=== PATIENT | male | born 1955 | race Caucasian/White ===

== ENCOUNTER → 2020-09-16 12:07 | Outpatient (CLI) | payer MEDICARE, SELFPAY ==
--- NOTE | ~2020-09-16 | XR_ITS ---
XR hip LT 2V w AP pelvis 09/16/2020 12:40 INDICATION: Left hip pain PROCEDURE: 3 views left hip COMPARISON: 06/06/2014 FINDINGS: Fracture, dislocation or subluxation is not identified. Pelvic rings are intact. Sacral for amen are symmetric. The soft tissues appear within normal limits. No foreign bodies are identified. There is mild osteoarthritis of the hips. IMPRESSION: 1: Mild osteoarthritis of the hips. Reviewed, dictated and finalized at location B.
== END ==
PROVIDERS: PCP Family Medicine; Visit Provider Family Medicine
DX: M25.552 Pain in left hip (principal); M16.0 Bilateral primary osteoarthritis of hip
CPT/HCPCS: 73502

== ENCOUNTER → 2020-10-27 14:23 | Outpatient (CLI) | payer MEDICARE, SELFPAY ==
--- NOTE | ~2020-10-27 | MR_ITS ---
EXAMINATION: MR lumbar spine wo con DATE: 10/27/2020 15:16 INDICATION: Low back pain. Left hip pain. TECHNIQUE: Magnetic resonance imaging (MRI) of the lumbar spine was performed without intravenous con trast. Sequences included sagittal T2-weighted FSE, sagittal T2-weighted FS FSE, sagittal T1-weighted FSE, and axial T2-weighted FSE. COMPARISON: CT abdomen and pelvis 02/15/2016 FINDINGS: Bone alignment is normal. There is mild chronic anterior wedging of T12 and L1 vertebral gilbert dies, likely physiologic. There is a 17 mm sclerotic lesion in L4 vertebral body. There is mildly dec reased disc height at L2-L3, L3-L4, and L5-S1. The distal spinal cord signal intensity is normal. The conus medullaris is at T12. The following disc levels are specifically discussed: L1-L2: The disc does not extend beyond the endplate margin. There is moderate bilateral facet joint o steoarthritis. There is no neural foraminal stenosis. There is no central canal stenosis. L2-L3: The disc is bulging. There is moderate bilateral facet joint osteoarthritis. There is mild anna ateral neural foraminal stenosis. There is no central canal stenosis. L3-L4: The disc is bulging and has an annular fissure. There is moderate bilateral facet joint osteoa rthritis. There is mild bilateral neural foraminal stenosis. There is mild central canal stenosis wit h posterior decompression. L4-L5: The disc does not extend beyond the endplate margin. There is moderate bilateral facet joint o steoarthritis. There is mild bilateral neural foraminal stenosis. There is no central canal stenosis. L5-S1: There is a left central protrusion with annular fissure. There is mild bilateral facet joint o steoarthritis. There is mild bilateral neural foraminal stenosis. There is mild central canal stenosi s. IMPRESSION: 1. L4 sclerotic lesion without correlate on the prior CT suspicious for metastatic disease. Lumbar sp ine CT is recommended. 2. Mild lumbar spondylosis. Reviewed, dictated and finalized at location A. [employer] IMPRESSION: 1. L4 sclerotic lesion without correlate on the prior CT suspicious for metasta tic disease. Lumbar spine CT is recommended. 2. Mild lumbar spondylosis.
== END ==
PROVIDERS: PCP Family Medicine; Visit Provider Nurse Practitioner Family
DX: M47.817 Spondylosis without myelopathy or radiculopathy, lumbosacral region (principal); M48.07 Spinal stenosis, lumbosacral region
CPT/HCPCS: 72148

== ENCOUNTER 2021-03-02 13:29 | Outpatient (CLI) | payer MEDICARE, SELFPAY ==
--- NOTE | ~2021-03-02 | XR_ITS ---
EXAMINATION: XR chest 2V DATE: 03/02/2021 13:46 INDICATION: Dyspnea. Recent COVID-19 pneumonia. TECHNIQUE: Frontal and lateral views of the chest were obtained. COMPARISON: Chest 2 views 06/24/2014 FINDINGS: There are mild airspace opacities in the lower lung zones. No pleural effusion or pneumotho rax. The heart size is normal. Surgical clips in the right upper quadrant are likely from cholecystec cris. IMPRESSION: 1. Mild airspace opacities in the lower lung zones, consistent with atelectasis versus pneumonia. Reviewed, dictated and finalized at location A.
== END 2021-03-02 13:30 | disposition home or self-care (01) ==
PROVIDERS: PCP Family Medicine; Visit Provider Family Medicine
DX: R06.00 Dyspnea, unspecified (principal)
CPT/HCPCS: 71046

== ENCOUNTER 2021-03-22 07:38 | Outpatient (CLI) | payer MEDICARE, SELFPAY ==
--- NOTE | 2021-03-22 15:57 | WPDPFTINT ---
PFT Procedure Performed PFT Procedure Performed Spirometry with Pre/Post Bronchodilator Plethysmography (Lung Vol) Diffusing Cap (DLCO) Flow Vol Loop PFT Interpretation This is a pulmonary function test with pre and post-bronchodilator spirometry, plethysmography and diffusing capacity. The test was performed and results interpreted in accordance with the 2019 and 2005 ATS/ERS Task Force guidelines respectively using the Global Lung Function Initiative-2012 reference equations. Patient demonstrated good effort and cooperation. Reproducibility criteria were met. The quality of the pre bronchodilator spirometry maneuver was Grade B and post bronchodilator spirometry maneuver was Grade A. Findings: Spirometry: There is decreased maximal expiratory airflow at all lung volumes with a concave expiratory flow tracing. The contour the inspiratory flow tracing is normal. The pre bronchodilator FVC is 4.25 L, 94% predicted. The pre bronchodilator FEV1 is 2.63 L, 75% predicted. The FEV1: FVC ratio 62%. The post bronchodilator FVC is 4.34 L, representing a 2% increase. The post bronchodilator FEV1 is 2.75 L, representing a 4% increase. Plethysmography: The total lung capacity is 9.14 L, 130% predicted. The functional residual capacity is 5.94 L, 162% predicted. The residual volume is 4.89 L, 212% predicted. Diffusion capacity: The absolute diffusion capacity is 21.5, 77% predicted. The diffusing capacity corrected for alveolar volume is 4.11, 99% predicted. Impression: There is a mild obstructive abnormality with a normal FEV1 and without significant improvement after inhaling a single dose of albuterol. The increase in residual volume is consistent with air trapping from an obstructive abnormality. Hyperinflation is present is demonstrated by the increase in functional residual capacity and total lung capacity and is consistent with an obstructive abnormality. The diffusing capacity is normal. There are no prior studies for comparison
== END 2021-03-22 07:39 | disposition home or self-care (01) ==
PROVIDERS: PCP Family Medicine; Visit Provider Family Medicine
DX: R06.00 Dyspnea, unspecified (principal)
CPT/HCPCS: 94060; 94726; 94729

== ENCOUNTER 2021-05-10 13:44 | Emergency (ER) | payer MEDICARE, SELFPAY ==
[2021-05-10 13:54] VITALS: BP 135/78; PULSE 112; RESP 18; TEMP 36.7; O2SAT 95
[2021-05-10] MEDS: ONDANSETRON INJ 4 MG/2 ML VIAL IV PUSH (14:39)
[2021-05-10] MEDS: SODIUM CHLORIDE 0.9% IV 1,000 ML 999 ML IV CONT (14:39)
[2021-05-10 14:41] LABS: Basophils Percent Auto 0.3 % (0.2-1.2); Eosinophils Absolute Auto 0.1 K/mm3 (0-0.3); Eosinophils Percent Auto 1.1 % (0-4.4); Hematocrit 49.3 % (42.0-52.0); Hemoglobin 16.8 g/dL (14.0-18.0); Immature Granulocyte Absolute 0.04 K/mm3 (0.00-0.031); Immature Granulocyte Percent A 0.3 % (0-0.5); Lymphocytes Absolute Auto 0.81 K/mm3 (0.9-3.2); Lymphocytes Percent Auto 6.7 % (18.3-44.2); Mean Corpuscular HGB Conc 34.1 g/dl (32-36); Mean Corpuscular Hemoglobin 29.3 pg (26-34); Mean Corpuscular Volume 85.9 fl (80-100); Mean Platelet Volume 10.5 fl (7.4-10.4); Monocytes Absolute Auto 0.6 K/mm3 (0.1-0.6); Neutrophils Absolute Auto 10.5 K/mm3 (1.3-6.7); Neutrophils Percent Auto 86.6 % (45.5-73.1); Platelet Count Result 228 k/mm3 (150-375); Red Blood Count 5.74 M/mm3 (4.6-6.20); White Blood Count 12.1 K/mm3 (4.5-10.0)
[2021-05-10 15:32] LABS: Alanine Aminotransferase 17 U/L (4-50); Albumin Level 3.5 g/dL (3.5-5.1); Alkaline Phosphatase 48 U/L (38-126); Anion Gap 8 mmol/L (8-16); Aspartate Amino Transferase 22 U/L (17-59); Bilirubin,Total 0.9 mg/dL (0.2-1.3); Blood Urea Nitrogen 14 mg/dL (9-20); Calcium 7.9 mg/dL (8.4-10.2); Carbon Dioxide 23 mmol/L (22-30); Chloride 106 mmol/L (98-107); Estimated CRCL calculation 79 ml/min; Estimated Glomerular Filt Rate > 60; Glucose 106 mg/dL (75-110); Lipase 24 U/L (23-300); Potassium 3.6 mmol/L (3.4-5.0); Sodium 137 mmol/L (137-145)
--- NOTE | 2021-05-10 15:56 | ED.NAVMDI ---
HPI - Nausea/Vomiting/Diarrhea General Chief complaint: Nausea/Vomiting/Diarrhea Stated complaint: FEVER,ABD PAIN,DIARRHEA Time Seen by Provider: 05/10/21 13:52 History of Present Illness HPI Narrative: Patient is a 65-year-old male who presents ER with diarrhea. Onset yesterday. He reports 20 episodes of loose stools in the last 2 days. Reports fever 103.0 ?F last night. No aggravating or alleviating factors. No known sick contacts. No swelled food ingested. Reports he has not recently been on antibiotics. He is having some crampy abdominal discomfort related to the diarrhea but no overt pain. No blood in stool or vomit. Related Data Home Medications Medication Instructions Recorded Confirmed acetaminophen 650 mg 650 mg PO Q12H 10/19/20 03/02/21 tablet,extended release Allergies Allergy/AdvReac Type Severity Reaction Status Date / Time latex Allergy Unknown Blister Verified 05/10/21 14:04 Review of Systems Review of Systems: All systems reviewed & are unremarkable except as noted in HPI and below Constitutional: Constitutional: Denies chills, Denies fever(s) and Denies weakness ENT: Denies nasal congestion and Denies sore throat Cardiovascular: Cardiovascular: Denies chest pain and Denies radiating jaw, neck or arm pain Gastrointestinal: Gastrointestinal: Reports abdominal pain, Denies heartburn, Reports diarrhea, Reports nausea and Reports vomiting Genitourinary: Genitourinary: Denies hematuria, Denies dysuria and Denies urinary frequency [facility] Past Medical History Medical History (Updated 05/10/21 @ 16:41 by Hari Ball MD) Abnormal fasting glucose Adhesive capsulitis of left shoulder BMI 29.0-29.9,adult BMI 31.0-31.9,adult Chronic bilateral low back pain with bilateral sciatica Chronic depression Chronic left shoulder pain COPD (chronic obstructive pulmonary disease) (03/22/21) mild obstructive airway disease with air trapping on PFT on 03/22/2021 COVID-19 (11/09/20) Depression Dyspnea on exertion Exposure to COVID-19 virus GERD with esophagitis Hypertension Irritable bowel syndrome with diarrhea Left hip pain Loss, sense of, smell Lumbar back pain with radiculopathy affecting left lower extremity Nocturia Plantar fasciitis, bilateral Polyp of colon Psoriasis Seasonal allergic rhinitis Vitamin B12 deficiency anemia Vitamin D deficiency, unspecified Surgical History Surgical History History of cholecystectomy (~01/2010) Previous back surgery (~02/2018) Family History Family History Mother Family history of diabetes mellitus in first degree relative Father , rx drug overdose Depression Grandparent Cerebrovascular accident Heart disease Grandparent Leukemia Cancer Grandparent Depression Suicide Sibling Diabetes mellitus Sibling Autoimmune disorder Other Arthritis Hypertension Social History Social History Smoking status: Former smoker Smoking end date: 11/27/09 Alcohol intake: current Gender identity (if verbalized by the patient): Male Exam Narrative: Exam Narrative: GENERAL: Well-appearing, well-nourished, and in no acute distress. HEAD: Normocephalic, atraumatic. EYES: PERRL and EOMI. CHEST: Clear to auscultation. No respiratory distress. HEART: Regular rate and rhythm. Normal peripheral pulses. ABDOMEN: Soft, nontender, nondistended. EXTREMITIES: Normal range of motion. No edema. SKIN: Warm, dry, no rash. NEURO: Alert and oriented x3. Course Course Emergency Course: Abdomen still soft nontender nondistended. Feels better with fluids and antiemetics. Discharge with supportive therapy. Vital Signs Vital signs: Vital Signs Temperature 98.1 F 05/10/21 13:54 Pulse Rate 112 H 05/10/21 13:54 Respiratory Rate 18
[2021-05-10 17:05] VITALS: BP 114/89; PULSE 101; RESP 16
== END 2021-05-10 17:05 | disposition home or self-care (01) ==
PROVIDERS: Emergency Provider Emergency Medicine; PCP Family Medicine
DX: K52.9 Noninfective gastroenteritis and colitis, unspecified (principal); F32.9 Major depressive disorder, single episode, unspecified; J44.9 Chronic obstructive pulmonary disease, unspecified; K21.9 Gastro-esophageal reflux disease without esophagitis; I10 Essential (primary) hypertension
CPT/HCPCS: 36415; 80053; 83690; 85025; 96361; 96374; 99284; J2405; J7030

== ENCOUNTER 2021-05-14 05:04 | Emergency (ER) | payer MEDICARE, SELFPAY ==
--- NOTE | ~2021-05-14 | CT_ITS ---
EXAMINATION: CT abdomen pelvis w con DATE: 05/14/2021 06:14 INDICATION: Abdominal pain TECHNIQUE: Computed tomography (CT) of the abdomen and pelvis was performed with 100 cc Omnipaque 350 intravenous contrast. The dose-length product was 832.48 mGy-cm. Automated exposure control and iter ative reconstruction technique were employed. COMPARISON: None. FINDINGS: Lung bases are unremarkable. Heart size normal. No significant pleural or pericardial effus ion. No significant vascular abnormality. No lymphadenopathy. Fatty infiltration of the liver. Status post cholecystectomy. The spleen, pancreas, adrenal glands an d kidneys are unremarkable. No hydronephrosis. There is mild thickening of the sigmoid colon and rect um, consistent with mild proctocolitis. No free air or free fluid. Mild atherosclerosis of the aorta without aneurysm. No acute osseous abnormality. Mild lumbar spondylosis. IMPRESSION: 1. Mild thickening of the sigmoid colon and rectum, compatible with proctocolitis, most likely infect ious or inflammatory. Reviewed, dictated and finalized at location A. IMPRESSION: 1. Mild thickening of the sigmoid colon and rectum, compatible with proctocolit is, most likely infectious or inflammatory.
[2021-05-14 05:09] VITALS: BP 151/139; PULSE 110; RESP 16; TEMP 36.5; O2SAT 95
--- NOTE | 2021-05-14 05:24 | ECG_ITS ---
Measurements Intervals [place] Rate: 104 P: 50 AL: 152 QRS: -31 QRSD: 96 T: 53 QT: 325 QTc: 429 Interpretive Statements SINUS TACHYCARDIA LEFT AXIS DEVIATION BASELINE ARTIFACT- I, II, III, AVR, AVL, AVF, V1-V6 BORDERLINE ECG Electronically Signed On 05-14-2021 7:00:03 CDT by Scar Jaimes D.O.
[2021-05-14] MEDS: ONDANSETRON INJ 4 MG/2 ML VIAL IV PUSH (05:40)
[2021-05-14] MEDS: SODIUM CHLORIDE 0.9% IV 1,000 ML 999 ML IV CONT ×2 (05:40→06:35)
--- NOTE | 2021-05-14 05:42 | ED.GENADULT ---
HPI - General Adult General Chief complaint: Nausea/Vomiting/Diarrhea Stated complaint: vomiting Time Seen by Provider: 05/14/21 05:11 History of Present Illness HPI narrative: Patient 62-year-old gentleman who presents emerged from with chief complaint of abdominal pain and diarrhea. The patient states he was seen in the emergency department several days ago after he had been having chills body aches fevers and had a headache and diarrhea. Patient states he was given medications in the emergency department was hydrated discharged home and is continued to have watery diarrhea. Patient states that he feels extremely weak and extremely rundown. Patient states that he has not had a fever since then but feels very weak. Related Data Home Medications Medication Instructions Recorded Confirmed acetaminophen 650 mg 650 mg PO Q12H 10/19/20 03/02/21 tablet,extended release Allergies Allergy/AdvReac Type Severity Reaction Status Date / Time latex Allergy Unknown Blister Verified 05/10/21 14:04 Review of Systems Review of Systems: Narrative: A 10 system review of systems was completed on the patient and is negative except for what is stated in the HPI. Nursing and ancillary documentation was reviewed. [facility] Past Medical History Medical History Abnormal fasting glucose Adhesive capsulitis of left shoulder BMI 29.0-29.9,adult BMI 31.0-31.9,adult Chronic bilateral low back pain with bilateral sciatica Chronic depression Chronic left shoulder pain COPD (chronic obstructive pulmonary disease) (03/22/21) mild obstructive airway disease with air trapping on PFT on 03/22/2021 COVID-19 (11/09/20) Depression Dyspnea on exertion Exposure to COVID-19 virus GERD with esophagitis Hypertension Irritable bowel syndrome with diarrhea Left hip pain Loss, sense of, smell Lumbar back pain with radiculopathy affecting left lower extremity Nocturia Plantar fasciitis, bilateral Polyp of colon Psoriasis Seasonal allergic rhinitis Vitamin B12 deficiency anemia Vitamin D deficiency, unspecified Surgical History Surgical History History of cholecystectomy (~01/2010) Previous back surgery (~02/2018) Family History Family History Mother Family history of diabetes mellitus in first degree relative Father , rx drug overdose Depression Grandparent Cerebrovascular accident Heart disease Grandparent Leukemia Cancer Grandparent Depression Suicide Sibling Diabetes mellitus Sibling Autoimmune disorder Other Arthritis Hypertension Social History Social History Smoking status: Former smoker Smoking end date: 11/27/09 Alcohol intake: current Gender identity (if verbalized by the patient): Male Exam Narrative: Exam Narrative: GENERAL: Well-appearing, well-nourished, and in no acute distress. HEAD: Normocephalic, atraumatic. EYES: PERRLA and EOMI. ENT: Nares clear, no rhinorrhea or epistaxis. Mucous membranes moist. NECK: Supple. CHEST: Clear to auscultation. No respiratory distress. HEART: Regular rate and rhythm. No murmur heard. Normal peripheral pulses. ABDOMEN: Soft, nontender, nondistended, normal active bowel sounds. EXTREMITIES: Normal range of motion. No edema. SKIN: Warm, dry, no rash. NEURO: No focal deficits. Alert and oriented x3. PSYCH: Normal mood and affect. Course Vital Signs Vital signs: Vital Signs Temperature 36.5 C 05/14/21 05:09 Pulse Rate 110 H 05/14/21 05:09 Respiratory Rate 16 05/14/21 05:09 Blood Pressure 151/139 H 05/14/21 05:09 Pulse Oximetry 95 05/14/21 05:09 Temperature 36.5 C 05/14/21 05:09 Pulse Rate 87 05/14/21 06:35 Respiratory Rate 24 H 05/14/21 0
[2021-05-14 05:45] LABS: Basophils Absolute Auto 0.1 K/mm3 (0.0-0.1); Basophils Percent Auto 0.6 % (0.2-1.2); Eosinophils Absolute Auto 0.1 K/mm3 (0-0.3); Eosinophils Percent Auto 1.3 % (0-4.4); Hematocrit 48.9 % (42.0-52.0); Hemoglobin 16.8 g/dL (14.0-18.0); Immature Granulocyte Absolute 0.02 K/mm3 (0.00-0.031); Immature Granulocyte Percent A 0.2 % (0-0.5); Lymphocytes Absolute Auto 1.32 K/mm3 (0.9-3.2); Mean Corpuscular HGB Conc 34.4 g/dl (32-36); Mean Corpuscular Hemoglobin 29.3 pg (26-34); Mean Corpuscular Volume 85.3 fl (80-100); Mean Platelet Volume 9.8 fl (7.4-10.4); Monocytes Absolute Auto 1.2 K/mm3 (0.1-0.6); Monocytes Percent Auto 13.2 % (2.6-8.5); Neutrophils Absolute Auto 6.7 K/mm3 (1.3-6.7); Neutrophils Percent Auto 70.7 % (45.5-73.1); Platelet Count Result 291 k/mm3 (150-375); Red Blood Count 5.73 M/mm3 (4.6-6.20); Red Cell Distribution Width 13.7 % (11.5-14.5); White Blood Count 9.4 K/mm3 (4.5-10.0)
--- NOTE | 2021-05-14 05:45 | PC.NURSE ---
0540- Zofran 4mg Iv given NS 1000 ml IV started right forearm IV site Tylenol 1000mg IV started
[2021-05-14 05:54] LABS: Lactic Acid Reflex 1.1 mmol/L (0.7-2.1)
[2021-05-14 05:55] LABS: Alanine Aminotransferase 18 U/L (4-50); Albumin Level 4.2 g/dL (3.5-5.1); Alkaline Phosphatase 63 U/L (38-126); Anion Gap 11 mmol/L (8-16); Aspartate Amino Transferase 21 U/L (17-59); Bilirubin,Total 0.9 mg/dL (0.2-1.3); Blood Urea Nitrogen 19 mg/dL (9-20); Carbon Dioxide 22 mmol/L (22-30); Chloride 104 mmol/L (98-107); Estimated CRCL calculation 62 ml/min; Estimated Glomerular Filt Rate 56; Glucose 138 mg/dL (75-110); Lipase 58 U/L (23-300); Potassium 3.6 mmol/L (3.4-5.0); Sodium 137 mmol/L (137-145)
[2021-05-14 06:00] VITALS: BP 114/65; PULSE 94; RESP 20; O2SAT 95
[2021-05-14 06:07] LABS: Troponin I < 0.012 ng/mL (0.000-0.034)
--- NOTE | 2021-05-14 06:10 | PC.NURSE ---
Tylenol IVF finished
--- NOTE | 2021-05-14 06:34 | PC.NURSE ---
0630 NS 1000ml finished Second liter NS hung
[2021-05-14 06:35] VITALS: BP 100/64; PULSE 87; RESP 24; O2SAT 99
[2021-05-14 07:16] LABS: Add Urine Microscopic? YES; Appearance Urine Clear (Clear); Bacteria Urine Trace /hpf; Bilirubin Urine Negative (Negative); Blood Urine 1+ (Negative); Color Urine Yellow (Yellow); Glucose Urine UA Negative (Negative); Ketones Urine Negative (Negative); Leukocyte Esterase Ur Negative LEU/UL (Negative); Mucus Urine Few /lpf; Nitrate Urine Negative (Negative); Protein Urine 1+ mg/dL (Negative); Squamous Epithelial Cell Urine Occasional /hpf (Few); Urobilinogen Urine Negative mg/dL (<2.0)
[2021-05-14] MEDS: CIPROFLOXACIN 500 MG TAB PO (08:10)
[2021-05-14] MEDS: metroNIDAZOLE 250 MG TABLET 500 MG PO (08:10)
[2021-05-14 08:17] VITALS: BP 114/77; PULSE 79; RESP 16
== END 2021-05-14 08:17 | disposition home or self-care (01) ==
PROVIDERS: Emergency Provider Emergency Medicine; PCP Family Medicine
DX: K52.9 Noninfective gastroenteritis and colitis, unspecified (principal); J44.9 Chronic obstructive pulmonary disease, unspecified; K21.00 Gastro-esophageal reflux disease with esophagitis, without bleeding; I10 Essential (primary) hypertension; K58.0 Irritable bowel syndrome with diarrhea; Z86.16 Personal history of COVID-19; D51.9 Vitamin B12 deficiency anemia, unspecified; E55.9 Vitamin D deficiency, unspecified; Z87.891 Personal history of nicotine dependence; R00.0 Tachycardia, unspecified
CPT/HCPCS: 36415; 74177; 80053; 81001; 83605; 83690; 84484; 85025; 87086; 93005; 96361; 96365; 96375; 99284; A9270; J0131; J2405; J7030; Q9967

== ENCOUNTER → 2021-06-09 14:43 | Outpatient (CLI) | payer MEDICARE, SELFPAY ==
--- NOTE | ~2021-06-09 | XR_ITS ---
EXAMINATION: XR foot LT min 3V DATE: 06/09/2021 15:48 INDICATION: Swelling and bruising at the left great toe following kicking injury TECHNIQUE: Dorsoplantar, two oblique and lateral views of the left foot were obtained. COMPARISON: None. FINDINGS: Alignment is normal. No fracture. Minimal to mild polyarticular osteoarthritis at the first metatarso phalangeal and a few tarsal metatarsal and interphalangeal joints. Small corticated ossicle at the do rsal aspect of the first metatarsophalangeal joint. Small plantar calcaneal spur. IMPRESSION: 1. No acute osseous abnormality. Reviewed, dictated and finalized at location A.
== END ==
PROVIDERS: PCP Family Medicine; Visit Provider Family Medicine
DX: M79.675 Pain in left toe(s) (principal)
CPT/HCPCS: 73630

== ENCOUNTER 2021-09-23 00:18 | Day surgery (SDC) | payer MEDICARE, SELFPAY ==
[2021-09-02 14:39] VITALS: BMI 30.9
[2021-09-23 06:48] VITALS: BP 140/83; PULSE 63; RESP 20; TEMP 36.8; O2SAT 94
[2021-09-23] MEDS: LACTATED RINGERS 1,000 ML 150 ML IV CONT (06:55)
--- NOTE | 2021-09-23 07:44 | WPDGICN ---
Assessment and Plan Assessment and plan (1) Personal history of colonic polyps: Code(s): Z86.010 - Personal history of colonic polyps Status: Acute Assessment and Plan: Patient has a history of adenomatous colon polyp removed from the colon 2017. Plan is for surveillance colonoscopy at this time. Further recommendations will be given after endoscopy. GI Consult Note Consult date/time: 09/23/21 07:44 HPI: Jax Fajardo is a 66 year old male Presents for screening colonoscopy. Patient has a history of adenomatous colon polyp removed from the colon [place] [address] Ortiz. He has done well since that time. He was seen in the emergency room with a brief episode of infectious gastroenteritis that is now resolved during the summer of 2020. His current weight appetite and bowel movements are normal. He denies abdominal pain. He has had no bleeding. Family history is noncontributory. Review of Systems Review of Systems: All systems reviewed & are unremarkable except as noted in HPI and below PMFSH Past Medical History Medical History (Updated 08/10/21 @ 11:58 by Camelia Alejandra NP) Abnormal fasting glucose Adhesive capsulitis of left shoulder Aortic atherosclerosis BMI 29.0-29.9,adult BMI 31.0-31.9,adult Chronic bilateral low back pain with bilateral sciatica Chronic depression Chronic left shoulder pain Colitis, acute Colon cancer screening COPD (chronic obstructive pulmonary disease) (03/22/21) mild obstructive airway disease with air trapping on PFT on 03/22/2021 COVID-19 (11/09/20) Depression Dyshidrotic eczema (~06/23/21) Dyspnea on exertion Exposure to COVID-19 virus Fatty infiltration of liver GERD with esophagitis Hypertension Irritable bowel syndrome with diarrhea Left hip pain Loss, sense of, smell Lumbar back pain with radiculopathy affecting left lower extremity Nocturia Pain of left great toe Personal history of colonic polyps Plantar fasciitis, bilateral Polyp of colon Psoriasis Seasonal allergic rhinitis Vitamin B12 deficiency anemia Vitamin D deficiency, unspecified Surgical History Surgical History History of cholecystectomy (~01/2010) Previous back surgery (~02/2018) Family History Family History Mother Family history of diabetes mellitus in first degree relative Father , rx drug overdose Depression Grandparent Cerebrovascular accident Heart disease Grandparent Leukemia Cancer Grandparent Depression Suicide Sibling Diabetes mellitus Sibling Autoimmune disorder Other Arthritis Hypertension Social History Social History Smoking packs per day: 1 Smoking cigarettes per day: 20.0 Years smoked: 45 Smoking pack-years: 45.00 Smoking status: Former smoker Tobacco type: cigarettes Smoking end date: 11/27/09 Alcohol intake: current Alcohol use details: 2-3 per week Living arrangements: with family Gender identity (if verbalized by the patient): Male Meds Home Medications and Allergies Home Medications Medication Instructions Recorded Confirmed Type meloxicam 15 mg tablet 15 mg PO DAILY PRN #90 tablet 12/03/20 09/02/21 Rx lisinopril 20 mg tablet 20 mg PO DAILY #90 tablet 02/03/21 09/02/21 Rx pantoprazole 40 mg tablet,delayed 40 mg PO QAM #90 tablet 02/03/21 09/02/21 Rx release fluticasone propionate 50 1 spray INTRANASAL BID #48 g 03/02/21 09/02/21 Rx mcg/actuation nasal spray,suspension hydrocodone 5 mg-acetaminophen 325 1 tablet PO Q6H PRN #60 tablet 03/02/21 09/02/21 Rx mg tablet albuterol sulfate 90 mcg/actuation 2 puff INHALATION Q4H PRN #8.5 g 03/23/21 09/02/21 Rx aerosol inhaler tamsulosin 0.4 mg capsule 0.4 mg PO DAILY #90 cap 04/19/21 09/02/21 Rx emollient combination no.71 1 ea TOPICAL BI
--- NOTE | 2021-09-23 07:50 | WPDANESEPPF ---
Anes - Initial Pre Proc Eval Procedure: Operation Date: 09/23/21 08:00 Proposed Procedures p Colonoscopy - Keith Bello MD Date/Time: 09/23/21 07:50 Surgeon: Keith Bello MD Pre Op Diagnosis: colitis Patient Data Age: 66 Gender: M Height: 1.78 m Weight: 95 kg Last Vital Signs Temp 98.2 F 09/23/21 06:48 Pulse 63 09/23/21 06:48 Resp 20 09/23/21 06:48 BP 140/83 09/23/21 06:48 Pulse Ox 94 09/23/21 06:48 Allergies Allergy/AdvReac Type Severity Reaction Status Date / Time latex Allergy Severe Blister Verified 09/23/21 06:46 Home Medications Medication Instructions Recorded Confirmed Type meloxicam 15 mg tablet 15 mg PO DAILY PRN #90 tablet 12/03/20 09/02/21 Rx lisinopril 20 mg tablet 20 mg PO DAILY #90 tablet 02/03/21 09/02/21 Rx pantoprazole 40 mg tablet,delayed 40 mg PO QAM #90 tablet 02/03/21 09/02/21 Rx release fluticasone propionate 50 1 spray INTRANASAL BID #48 g 03/02/21 09/02/21 Rx mcg/actuation nasal spray,suspension hydrocodone 5 mg-acetaminophen 325 1 tablet PO Q6H PRN #60 tablet 03/02/21 09/02/21 Rx mg tablet albuterol sulfate 90 mcg/actuation 2 puff INHALATION Q4H PRN #8.5 g 03/23/21 09/02/21 Rx aerosol inhaler tamsulosin 0.4 mg capsule 0.4 mg PO DAILY #90 cap 04/19/21 09/02/21 Rx emollient combination no.71 1 ea TOPICAL BID 06/23/21 09/02/21 History triamcinolone acetonide 0.5 % 1 applic TOPICAL BID #90 g 06/23/21 09/02/21 Rx topical cream mecobalamin (vitamin B12) 1,000 1,000 mcg PO DAILY 08/10/21 09/02/21 History mcg chewable tablet Patient hx anesthesia problems: none Family hx anesthesia problems: none Results Review: All pre-operative results and documents have been reviewed as part of the pre-operative evaluation. [facility] Past Medical History Medical History (Updated 08/10/21 @ 11:58 by Camelia Alejandra NP) Abnormal fasting glucose Adhesive capsulitis of left shoulder Aortic atherosclerosis BMI 29.0-29.9,adult BMI 31.0-31.9,adult Chronic bilateral low back pain with bilateral sciatica Chronic depression Chronic left shoulder pain Colitis, acute Colon cancer screening COPD (chronic obstructive pulmonary disease) (03/22/21) mild obstructive airway disease with air trapping on PFT on 03/22/2021 COVID-19 (11/09/20) Depression Dyshidrotic eczema (~06/23/21) Dyspnea on exertion Exposure to COVID-19 virus Fatty infiltration of liver GERD with esophagitis Hypertension Irritable bowel syndrome with diarrhea Left hip pain Loss, sense of, smell Lumbar back pain with radiculopathy affecting left lower extremity Nocturia Pain of left great toe Personal history of colonic polyps Plantar fasciitis, bilateral Polyp of colon Psoriasis Seasonal allergic rhinitis Vitamin B12 deficiency anemia Vitamin D deficiency, unspecified Surgical History Surgical History History of cholecystectomy (~01/2010) Previous back surgery (~02/2018) Family History Family History Mother Family history of diabetes mellitus in first degree relative Father , rx drug overdose Depression Grandparent Cerebrovascular accident Heart disease Grandparent Leukemia Cancer Grandparent Depression Suicide Sibling Diabetes mellitus Sibling Autoimmune disorder Other Arthritis Hypertension Social History Social History Smoking packs per day: 1 Smoking cigarettes per day: 20.0 Years smoked: 45 Smoking pack-years: 45.00 Smoking status: Former smoker Tobacco type: cigarettes Smoking end date: 11/27/09 Alcohol intake: current Alcohol use details: 2-3 per week Living arrangements: with family Gender identity (if verbalized by the patient): Male Anes - Eval Final PreProcedure Day of Procedure 09/23/21 07:50 Patient
[2021-09-23 08:17] VITALS: BP 119/81; PULSE 76; RESP 25; O2SAT 95
[2021-09-23 08:27] VITALS: BP 125/88; PULSE 66; RESP 16; O2SAT 97
[2021-09-23 08:37] VITALS: BP 109/73; PULSE 66; RESP 16; O2SAT 97
== END 2021-09-23 08:48 | disposition home or self-care (01) ==
PROVIDERS: PCP Family Medicine; Visit Provider Internal Medicine Gastroenterology
PROC: 0DJD8ZZ Inspection of Lower Intestinal Tract, Via Natural or Artificial Opening Endoscopic (ICD-10-PCS; CPT 45378; principal; 2021-09-23 08:00)
DX: Z12.11 Encounter for screening for malignant neoplasm of colon (principal); Z86.010 Personal history of colon polyps; K52.9 Noninfective gastroenteritis and colitis, unspecified; Z79.51 Long term (current) use of inhaled steroids; J44.9 Chronic obstructive pulmonary disease, unspecified; F32.9 Major depressive disorder, single episode, unspecified; I70.0 Atherosclerosis of aorta; M54.42 Lumbago with sciatica, left side; M54.41 Lumbago with sciatica, right side; Z86.16 Personal history of COVID-19; L30.1 Dyshidrosis [pompholyx]; K76.0 Fatty (change of) liver, not elsewhere classified; K21.00 Gastro-esophageal reflux disease with esophagitis, without bleeding; I10 Essential (primary) hypertension; M54.16 Radiculopathy, lumbar region; R35.1 Nocturia; M72.2 Plantar fascial fibromatosis; L40.9 Psoriasis, unspecified; E55.9 Vitamin D deficiency, unspecified; E53.8 Deficiency of other specified B group vitamins; Z90.49 Acquired absence of other specified parts of digestive tract; Z87.891 Personal history of nicotine dependence; E66.9 Obesity, unspecified; Z68.30 Body mass index [BMI] 30.0-30.9, adult; R73.09 Other abnormal glucose
CPT/HCPCS: G0105; J2704; J7120

== ENCOUNTER 2022-07-06 15:03 | Outpatient (CLI) | payer MEDICARE, SELFPAY ==
--- NOTE | ~2022-07-06 | XR_ITS ---
EXAMINATION: XR chest 2V Exam Date/Time: 07/06/2022 15:10 CDT HISTORY: Persistent cough, productive Comparison: 03/02/2021. RESULT: Lines, tubes, and devices: None. Lungs and pleura: Linear atelectasis/scarring lung bases. Mild lower lung reticulonodular opacities. Cardiomediastinal silhouette: Stable. Other: No acute osseous or upper abdominal finding. IMPRESSION: Pulmonary opacities may represent bronchiolitis, as can be seen with atypical infection, asthma, aspi ration, and small airways disease. Reviewed, dictated and finalized at location K. IMPRESSION: Pulmonary opacities may represent bronchiolitis, as can be seen with atypical i nfection, asthma, aspiration, and small airways disease.
== END 2022-07-06 15:04 | disposition home or self-care (01) ==
PROVIDERS: PCP Family Medicine; Visit Provider Family Medicine
DX: J20.9 Acute bronchitis, unspecified (principal); R05.3 Chronic cough
CPT/HCPCS: 71046

== ENCOUNTER 2023-01-05 09:04 | Outpatient (CLI) | payer MEDICARE, SELFPAY ==
--- NOTE | 2023-01-05 09:24 | ECG_ITS ---
Measurements Intervals [place] Rate: 60 P: 29 AR: 164 QRS: -9 QRSD: 90 T: 29 QT: 391 QTc: 391 Interpretive Statements SINUS RHYTHM COMPARED TO ECG 05/14/2021 05:35:20 SINUS RHYTHM NOW PRESENT Electronically Signed On 01-05-2023 15:40:40 [employer] by Derrick De Anda M.D.
== END 2023-01-05 09:05 | disposition home or self-care (01) ==
LOC: ANHCARD 09:08
PROVIDERS: PCP Family Medicine; Visit Provider Family Medicine
DX: R07.9 Chest pain, unspecified (principal)
CPT/HCPCS: 93005

== ENCOUNTER 2023-03-13 10:21 | Outpatient (CLI) | payer MEDICARE, SELFPAY ==
[2023-03-13 11:11] LABS: Appearance Urine Clear (Clear); Bacteria Urine None Seen /hpf; Bilirubin Urine Negative (Negative); Blood Urine Negative (Negative); Color Urine Yellow (Yellow); Glucose Urine UA Negative (Negative); Ketones Urine Negative (Negative); Leukocyte Esterase Ur Trace LEU/UL (NEGATIVE); Nitrate Urine Negative (Negative); Non Pathogenic Casts 0-2; Protein Urine Negative (Negative); RBC Urine 0-2 /hpf (0-2); Specific Grav Ur 1.009 (1.001-1.035); Squamous Epithelial Cell Urine None seen /hpf (Few); Urobilinogen Urine 0.2 mg/dL (<2.0); WBC Urine 0-5 /hpf (0-3)
[2023-03-13 11:26] LABS: Add Urine Microscopic? YES
== END 2023-03-13 10:22 | disposition home or self-care (01) ==
PROVIDERS: PCP Family Medicine; Visit Provider Family Medicine
DX: R36.1 Hematospermia (principal)
CPT/HCPCS: 81001; 87086

== ENCOUNTER 2023-04-03 08:49 | Outpatient (CLI) | payer MEDICARE, SELFPAY ==
--- NOTE | ~2023-04-03 | XR_ITS ---
EXAMINATION: XR abdomen/kub 1V DATE: 04/03/2023 09:21 INDICATION: Hematospermia. TECHNIQUE: A supine view of the abdomen on 2 radiographs was obtained. COMPARISON: CT abdomen and pelvis 04/03/2023 FINDINGS: There are no dilated loops of bowel. There are phleboliths in the pelvis. Surgical clips in the right upper quadrant are likely from cholecystectomy. There is no urolithiasis. IMPRESSION: 1. No urolithiasis. Reviewed, dictated and finalized at location A. IMPRESSION: 1. No urolithiasis.
--- NOTE | ~2023-04-03 | CT_ITS ---
EXAMINATION: CT abdomen pelvis wo/w con DATE: 04/03/2023 09:45 INDICATION: Hematospermia. TECHNIQUE: Computed tomography (CT) of the abdomen and pelvis was performed without and with intraven ous contrast using a total of 130 mL Omnipaque-350 intravenous contrast with a double-bolus technique for simultaneous opacification of the renal parenchyma and renal collecting system. Automated exposu re control and iterative reconstruction technique were employed. The dose-length product was 2613.48 mGy-cm. COMPARISON: CT abdomen and pelvis 05/14/2021 FINDINGS: The visualized portions of the lung bases demonstrate mild emphysema and mild atelectasis. Calcified right lung nodules and calcified right hilar lymph nodes are consistent with old granulomatous diseas e. No pleural effusion. The heart size is normal. No pericardial effusion. There is diffuse hepatic s teatosis. There are changes of cholecystectomy. Calcifications in the spleen are consistent with old granulomatous disease. The pancreas, adrenal glands, and right kidney are normal. There is a 2.0 cm c yst in left kidney. There is no urolithiasis. The ureters are well opacified and are normal. The pros stewart is moderately enlarged. The appendix is normal. There are no dilated loops of bowel. There are n o pathologically enlarged lymph nodes. There is no free intraperitoneal fluid. There is mild thoracic and lumbar spondylosis. IMPRESSION: 1. No urolithiasis. 2. Moderately enlarged prostate. Reviewed, dictated and finalized at location A.
[2023-04-03 09:30] LABS: Estimated Glomerular Filt Rate > 60
== END 2023-04-03 08:50 | disposition home or self-care (01) ==
PROVIDERS: PCP Family Medicine; Visit Provider Nurse Practitioner Adult Health
DX: R36.1 Hematospermia (principal); N40.0 Benign prostatic hyperplasia without lower urinary tract symptoms
CPT/HCPCS: 74018; 74178; Q9967

== ENCOUNTER 2023-04-14 14:36 | Outpatient (CLI) | payer MEDICARE, SELFPAY ==
--- NOTE | ~2023-04-14 | XR_ITS ---
EXAMINATION: XR finger 5th LT min 2V DATE: 04/14/2023 14:58 INDICATION: Left hand fifth digit foreign body. TECHNIQUE: 4 views of left hand fifth digit were obtained. COMPARISON: None. FINDINGS: Bone alignment is normal. No fracture. Joint spaces are well maintained. IMPRESSION: 1. No radiopaque foreign body. Reviewed, dictated and finalized at location A.
== END 2023-04-14 14:37 | disposition home or self-care (01) ==
LOC: ANHIMG 14:39
PROVIDERS: PCP Family Medicine; Visit Provider Nurse Practitioner Family
DX: S60.457A Superficial foreign body of left little finger, initial encounter (principal); X58.XXXA Exposure to other specified factors, initial encounter
CPT/HCPCS: 73140

== ENCOUNTER 2023-05-11 15:45 | Outpatient (CLI) | payer MEDICARE, SELFPAY ==
--- NOTE | 2023-05-11 | ECHO_ITS ---
Patient Info Name: Jax Fajardo Age: 67 years : 1955 Gender: Male Ht: 70 in Wt: 220 lbs BSA: 2.25 m2 HR: 77 bpm BP: 132 / 86 mmHg Heart Rhythm: Sinus Rhythm Exam Date: 05/11/2023 4:10 PM Site Location: [Add Site Locations] Exam Location: [facility] Card Pulmonary Patient Status: Outpatient Admit Date: 05/11/2023 Staff Ordering Physician: Isaias Ashraf MD District Sales Representative: Sarah Huggins RDCS Attending Provider: Isaias Ashraf MD Exam Type: CA echo doppler color flow Study Info Indications - angina pectoris - rodriguez - essential htn, Complete two-dimensional, color flow and Doppler transthoracic echocardiogram is performed. Summary 1. Complete two-dimensional, color flow and Doppler transthoracic echocardiogram is performed. 2. Normal left ventricular size and overall systolic function. 3. Mildly infero posterior hypokinesia. 4. Borderline left atrial enlargement. 5. No valvular dysfunction. Left Ventricle Left ventricular chamber dimension is normal. Left ventricular systolic function is normal, estimated at 50-55%. The left ventricular diastolic function is grade I diastolic dysfunction. Right Ventricle Right ventricular chamber dimension is normal. Left Atria Left atrial chamber dimension is normal. Right Atria Right atrial chamber dimension is normal. Aortic Valve The aortic valve is normal. Pulmonic Valve The pulmonic valve is normal. Mitral Valve The mitral valve has normal leaflets. Tricuspid Valve The tricuspid valve leaflets are normal. There is trace tricuspid valve regurgitation. Pericardium/Pleural The pericardium appears normal. Aorta The aortic root size at the sinus of Valsalva is normal. Left Ventricular Outflow Tract Name Value Normal LVOT 2D LVOT Diameter 2.1 cm LVOT Doppler LVOT Peak Velocity 107 cm/s LVOT Peak Gradient 5 mmHg LVOT Mean Gradient 2 mmHg LVOT VTI 20 cm LVOT VTI/AV VTI Ratio 0.8 LVOT Stroke Volume 69 ml LVOT CO 14.2 l/min LVOT CI 6.3 l/min/m2 Pulmonic Valve Name Value Normal RVOT Doppler RVOT Peak Gradient 1 mmHg PV Doppler PV Peak Velocity 142 cm/s PV Peak Gradient 4 mmHg Mitral Valve Name Value Normal MV Doppler MV Decel Baker 320 cm/s2 MV PHT 59 ms MV Area (PHT)
== END 2023-05-11 15:46 | disposition home or self-care (01) ==
PROVIDERS: PCP Family Medicine; Visit Provider Internal Medicine Cardiovascular Disease
DX: I20.9 Angina pectoris, unspecified (principal); I10 Essential (primary) hypertension; R06.09 Other forms of dyspnea; I51.7 Cardiomegaly
CPT/HCPCS: 93306

== ENCOUNTER 2023-11-15 20:18 | Emergency (ER) | payer MEDICARE, SELFPAY ==
[2023-11-15 20:45] VITALS: BP 116/72; PULSE 71; RESP 16; TEMP 36.4; O2SAT 92
[2023-11-15 22:34] LABS: Influenza A QL RT-PCR Positive (Negative); Influenza B QL RT-PCR Negative (Negative); RSV RNA, RT-PCR Negative (Negative); SARS-CoV-2 RNA PCR Negative (Negative)
--- NOTE | 2023-11-15 22:47 | ED.GENADULT ---
HPI - General Adult General Chief complaint: Upper Respiratory Infection Stated complaint: cough Time Seen by Provider: 11/15/23 21:21 Source: patient Mode of arrival: ambulatory Limitations: no limitations History of Present Illness HPI narrative: This is a 68-year-old male who presents to the ED with chief complaint of your eye symptoms including cough, congestion, body aches for the past couple of days. Reports he has had a severe cough with coughing fit today causing a pop in the chest. He reports immediate pain in the left side of the chest wall. Reports he has had a broken rib in the past and that is what it feels like today. Denies any shortness of breath, exertional chest pain, abdominal pain, nausea, vomiting or headache. Related Data Home Medications Medication Instructions Recorded Confirmed emollient combination no.71 1 ea topical BID 06/23/21 09/14/23 (Lubriderm Advanced Therapy lotion) aspirin 81 mg tablet,delayed 81 mg PO DAILY 01/04/23 09/14/23 release (Adult Aspirin Regimen) rosuvastatin 40 mg tablet 40 mg PO DAILY 02/07/23 09/14/23 cyanocobalamin (vitamin B-12) 1,000 mcg PO DAILY 02/14/23 09/14/23 1,000 mcg tablet fenofibrate nanocrystallized 145 145 mg PO DAILY 02/14/23 09/14/23 mg tablet riboflavin (vitamin B2) 400 mg 400 mg PO DAILY 10/26/23 tablet Allergies Allergy/AdvReac Type Severity Reaction Status Date / Time latex Allergy Severe Blister Verified 11/15/23 21:17 cyclobenzaprine Allergy Mild Rash Verified 11/15/23 21:17 Review of Systems Review of Systems: All systems as dictated in [facility] Past Medical History Medical History (Updated 11/16/23 @ 00:00 by Background Daemon) Abnormal fasting glucose Glucose 112 with hemoglobin A1c 5.7 on 11/22/2022. Fasting glucose 101 on 01/24/2023. Fasting glucose 98 with hemoglobin A1c 5.8 on 07/20/2023. Acute bronchitis Acute non-recurrent maxillary sinusitis Adhesive capsulitis of left shoulder Adverse drug reaction (~02/09/22) Aortic atherosclerosis At low risk for fall Bilateral chronic knee pain BMI 29.0-29.9,adult BMI 31.0-31.9,adult BMI 32.0-32.9,adult Chest pain (~01/04/23) EKG 01/05/2023 with normal sinus rhythm. stress sestamibi 02/13/2023 with no EKG changes. Nuclear scan with ejection fraction of 61% with a small apical/ inferior lateral fixed defect suggestive of prior infarction. cardiac catheterization 02/13/2023 with no coronary artery disease and ejection fraction 60%. Echocardiogram 05/11/2023 with mild diastolic dysfunction. Chronic bilateral low back pain with bilateral sciatica Chronic bilateral low back pain without sciatica Chronic depression Chronic left shoulder pain Colitis, acute Colon cancer screening COPD (chronic obstructive pulmonary disease) (03/22/21) mild obstructive airway disease with air trapping on PFT on 03/22/2021 COVID-19 (11/09/20) Depression Dyshidrotic eczema (~06/23/21) Dyspnea on exertion Echocardiogram 05/11/2023 with normal ejection fraction and mild inferior posterior hypokinesis of the left ventricle. Encounter for HCV screening test for low risk patient (11/10/22) screening for hepatitis C by house call on 11/10/2022 was negative. Encounter for prostate cancer screening PSA 0.69 on 07/20/2023. Encounter for screening for vascular disease (01/04/23) lifeline screening 01/04/2023 with normal abdominal aorta. Normal CY at 1.11 on the left and 1.16 on the right. Bone density normal. Exposure to COVID-19 virus Fatty infiltration of liver AST 15 with ALT 12 on 07/18/2022. AST 12, ALT 10 on 01/24/2023. fatty liver noted on CT of the abdomen and pelvis on 04/03/2023. GGT 13, AST 16, ALT 16 on 07/20/2023. Finger wound, simple, open X-ray of the left little finger 04/14/2023 with no foreign body. Fungal nail infection GERD with esophagitis gastritis on EGD on 11/12/2019 Hematospermia (~06/2022) Hypertension Irritable bowel syndrome with diarrhea Left hip pain Loss, sense
== END 2023-11-15 23:04 | disposition home or self-care (01) ==
PROVIDERS: Emergency Provider Physician Assistant; PCP Family Medicine
DX: J10.1 Influenza due to other identified influenza virus with other respiratory manifestations (principal); R07.89 Other chest pain; Z20.822 Contact with and (suspected) exposure to COVID-19; I70.0 Atherosclerosis of aorta; J44.9 Chronic obstructive pulmonary disease, unspecified; K58.0 Irritable bowel syndrome with diarrhea; I10 Essential (primary) hypertension; E66.9 Obesity, unspecified; Z68.33 Body mass index [BMI] 33.0-33.9, adult; E53.8 Deficiency of other specified B group vitamins; E55.9 Vitamin D deficiency, unspecified; K21.00 Gastro-esophageal reflux disease with esophagitis, without bleeding; L40.9 Psoriasis, unspecified; Z86.010 Personal history of colon polyps; Z87.440 Personal history of urinary (tract) infections; Z87.891 Personal history of nicotine dependence; Z79.82 Long term (current) use of aspirin; Z90.49 Acquired absence of other specified parts of digestive tract
CPT/HCPCS: 87637; 99283

== ENCOUNTER 2023-11-30 13:22 | Emergency (ER) | payer MEDICARE, SELFPAY ==
[2023-11-30 13:57] VITALS: BP 123/70; PULSE 66; RESP 16; TEMP 36.7; O2SAT 96
[2023-11-30 13:59] VITALS: BP 123/70; PULSE 66; RESP 16; TEMP 36.7; O2SAT 96
--- NOTE | 2023-11-30 14:39 | ED.URI ---
HPI - URI/Sore Throat General Chief Complaint: Upper Respiratory Infection Stated Complaint: drainage in throat Time Seen by Provider: 11/30/23 14:40 Source: patient Mode of arrival: ambulatory Limitations: no limitations History of Present Illness HPI Narrative: 68-year-old male presents with complaint of sinus congestion, postnasal drainage, runny nose, sinus headaches, intermittent cough for the past 3 weeks. Patient reports symptoms started when he was 1st diagnosed with influenza and did not improve. No chest pain or shortness of breath. Not taking any [id number] medications to treat his symptoms. Afebrile. All systems reviewed and negative except as noted above. Related Data Home Medications Medication Instructions Recorded Confirmed emollient combination no.71 1 ea topical BID 06/23/21 11/30/23 (Lubriderm Advanced Therapy lotion) aspirin 81 mg tablet,delayed 81 mg PO DAILY 01/04/23 11/30/23 release (Adult Aspirin Regimen) rosuvastatin 40 mg tablet 40 mg PO DAILY 02/07/23 11/30/23 cyanocobalamin (vitamin B-12) 1,000 mcg PO DAILY 02/14/23 11/30/23 1,000 mcg tablet fenofibrate nanocrystallized 145 145 mg PO DAILY 02/14/23 11/30/23 mg tablet riboflavin (vitamin B2) 400 mg 400 mg PO DAILY 10/26/23 11/30/23 tablet cetirizine 10 mg tablet (Zyrtec) 10 mg PO BID PRN allergy symptoms 11/25/23 11/30/23 finasteride 5 mg tablet 5 mg PO DAILY 11/30/23 11/30/23 Allergies Allergy/AdvReac Type Severity Reaction Status Date / Time cefdinir Allergy Severe Swelling Verified 11/30/23 14:50 latex Allergy Severe Blister Verified 11/30/23 13:48 cyclobenzaprine Allergy Mild Rash Verified 11/30/23 13:48 omnocef Allergy Intermediate Swelling Uncoded 11/30/23 13:48 of Lip/Tongue/Throat Review of Systems Review of Systems: CONSTITUTIONAL: Denies fever, chills, or sweats. EYES: Denies visual changes, redness, or discharge. ENT: Reports rhinorrhea, congestion, sore throat. Denies otalgia. CARDIOVASCULAR: Denies chest pain, palpitations, or edema. RESPIRATORY: reports cough. Denies dyspnea. GASTROINTESTINAL: Denies abdominal pain, nausea, vomiting, or diarrhea. GENITOURINARY: Denies dysuria or hematuria. SKIN: Denies rash or itching. MUSCULOSKELETAL: Denies back pain, joint pain, or myalgia. NEUROLOGIC: reports sinus headache. Denies numbness, or weakness. PSYCHIATRIC: Denies anxiety or depression. All other systems reviewed are negative, except as documented in HPI. [facility] Past Medical History Medical History (Updated 11/30/23 @ 14:47 by Ivy Verduzco NP) Abnormal fasting glucose Glucose 112 with hemoglobin A1c 5.7 on 11/22/2022. Fasting glucose 101 on 01/24/2023. Fasting glucose 98 with hemoglobin A1c 5.8 on 07/20/2023. Acute bronchitis Acute non-recurrent maxillary sinusitis Adhesive capsulitis of left shoulder Adverse drug reaction (~02/09/22) Allergic drug reaction (11/24/23) Omnicef Aortic atherosclerosis At low risk for fall Bilateral chronic knee pain BMI 29.0-29.9,adult BMI 31.0-31.9,adult BMI 32.0-32.9,adult Chest pain (~01/04/23) EKG 01/05/2023 with normal sinus rhythm. stress sestamibi 02/13/2023 with no EKG changes. Nuclear scan with ejection fraction of 61% with a small apical/ inferior lateral fixed defect suggestive of prior infarction. cardiac catheterization 02/13/2023 with no coronary artery disease and ejection fraction 60%. Echocardiogram 05/11/2023 with mild diastolic dysfunction. Chronic bilateral low back pain with bilateral sciatica Chronic bilateral low back pain without sciatica Chronic depression Chronic left shoulder pain Colitis, acute Colon cancer screening COPD (chronic obstructive pulmonary disease) (03/22/21) mild obstructive airway disease with air trapping on PFT on 03/22/2021 COVID-19 (11/09/20) Depression Dyshidrotic eczema (~06/23/21) Dyspnea on exertion Echocardiogram 05/11/2023 with normal ejection fraction and mild inferior posterior
== END 2023-11-30 14:52 | disposition home or self-care (01) ==
PROVIDERS: Emergency Provider Nurse Practitioner Family; PCP Family Medicine
DX: J01.90 Acute sinusitis, unspecified (principal); Z87.891 Personal history of nicotine dependence; I70.0 Atherosclerosis of aorta; J44.9 Chronic obstructive pulmonary disease, unspecified; Z86.16 Personal history of COVID-19; K76.0 Fatty (change of) liver, not elsewhere classified; K21.00 Gastro-esophageal reflux disease with esophagitis, without bleeding; I10 Essential (primary) hypertension; E66.9 Obesity, unspecified; Z68.32 Body mass index [BMI] 32.0-32.9, adult; E53.8 Deficiency of other specified B group vitamins
CPT/HCPCS: 99213; G0463

== ENCOUNTER 2024-02-09 08:32 | Outpatient (CLI) | payer MEDICARE, SELFPAY ==
[2024-02-09 09:10] LABS: Alanine Aminotransferase 20 U/L (6-50); Albumin Level 4.1 g/dL (3.5-5.1); Alkaline Phosphatase 65 U/L (38-126); Anion Gap 4 mmol/L (8-16); Aspartate Amino Transferase 22 U/L (17-59); Bilirubin,Total 0.8 mg/dL (0.2-1.3); Blood Urea Nitrogen 18 mg/dL (9-20); Calcium 9.2 mg/dL (8.4-10.2); Carbon Dioxide 29 mmol/L (22-30); Chloride 105 mmol/L (98-107); Cholesterol 140 mg/dL (0-200); Estimated Glomerular Filt Rate > 60; Glucose 106 mg/dL (65-110); HDL Direct 53 mg/dL; Potassium 4.4 mmol/L (3.4-5.0); Sodium 138 mmol/L (137-145); Triglycerides 164 mg/dL (<150)
[2024-02-09 09:12] LABS: Hemoglobin A1C 5.9 % (<5.7)
[2024-02-09 09:21] LABS: LDL Cholesterol Direct 72 mg/dL
== END 2024-02-09 08:33 | disposition home or self-care (01) ==
PROVIDERS: PCP Family Medicine; Visit Provider Family Medicine
DX: E78.2 Mixed hyperlipidemia (principal); R73.01 Impaired fasting glucose
CPT/HCPCS: 36415; 80048; 80061; 80076; 83036

== ENCOUNTER 2024-06-20 13:51 | Outpatient (CLI) | payer MEDICARE, SELFPAY ==
--- NOTE | ~2024-06-20 | CT_ITS ---
CT Scan of the Chest without Contrast: Clinical Indication: Lung cancer screening, nicotine dependence Technique: Contiguous sections were acquired throughout the chest without intravenous contrast. Dose reduction technique was used on this scan by utilizing automated exposure control and iterative recon struction technique. The dose-length product (DLP) was 171.46 mGy-cm. Findings: There is no evidence of any significant mediastinal, hilar or axillary lymphadenopathy. The mediastin al soft tissues appear normal. There is no evidence of pleural or pericardial effusion. Moderate emphysema present. 5 mm left upper lobe pulmonary nodule present (axial image 34). There is additional 4 mm left upper lobe pulmonary nodule peripherally (axial image 41). Images through the upper abdomen reveal no abnormalities. Impression: Lung RADS 2: Benign appearance. 12 month follow-up screening CT advised. Reviewed, dictated and finalized at [facility]. Impression: Lung RADS 2: Benign appearance. 12 month follow-up screening CT advised.
--- NOTE | 2024-06-28 13:39 | P.PCNPFT_ITS ---
PFT Procedure Performed PFT Procedure Performed Spirometry with Pre/Post Bronchodilator Plethysmography (Lung Vol) Diffusing Cap (DLCO) Flow Vol Loop PFT Interpretation DOS: 06/20/2024 REQUESTING: Althea Lawrence PA-C REASON FOR TESTING: COPD PULMONARY FUNCTION TESTS Results are reliable and reproducible. Repeatability of spirometry FEV1 maneuver pre and post bronchodilator is Grade A. Spirometry: The pre-bronchodilator FEV1 is 2.42 L, 79%, normal. The pre- bronchodilator FVC is 3.84 L, 97%, normal. The FEV1/FVC ratio is 63%, reduced. After bronchodilator, the FEV1 is 2.48 L, 82%, +3%. The FVC after bronchodilator is 3.90, 99%, +2%. The FEV1/FVC ratio is 64%, slightly reduced. Lung volumes: The total lung capacity is 8.69 L, 136, elevated, mild hyperinflation. The residual volume is 4.84 L, 220%, severe air trapping. The RV/TLC is 56, elevated, consistent with air trapping. Normal airway resistance. Diffusion: DLCO is 19.3, 75%, normal. The DLCO/VA is 3.57, 85%, normal. Flow volume loop: The flow volume loop is overall normal. IMPRESSION: This study shows a mild obstructive ventilatory impairment, mild hyperinflation with severe air trapping and normal diffusion. Lack of response to bronchodilator should not preclude use if clinically indicated. A prior PFT from 03/22/2021 shows similar results. The FEV1 was 2.63 L, 75%, the FVC was 4.25 L, 94%, both volumes were normal, and the FEV1/FVC ratio was 62% with insignificant results after bronchodilator; mild hyperinflation, air trapping, normal diffusion. Brisa Joe MD
--- NOTE | 2024-06-28 13:54 | WPDSIXMINUTE ---
Six Minute Walk Procedure Procedure Performed Pulmonary Stress Test (6 min walk) Six Minute Walk Six Minute Walk: DOS: 06/20/2024 REQUESTING: Althea Lawrence PA-C REASON FOR TESTING: COPD SIX MINUTE WALK This test was conducted per ATS guidelines. The initial saturation was 95%, and initial heart rate was 65 beats per minute. The patient walked without stopping, completing 1400 ft/426.7 meters. The saturation at the end of testing was 94%, and the heart rate was 95 beats per minute. The minimum saturation was 93%, maximum pulse 104 beats per minute. IMPRESSION: This is a normal study. The patient did not require supplemental oxygen with exertion. Brisa Joe MD
== END 2024-06-20 13:52 | disposition home or self-care (01) ==
LOC: ANHPFT 13:52
PROVIDERS: PCP Family Medicine; Visit Provider Physician Assistant
DX: Z12.2 Encounter for screening for malignant neoplasm of respiratory organs (principal); J44.9 Chronic obstructive pulmonary disease, unspecified; Z87.891 Personal history of nicotine dependence
CPT/HCPCS: 71271; 94060; 94726; 94729

== ENCOUNTER 2025-02-27 09:30 | Outpatient (CLI) | payer MEDICARE, SELFPAY ==
--- OUTSIDE RECORDS SUMMARY | 2025-02-27 10:02 | XMS_ITS | Encounter Summary ---
Author Organization [facility] Healthcare Address [address] [place] [address] Care Team Providers Care Coiled Tubing Operator Name Role Phone Juan F Esparza MD Primary Care Provider [phone] Reason for Visit * Cardiology (Routine) - Closed Specialty Diagnoses / Procedures Referred By Valeria vallejo Referred To Contact Cardiology Diagnoses Episodic weakness Near syncope Procedures Transthoracic Echo (TTE) Complete W Doppler/CF Tamera Fang NP [address] [address] Phone: tel: fax: [facility] Referral ID Status Reason Start Date Expiration Date Visits Re quested Visits Authorized [id number] Closed 02/06/2025 03/08/2026 1 1 Encounter Details Date Type Department Care Team (Latest Contact Info) Description 02/27/2025 8:15 AM CDT Ancillary Procedure [facility] Cardiology [address] [place] [phone] Episodic weakness; Near syncope Social History Tobacco Use Types Packs/Day Years Used Date Smoking Tobacco: Former Cigarettes Q uit: 01/11/2017 Smokeless Tobacco: Never AUDIT-C Answer Date Recorded Q1: How often do you have a drink containing alc ohol? 2-4 times a month 03/16/2023 Q2: How many drinks containi ng alcohol do you have on a typical day when you are drinking? 3 or 4 03/16/2023 Q3: How often do you have si x or more drinks on one occasion? Never 03/16/2023 Personal Safety Answer Date Recorded Have you ever been in or are you currently in a harmful physical or emotional relationship or is someone making you feel afraid or unsafe? Denies 04/13/2023 Sex and Gender Information Value Date Recorded Sex Assigned at Not on file Legal Sex Male 8:01 PM [employer] Gender Identity Male 01/24/2023 10:35 AM [employer] Sexual Orientation Not on file documented as of this encounter Plan of Treatment Pending Results Name Type Priority Associated Diagnoses Date/Time Transthoracic Echo (TTE) Complete W Doppler/CF Echocardiography Routine Episodic weakness Near syncope 02/27/2025 9:04 AM CDT documented as of this encounter Visit Diagnoses Diagnosis Episodic weakness Near syncope documented in this encounter Care Teams Coiled Tubing Operator Relationship Specialty Start Date End Date Juan F Esparza MD [address] [address] PCP - General Family Medicine 02/13/23 documented as of this encounter
--- OUTSIDE RECORDS SUMMARY | 2025-02-27 10:02 | XMS_ITS | Encounter Summary ---
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 * Telephone Encounter - Sowmya Munoz - 02/14/2025 12:01 PM CDT Pt requesting call to discuss monitor results. Contact: documented in this encounter Plan of Treatment Not on file documented as of this encounter Visit Diagnoses Not on filedocumented in this encounter Care Teams Site Lead Relationship Specialty Start Date End Date Juan F Esparza MD [address] [address] PCP - General Family Medicine 02/13/23 documented as of this encounter
--- OUTSIDE RECORDS SUMMARY | 2025-02-27 10:02 | XMS_ITS | Clinical Summary ---
Author Organization [facility] Address [address] [place] [phone] Care Team Providers Care Coloring Room Man Name Role Phone Juan F Esparza MD Primary Care Provider [phone] Allergies Active Allergy Reactions Criticality Noted Date Comments Latex Rash Medium 01/24/[address] (PROTONIX) 40 mg EC tablet Take 1 tablet (40 mg total) by mouth daily 3 Active tamsulosin (FLOMAX) 0.4 mg extended release capsule Administer 1 capsule (0.4 mg total) per feeding tube 3 Active albuterol HFA (PROVENTIL HFA,VENTOLIN HFA,PROAIR HFA) 90 mcg/actuation inhaler Inhale 2 puffs every 4 (four) hours as needed 2 Active meloxicam (MOBIC) 15 mg tablet Take 1 tablet (15 mg total) by mouth daily 3 Active tiZANidine (ZANAFLEX) 2 mg tablet Take 1 tablet (2 mg total) by mouth every 8 (eight) hours as needed 2 Active fluticasone propionate (FLONASE) 50 mcg/actuation nasal spray Administer 1 spray into each nostril daily 3 Active cyanocobalamin (Vitamin B-12) 1,000 mcg tabletIndicatio ns:Prevention of Vitamin B12 Deficiency Take 1 tablet (1,000 mcg total) by mouth daily Active HYDROcodone-elizabeth taminophen (NORCO) 5-325 mg per tabletIndicatio ns:Pain Take 1 tablet by mouth every 6 (six) hours as needed Active triamcinolone (KENALOG) 0.5 % cream Apply 1 application topically as needed 3 Active sulfamethoxazol e-trimethoprim (BACTRIM DS) 800-160 mg per tablet Take 1 tablet (160 mg of trimethoprim total) by mouth 2 (two) times a day Active finasteride (PROSCAR) 5 mg tablet Take 1 tablet (5 mg total) by mouth daily Active rizatriptan (MAXALT) 5 mg tablet Take 1 tablet (5 mg total) by mouth once as needed Active lisinopriL (PRINIVIL,ZESTR IL) 40 mg tablet Take 1 tablet (40 mg total) by mouth daily 90 tablet 2 4 Active rosuvastatin (CRESTOR) 40 mg tablet Take 1 tablet (40 mg total) by mouth daily 90 tablet 2 4 Active Active Problems Problem Noted Date Diagnosed Date Angina pectoris 02/20/2023 Overview (02/20/2023): Added automatically from request for surgery [id number] Abnormal stress test 02/20/2023 Overview (02/20/2023): Added automatically from request for surgery [id number] Encounters Date Type Department Care Team Description 02/27/2025 8:15 AM CDT Ancillary Procedure [facility] Cardiology [address] [place] [phone] Episodic weakness; Near syncope 02/18/2025 Telephone [facility] [address] [place] [phone] Leena Fang NP 02/17/2025 Results Follow-Up [facility] [address] [place] [phone] Leena Fang NP 02/14/2025 Telephone [facility]iology [address] [place] [phone] Isaias Ashraf MD 02/06/2025 10:30 AM CDT Ancillary Procedure [facility] Cardiology [address] [place] [address] Episodic weakness; Near syncope 02/06/2025 9:00 AM CDT Office Visit [facility]iology [address] [place] [address] Leena Fang NP Episodic weakness (Primary Dx); Near syncope; MISHA (obstructive sleep apnea) 01/31/2025 Telephone [facility]iology [address] [place] [address] Isaias Ashraf MD from Last 3 Months Surgical History Surgery Date Site/Laterality Comments SPINE SURGERY CHOLECYSTECTOMY HERNIA REPAIR TONSILLECTOMY Medical History Medical History Date Comments Hypertension Abnormal stress test Chest pain Asthma GERD (gastroesophageal reflux disease) Lung disease Family History Medical History Relation Name Comments Diabetes Brother Hypertension Brother Diabetes Mother Hypertension Mother Stroke Paternal Grandmother Relation Name Status Comments Brother Father (Age 52) Mother (Age 86) Paternal Grandmother Social History Tobacco Use Types Packs/Day Years Used Date Smoking Tobacco: Former Cigarettes Q uit: 01/11/2017 Smokeless Tobacco: Never Tobacco Cessation:Counseling Given: Not Answered AUDIT-C Answer Date Recorded Q1: How often [...] on file 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 Gender Identity Male 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 Sexual Orientation Not on file Obstetrics History Last Filed Vital Signs Vital Sign Reading Time Taken Comments Blood Pressure 118/80 02/06/2025 8:57 AM CDT Pulse 68 02/06/2025 8:53 AM CDT Temperature 36.7 C (98 F) 04/13/2023 9:22 AM CDT Respiratory Rate 12 04/13/2023 11:35 AM CDT Oxygen Saturation 94% 02/06/2025 8:53 AM CDT Inhaled Oxygen Concentration - - Weight 107.5 kg (237 lb) 02/06/2025 8:53 AM CDT Height 180.3 cm (5' 11 ) 02/06/2025 8:53 AM CDT Body Mass Index 33.05 02/06/2025 8:53 AM CDT Plan of Treatment Health Maintenance Due Date Last Done Comments Colon Cancer Screening-Colonoscopy 1955 Depression Screening 1955 Hepatitis C Screening 1955 Prostate Cancer Screening-PSA 1957 DTaP/Tdap/Td Vaccine (1 - Tdap) 1968 Hepatitis B Screening 1975 Pneumococcal vaccine 65+ (1 of 1 - PCV) 2007 Zoster Vaccine (2 of 3) 10/24/2017 08/29/2017 Abdominal Aortic Aneurysm (A AA) Screen 2022 Well Visit 65+ 2022 Fall Risk Assessment 03/16/2024 03/16/2023 Covid-19 Vaccine (4 - 2023-2 5 season) 2024 11/21/2021, 03/06/2021, 02/14/2021 Influenza Vaccine (Season Ended) 2025 09/05/2019, 09/13/2018, 08/29/2017, Additional history exists Medical Devices Implanted Type Area Sales And In Home Delivery Specialist Device Identifier Shelf Expiration Date Model / Serial / Lot [employer] Device Closure Vascade Od5 Fr Femoral Artery [id number] - [id number] Implanted:Qty: 1 on 03/16/2023 by Isaias Ashraf MD at [facility] [employer] 12/19/2024 [id number]-0 [id number] / / [id number] Procedures Procedure Name Priority Date/Time Associated Diagnosis Comments MCT - MOBILE CARDIAC TELEMETRY EVENT MONITOR Routine 02/06/2025 9:57 AM CDT Episodic weakness Near syncope from Last 3 Months Results * MCT Mobile Cardiac Telemetry Event Monitor (02/06/2025 9:57 AM CDT) Anatomical Region Laterality Modality Electrocardiogra phy Narrative 02/17/2025 1:47 PM CDT AMBULATORY CLERICAL ADJUSTER REPORT Patient Name: Jax Fajardo Date of : 1955 Requesting Physician: leena Fang Date of interpretation: 02/17/25 Type of monitor : 7 day mobile cardiac outpatient telemetry Date of the study/Enrollment period: February 06 till February 12, 2025 Indication: Weakness, syncope and collapse Quality of the study: Good Interpretation: Average heart rate was 79 beats per minute with a minimum heart rate 49 beats per minute and maximum heart rate 155 beats per minute. [place] of PVCs less than 1% and burden of supraventricular ectopic contractions was 3%. No significant pauses above 3 seconds. patient reported symptoms on 3 occasions, couple occasions it was an accidental push and corresponded to sinus rhythm with heart rate 67-84 beats per minute and 3rd episode patient complained of feeling tired and corresponded to sinus rhythm with PACs. No evidence of atrial fibrillation, supraventricular tachycardia, ventricular tachycardia. Conclusions: Rare PVCs . More frequent PACs. Voice recognition software was used to complete this document, therefore, material mover variances may occur. Nidia Sauceda MD, [facility] 02/17/25 Leena Fang NP [facility] Final Result from Last 3 Months Insurance [employer] [address] MEDICARE O MEDICARE HMO HUMANA MEDICARE HMO Care Teams Coloring Room Man Relationship Specialty Start Date End Date Juan F Esparza MD [address] [address] PCP - General Family Medicine 02/13/23
--- OUTSIDE RECORDS SUMMARY | 2025-02-27 10:02 | XMS_ITS | CONTINUITY OF CARE DOCUMENT ---
Author Name duncanlillycelina Address Unknown Organization [facility] Address [address] [place] [address] Phone [phone] Care Team Providers Care Secondary School Principal Name Role Phone Mark Horton MD Unavailable [phone] JANIA ALBERTS, MARY Parr Unavailable DENEEN PENA MD Unavailable INSURANCE PROVIDERS Payer name Policy type / Coverage type Carey red libertarian ID [id number] insurance [employer] [id number]
--- OUTSIDE RECORDS SUMMARY | 2025-02-27 10:02 | XMS_ITS | Data Portability ---
Author Organization [facility] (11[facility] Address [address] [facility] [address] [place] [address] Care Team Providers Care Die Tester Name Role Phone SHAWN FIELD Referring Provider Assessment No assessment recorded. Plan of Treatment Reminders Order Date Submit Date Provider Last Modified By Organization Details Last Modified Time Details Appointments None record ed. Lab None record ed. Referral None record ed. Procedures None record ed. Surgeries None record ed. Imaging None record ed. Medication Orders None record ed. Patient TargetsNo targets recorded. Patient InstructionsNo instructions recorded. Reason for Referral None Reported. Procedures Surgical History Date Name Laterality Status Provider Name and Address Organization Details Recorded Time 07/31/2024 Sleep Study completed Keith Chung [facility]/[employer] 08/01/20 24 11:10:10 Imaging Results None recorded. Procedure Notes None recorded. Medical Equipment None Reported. Medications Name Sig Start Date Stop Date Status Note LastModified by Organization Details LastModified Time tizanidine 2 mg tablet active Not Available Not Available Not Available triamcinolone acetonide 0.5 % topical cream active Not Available Not Availabl e Not Available azithromycin 250 mg tablet active Not Available Not Availabl e Not Available meloxicam 15 mg tablet active Not Available Not Available Not Available prednisone 20 mg tablet active Not Available Not Available No t Available acetaminophen 300 mg-codeine 30 mg tablet active Not Available Not Available Not Available amoxicillin 875 mg tablet active Not Available Not Available No t Available tamsulosin 0.4 mg capsule active Not Available Not Available N ot Available pantoprazole 40 mg tablet,delayed release active Not Available Not Available Not Available metoprolol succinate ER 25 mg tablet,extended release 24 hr active Not Available Not Availabl e Not Available epinephrine 0.3 mg/0.3 mL injection, auto-injector active Not Available Not Availabl e Not Available lisinopril 40 mg tablet active Not Available Not Available No t Available cefdinir 300 mg capsule active Not Available Not Available Not Available fluticasone propionate 50 mcg/actuation nasal spray,suspensio n active Not Available Not Available Not Available doxycycline hyclate 100 mg tablet active Not Available Not Available Not Available finasteride 5 mg tablet active Not Available Not Available No t Available rizatriptan 5 mg tablet active Not Available Not Available No t Available rosuvastatin 40 mg tablet active Not Available Not Available No t Available eszopiclone 2 mg tablet active Not Available Not Available No t Available tizanidine 2 mg capsule active Not Available Not Available Not Available Symbicort 160 mcg-4.5 mcg/actuation HFA aerosol inhaler active Not Available Not Available Not Available Vitals Date Recorded Body height Body mass index (BMI) Body weight Provider Name and Address Organization Details Last Updated DateTime 07/31/2024 177.8 cm 33.1 kg/m2 770362.84 g Keith Chung [place] [facility] 08/01/2024 10:59:56 Social History None recorded. Functional Status None recorded. Mental Status None recorded. Family History Nothing Reported. Medical History No medical history recorded. Past Encounters Encounter ID Performer Location Encounter Start Date Encounter Closed Date Diagnosis/Indication Diagnosis SNOMED-CT Code Diagnosis ICD10 Code Diagnosis Note [id number] Thang Marcelino MD [facility] [id number] [phone]) [phone] [facility] [address] [place] [address] 07/31/2024 20:48:52 08/01/2024 10:58:29 Obstructive sleep apnea of adult 0488719849 103 G47.33 Health Concerns Section Related Observation LastModified by Organization Detai ls LastModified Time None Recorded Concern Status LastModified by Organization Details LastModified Time None Recorded Advance Directives Directive None Recorded Payers Encounter Date Sequence Insurance Name Policy Number Policy Coyne Covered Member ID Coyne Member ID Guarantor Name 07/31/2024 1 [employer] (MEDICARE REPLACEMENT/A DVANTAGE - HMO) Jax Fajardo [id number] Jax Fajardo
--- OUTSIDE RECORDS SUMMARY | 2025-02-27 10:02 | XMS_ITS | Referral Summary ---
Author Organization [facility] Address [address] [place] [address] Care Team Providers Care Burlap Bag Sewer Name Role Phone Juan F Esparza MD Primary Care Provider [phone] Encounters Date Type Department Care Team Description 02/27/2025 8:15 AM CDT Ancillary Procedure [facility] Medical [facility] Cardiology [address] [place] [address] [address] [place] [phone] Episodic weakness; Near syncope 02/18/2025 Telephone [facility] Cardiology [address] [place] [address] [address] [place] [phone] Leena Fang NP 02/17/2025 Results Follow-Up [facility] Cardiology [address] [place] [address] [place] [phone] Leena Fang NP 02/14/2025 Telephone [facility] Cardiology [address] [place] [address] [address] [place] [phone] Isaias Ashraf MD 02/06/2025 10:30 AM CDT Ancillary Procedure [facility] Cardiology [address] [place] [address] [address] [place] [phone] Episodic weakness; Near syncope 02/06/2025 9:00 AM CDT Office Visit [facility] Cardiology [address] [place] [address] [address] [place] [phone] Leena Fang NP Episodic weakness (Primary Dx); Near syncope; MISHA (obstructive sleep apnea) 01/31/2025 Telephone [facility] Cardiology [address] [place] [address] Isaias Ashraf MD from Last 3 Months Allergies Active Allergy Reactions Criticality Noted Date [...] (02/20/2023): Added automatically from request for surgery [id number] Abnormal stress test 02/20/2023 Overview (02/20/2023): Added automatically from request for surgery [id number] Social History Tobacco Use Types Packs/Day Years [...] on file 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 Gender Identity Male 01/24/2023 10:35 AM 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 Sexual Orientation Not on file Last Filed Vital Signs Vital Sign Reading [...] 02/06/2025 8:53 AM CDT Plan of Treatment Not on file Medical Devices Implanted Type Area Room Service Supervisor Device Identifier Shelf Expiration Date Model / Serial / Lot Vapotherm Device Closure Vascade Od5 Fr Femoral Artery [id number] - [id number] Implanted:Qty: 1 on 03/16/2023 by Isaias Ashraf MD at [facility] [employer] [facility] 12/19/2024 700-500DX-0 [id number] / / [id number] Procedures Procedure Name Priority Date/Time Associated Diagnosis Comments MCT - MOBILE CARDIAC TELEMETRY EVENT MONITOR Routine 02/06/2025 9:57 AM CDT Episodic weakness Near syncope from Last 3 Months Results * MCT Mobile Cardiac Telemetry Event Monitor (02/06/2025 9:57 AM CDT) Anatomical Region Laterality Modality Electrocardiogra phy Narrative 02/17/2025 1:47 PM CDT AMBULATORY SENIOR PLANNING MANAGER REPORT Patient Name: Jax Fajardo Date of [...] maximum heart rate 155 beats per minute. [place] of PVCs less than 1% and burden [...] was used to complete this document, therefore, latin teacher variances may occur. Nidia Sauceda MD, [facility] 02/17/25 us Leena Fang NP CV [facility] Final Result from Last 3 Months Insurance COMMERCIAL GENERIC [employer] MED[place]ARE [place] [address] [facility] MEDICARE HMO Care Teams Burlap Bag Sewer Relationship Specialty Start Date End Date Juan F Esparza MD [address] [id number] PCP - General Family Medicine 02/13/23
[2025-02-27 10:37] LABS: Basophils Absolute Auto 0.1 K/mm3 (0.0-0.1); Basophils Percent Auto 1.2 % (0.2-1.2); Eosinophils Absolute Auto 0.2 K/mm3 (0-0.3); Eosinophils Percent Auto 2.9 % (0-4.4); Hematocrit 44.1 % (42.0-52.0); Hemoglobin 14.8 g/dL (14.0-18.0); Immature Granulocyte Absolute 0.01 K/mm3 (0.00-0.031); Immature Granulocyte Percent A 0.2 % (0-0.5); Lymphocytes Absolute Auto 2.04 K/mm3 (0.9-3.2); Lymphocytes Percent Auto 31.1 % (18.3-44.2); Mean Corpuscular HGB Conc 33.6 g/dl (32-36); Mean Corpuscular Hemoglobin 29.1 pg (26-34); Mean Corpuscular Volume 86.8 fl (80-100); Mean Platelet Volume 10.2 fl (7.4-10.4); Monocytes Absolute Auto 0.6 K/mm3 (0.1-0.6); Neutrophils Absolute Auto 3.6 K/mm3 (1.3-6.7); Neutrophils Percent Auto 55.6 % (45.5-73.1); Platelet Count Result 242 k/mm3 (150-375); Red Blood Count 5.08 M/mm3 (4.6-6.20); White Blood Count 6.6 K/mm3 (4.5-10.0)
== END 2025-02-27 09:31 | disposition home or self-care (01) ==
PROVIDERS: PCP Family Medicine; Visit Provider Internal Medicine Cardiovascular Disease
DX: R53.1 Weakness (principal); R55 Syncope and collapse
CPT/HCPCS: 36415; 85025

== ENCOUNTER 2025-05-03 05:33 | Emergency (ER) | payer MEDICARE, SELFPAY ==
--- NOTE | ~2025-05-03 | CT_ITS ---
EXAMINATION: CT abdomen pelvis w con DATE: 05/03/2025 06:58 INDICATION: Abdominal pain TECHNIQUE: Computed tomography (CT) of the abdomen and pelvis was performed with 100 mL Omnipaque-350 intravenous contrast. Automated exposure control and iterative reconstruction technique were employe d. The dose-length product was 1245.92 mGy-cm. COMPARISON: 04/03/2023 FINDINGS: Mild dependent atelectasis in the bilateral lower lobes. Heart size is normal. No pericardial or pleu ral effusion. Small sliding-type hiatal hernia. Cholecystectomy clips at the gallbladder fossa. Mild diffuse hepatic steatosis. Chronic 2.1 x 1.2 cm avidly enhancing lesion in the right hepatic lobe wit hout change since 02/15/2016 consistent with a hemangioma. A few small splenic calcifications consiste nt with old granulomatous disease. Pancreas, bilateral adrenal glands and kidneys are normal. There i s bladder is normal. Prostatomegaly. Bowels including the appendix are normal. Mild scattered degener ative skeletal changes in the spine and pelvis. IMPRESSION: 1. No acute intra-abdominal/pelvic process. 2. Small sliding-type hiatal hernia. 3. Prostatomegaly. Reviewed, dictated and finalized at location A.
--- OUTSIDE RECORDS SUMMARY | 2025-05-03 05:36 | XMS_ITS | Data Portability ---
Author Organization [facility] (11[facility] Address [address] [facility] [address] [place] [address] Care Team Providers Care Rubber Block Layer Name Role Phone SHAWN FIELD Referring Provider [...] Time 07/31/2024 Sleep Study completed Keith Chung [facility] 08/01/20 24 11:10:10 Imaging Results None recorded. [...] Updated DateTime 07/31/2024 177.8 cm 33.1 kg/m2 264639.84 g Keith Chung [place] [facility] 08/01/2024 10:59:56 Social History None recorded. Functional Status None recorded. Mental Status None recorded. Family History Nothing Reported. Medical History No medical history recorded. Past Encounters Encounter ID Performer Location Encounter Start Date Encounter Closed Date Diagnosis/Indication Diagnosis SNOMED-CT Code Diagnosis ICD10 Code Diagnosis Note [id number] [facility] [place], [facility] [phone]) [phone] [place] [address] 07/31/2024 20:48:52 08/01/2024 10:58:29 Obstructive sleep apnea of adult 8698513232 103 G47.33 Health Concerns Section Related Observation LastModified by Organization Detai ls LastModified Time None Recorded Concern Status LastModified by Organization Details LastModified Time None Recorded Advance Directives Directive None Recorded Payers Insurance Date Sequence Insurance Name Policy Number Policy Coyne Covered Member ID Coyne Member ID Guarantor Name 08/01/2024 1 [employer] (MEDICARE REPLACEMENT/A DVANTAGE - HMO) Jax Fajardo [id number] Jax Fajardo
--- OUTSIDE RECORDS SUMMARY | 2025-05-03 05:36 | XMS_ITS | Clinical Summary ---
Author Organization [facility] Address [address] [place] [phone] Care Team Providers Care Mold Setter Name Role Phone Juan F Esparza MD Primary Care Provider [phone] Allergies Active Allergy Reactions Criticality Noted Date [...] mouth daily 90 tablet 2 4 Active azelastine (ASTELIN) 137 mcg (0.1 %) nasal spray INSTILL 1 SPRAY INTO EACH NOSTRIL EVERY 12 HOURS 5 Active EPINEPHrine 0.3 mg/0.3 mL auto-injection syringe Active dilTIAZem CD/XR/XT (CARDIZEM CD,DILACOR XR) 120 mg 24 hr capsule Take 1 capsule (120 mg total) by mouth daily 30 capsule 11 5 03/18/20 26 Active Active Problems Problem Noted Date Diagnosed Date Angina pectoris 02/20/2023 Overview (02/20/2023): Added automatically from request for surgery [id number] Abnormal stress test 02/20/2023 Overview (02/20/2023): Added automatically from request for surgery [id number] Encounters Date Type Department Care Team Description 03/18/2025 9:30 AM CDT Office Visit [facility] Cardiology [address] [place] [phone] Isaias Ashraf MD Atypical chest pain (Primary Dx); Palpitations; PAC (premature atrial contraction); Essential hypertension; MISHA on CPAP; Lipid screening 03/04/2025 Results Follow-Up [facility] Cardiology [address] [place] [address] [place] [phone] Leena Arana NP CBC with auto differential 02/27/2025 8:15 AM CDT Ancillary Procedure [facility] Cardiology [address] [place] [address] [place] [phone] Episodic weakness; Near syncope 02/18/2025 Telephone [place] [address] [place] [phone] Leena Arana NP 02/17/2025 Results Follow-Up [place] [address] [place] [phone] Leena Arana NP [facility] Mobile Cardiac Telemetry Event Monitor, Transthoracic Echo (TTE) Complete W Doppler/CF 02/14/2025 Telephone [place] [address] [place] [phone] Isaias Ashraf MD 02/06/2025 10:30 AM CDT Ancillary Procedure [place] [address] [place] [phone] Episodic weakness; Near syncope 02/06/2025 9:00 AM CDT Office Visit [place] [address] [place] [phone] Leena Arana NP Episodic weakness (Primary Dx); Near syncope; MISHA (obstructive sleep apnea) 01/31/2025 Telephone [place] [address] [place] [phone] Isaias Ashraf MD from Last 3 Months [...] on file 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] AA) Screen 2022 Well Visit 65+ 2022 Covid-19 Vaccine (4 - 2024-2 5 season) 2024 11/21/2021, 03/06/2021, 02/14/2021 Influenza Vaccine (Season Ended) 2025 09/05/2019, 09/13/2018, 08/29/2017, Additional history exists Fall Risk Assessment 03/18/2026 03/18/2025, 03/16/20 23 Medical Devices Implanted Type Area Log Truck Driver Device Identifier Shelf Expiration Date Model / Serial / Lot [facility] Device Closure Vascade Od5 Fr Femoral Artery [id number] - [id number] Implanted:Qty: 1 on 03/16/2023 by Isaias Ashraf MD at [facility] 12/19/2024 [id number] / / [id number] Procedures Procedure Name Priority Date/Time Associated Diagnosis Comments POCT LIPID PANEL Routine 03/18/2025 9:10 AM CDT Lipid screening TRANSTHORACIC ECHO (TTE) COMPLETE W DOPPLER/CF WO CONTRAST Routine 02/27/2025 9:04 AM CDT Episodic weakness Near syncope CBC WITH AUTO DIFFERENTIAL Routine 02/27/2025 Episodic weakness Near syncope MCT - MOBILE CARDIAC TELEMETRY EVENT MONITOR Routine 02/06/2025 9:57 AM CDT Episodic weakness Near syncope from Last 3 Months Results * POCT lipid panel (03/18/2025 9:10 AM CDT) Cholesterol, POC 124 mg/dL HDL, POC 34 mg/dL Triglycerides, POC 175 mg/dL LDL Cholesterol POC 55 mg/dL Chol/HDL Ratio, POC 3.6 Non-HDL Cholesterol, POC 90 mg/dL Cholesterol Total, POC 124 mg/dL Capillary blood 03/18/2025 9 :10 AM CDT us Isaias Ashraf MD POINT OF CARE TEST ORDERABLES Fi nal Result * TRANSTHORACIC ECHO (TTE) COMPLETE W DOPPLER/CF WO CONTRAST (02/27/2025 9:04 AM CDT) LV EF 55 % CONS SCIMAGE Anatomical Region Laterality Modality Ultrasound 02/27/2025 8:17 AM CDT Narrative 02/27/2025 1:40 PM CDT [facility] Cardiology [address] [facility] [address], [place] [address] [address] [facility] [address], [place] [address] P:[phone] P:[phone] Echocardiographic Report Patient Name: BENJAMIN ZAMORA M : 1955 Study Date: 02/27/2025 8:17:54 AM Gender: M Tech: [facility] [place] [place] Ref Provider: LEENA ARANA Height(Cm): 180 BSA: 2.32 Weight(Kg): 107.5 Heart Rate: 65 BP: 118 / 80 Quality: Good Order Provider: LEENA ARANA PROCEDURES: Echocardiographic Report: Transthoracic echocardiogram with complete 2D, M-Mode, and color Doppler examination. With Strain Analysis. INDICATIONS: Near Syncope and Weakness. MEASUREMENTS: 2D/MM Value Range Doppler Value Range EF Mod BP 57 % [ 52 - 72 ] AYE Vmax 3.29 cm2 [ 2.00 - 4.00 ] EF Teich MM 61 % [ 52 - 72 ] AV Mean PG 4 mmHg Estimated EF 55 % AV Peak Dorian 1.27 m/s [ 1.00 - 1.70 ] LVIDd 2D 6.12 cm [ 4.20 - 5.80 ] AV Peak PG 6 mmHg LVIDd MM 6.20 cm [ 4.20 - 5.80 ] AV VTI 26.68 cm LVIDs 2D 4.10 cm [ 2.50 - 4.00 ] LVOT Diam 2.10 cm [ 1.70 - 2.10 ] LVIDs MM 4.14 cm [ 2.50 - 4.00 ] LVOT Peak Dorian 1.20 m/s [ 0.70 - 1.10 ] LVPWd 2D 1.19 cm [ 0.60 - 1.00 ] LVOT VTI 24.91 cm LVPWd MM 0.92 cm [ 0.60 - 1.00 ] MV E Peak Dorian 0.60 m/s [ 0.60 - 1.30 ] IVSd 2D 1.20 cm [ 0.60 - 1.00 ] MV A Peak Dorian 0.60 m/s [ 1.00 - 1.20 ] IVSd MM 1.06 cm [ 0.60 - 1.00 ] MV Mean PG 1 mmHg [ 0 - 5 ] LA Dimension 2D 4.26 cm [ 3.00 - 4.00 ] MV PHT 86 msec [ 20 - 100 ] LA Dimension MM 4.25 cm [ 3.00 - 4.00 ] MVA PHT 2.57 cm2 [ 2.00 - 4.00 ] AoR Diam 2D 3.40 cm [ 3.10 - 3.70 ] MV Decel Time 299 msec [ 104 - 258 ] AoR Diam MM 3.56 cm [ 3.10 - 3.70 ] PV Peak Dorian 1.26 m/s [ 0.40 - 0.80 ] LA Volume Index 33 cc/m2 [ 16 - 34 ] TR Peak Dorian 2.33 m/s [ 1.00 - 2.80 ] TR Peak PG 22 mmHg RVSP 25.00 mmHg [ 10.00 - 36.00 ] Lateral E` 0.12 m/s [ 0.10 - 0.15 ] E` 0.10 m/s E/E` 5 2D/MM Value Range Doppler Value Range - FINDINGS: Interpretation Site: Exam was interpreted at [facility]. Left Ventricle: Normal left ventricular systolic function. No focal wall motion abnormalities. Mild concentric left ventricular hypertrophy. Mild enlargement of left ventricle cavity. Diastolic dysfunction is present. Ejection fraction is measured at 57 %. Ejection Fraction is visually estimated to be 55 %. Global Longitudinal Strain is -15 %. GLS is abnormal. Right Ventricle: Normal right ventricular size. Normal right ventricular systolic function. Left Atrium: There is mild enlargement of left atrium. Right Atrium: The right atrium is normal in size. Atrial Septum: Normal atrial septum. Mitral Valve: Normal appearance of the mitral valve. Mild mitral valve regurgitation. There is no hemodynamically significant mitral stenosis by Doppler. Aortic Valve: No evidence of hemodynamically significant aortic stenosis by Doppler. Aortic cusps appear mildly sclerotic. Trileaflet aortic valve. Trace aortic valve regurgitation. Tricuspid Valve: Normal appearance of the tricuspid valve. Normal right ventricular systolic pressure. Estimated peak RVSP is 25 mmHg. Mild tricuspid regurgitation. Pulmonic Valve: Normal appearance of the pulmonic valve. No pulmonic stenosis. Mild pulmonic regurgitation. Pericardium: Normal pericardium with no significant pericardial effusion. Aorta: Normal aortic root. IVC: Normal size and normal respiratory collapse consistent with normal right atrial pressure (<5 mmHg). CONCLUSIONS: Normal left ventricular systolic function. No focal wall motion abnormalities. Mild concentric left ventricular hypertrophy. Mild enlargement of left ventricle cavity. Diastolic dysfunction is present. Ejection fraction is measured at 57 %. Ejection Fraction is visually estimated to be 55 %. Global Longitudinal Strain is -15 %. GLS is abnormal. There is mild enlargement of left atrium. Mild mitral valve regurgitation. Mild tricuspid regurgitation. Mild pulmonic regurgitation. Normal sinus rhythm. Electronically Signed By: Braulio Tristan MD 02/27/2025 1:39:42 PM CDT Procedure Note Braulio Tristan MD - 02/27/2025 [facility] Cardiology [address] [facility] [address], [place] [address] [address] [facility] [address], [place] [address] P:[phone] P:[phone] Echocardiographic Report Patient Name: BENJAMIN ZAMORA M : 1955 Study Date: 02/27/2025 8:17:54 AM Gender: M Tech: [facility] Ref Provider: LEENA ARANA Height(Cm): 180 BSA: 2.32 Weight(Kg): 107.5 Heart Rate: 65 BP: 118 / 80 Quality: Good Order Provider: LEENA ARANA PROCEDURES: Echocardiographic Report: Transthoracic echocardiogram with complete 2D, M-Mode, and color Dopplerexamination. With Strain Analysis. INDICATIONS: Near Syncope and Weakness. MEASUREMENTS: 2D/MM Value Range Doppler ValueRange EF Mod BP 57 % [ 52 - 72 ] AYE Vmax 3.29cm2 [ 2.00 - 4.00 ] EF Teich MM 61 % [ 52 - 72 ] AV Mean PG 4mmHg Estimated EF 55 % AV Peak Dorian 1.27m/s [ 1.00 - 1.70 ] LVIDd 2D 6.12 cm [ 4.20 - 5.80 ] AV Peak PG 6mmHg LVIDd MM 6.20 cm [ 4.20 - 5.80 ] AV VTI 26.68cm LVIDs 2D 4.10 cm [ 2.50 - 4.00 ] LVOT Diam 2.10 cm[ 1.70 - 2.10 ] LVIDs MM 4.14 cm [ 2.50 - 4.00 ] LVOT Peak Dorian 1.20m/s [ 0.70 - 1.10 ] LVPWd 2D 1.19 cm [ 0.60 - 1.00 ] LVOT VTI 24.91cm LVPWd MM 0.92 cm [ 0.60 - 1.00 ] MV E Peak Dorian 0.60m/s [ 0.60 - 1.30 ] IVSd 2D 1.20 cm [ 0.60 - 1.00 ] MV A Peak Dorian 0.60m/s [ 1.00 - 1.20 ] IVSd MM 1.06 cm [ 0.60 - 1.00 ] MV Mean PG 1 mmHg[ 0 - 5 ] LA Dimension 2D 4.26 cm [ 3.00 - 4.00 ] MV PHT 86 msec[ 20 - 100 ] LA Dimension MM 4.25 cm [ 3.00 - 4.00 ] MVA PHT 2.57cm2 [ 2.00 - 4.00 ] AoR Diam 2D 3.40 cm [ 3.10 - 3.70 ] MV Decel Time 299msec [ 104 - 258 ] AoR Diam MM 3.56 cm [ 3.10 - 3.70 ] PV Peak Dorian 1.26m/s [ 0.40 - 0.80 ] LA Volume Index 33 cc/m2 [ 16 - 34 ] TR Peak Dorian 2.33m/s [ 1.00 - 2.80 ] TR Peak PG 22 mmHg RVSP 25.00 mmHg [ 10.00 - 36.00 ] Lateral E` 0.12 m/s [ 0.10 - 0.15 ] E` 0.10 m/s E/E` 5 2D/MM Value Range Doppler ValueRange - FINDINGS: Interpretation Site: Exam was interpreted at [facility]. Left Ventricle: Normal left ventricular systolic function. No focal wall motionabnormalities. Mild concentric left ventricular hypertrophy. Mild enlargement of leftventricle cavity. Diastolic dysfunction is present. Ejection fraction is measured at 57 %.Ejection Fraction is visually estimated to be 55 %. Global Longitudinal Strain is-15 %. GLS is abnormal. Right Ventricle: Normal right ventricular size. Normal right ventricular systolicfunction. Left Atrium: There is mild enlargement of left atrium. Right Atrium: The right atrium is normal in size. Atrial Septum: Normal atrial septum. Mitral Valve: Normal appearance of the mitral valve. Mild mitral valve regurgitation.There is no hemodynamically significant mitral stenosis by Doppler. Aortic Valve: No evidence of hemodynamically significant aortic stenosis by Doppler.Aortic cusps appear mildly sclerotic. Trileaflet aortic valve. Trace aortic valveregurgitation. Tricuspid Valve: Normal appearance of the tricuspid valve. Normal right ventricularsystolic pressure. Estimated peak RVSP is 25 mmHg. Mild tricuspid regurgitation. Pulmonic Valve: Normal appearance of the pulmonic valve. No pulmonic stenosis. Mildpulmonic regurgitation. Pericardium: Normal pericardium with no significant pericardial effusion. Aorta: Normal aortic root. IVC: Normal size and normal respiratory collapse consistent with normal rightatrial pressure (<5 mmHg). CONCLUSIONS: Normal left ventricular systolic function. No focal wall motionabnormalities. Mild concentric left ventricular hypertrophy. Mild enlargement of leftventricle cavity. Diastolic dysfunction is present. Ejection fraction is measured at 57 %.Ejection Fraction is visually estimated to be 55 %. Global Longitudinal Strain is-15 %. GLS is abnormal. There is mild enlargement of left atrium. Mild mitral valve regurgitation. Mild tricuspid regurgitation. Mild pulmonic regurgitation. Normal sinus rhythm. Electronically Signed By: Braulio Tristan MD 02/27/2025 1:39:42 PM CDT Leena Arana INVESTIGATION CLERK CV ECHO PROCEDURES Final Result * (ABNORMAL) CBC with auto differential (02/27/2025) SCRIBED WBC 6.6 4.5 - 10.0 k/cumm EXTERNAL LAB SCRIBED RBC 5.08 4.6 - 6.20 m/cumm EXTERNAL LAB SCRIBED Hemoglobin 14.8 14 - 18 g/dL EXTERNAL LAB SCRIBED Hematocrit 44.1 42 - 52 % EXTERNAL LAB SCRIBED MCH 29.1 26 - 34 pg EXTERNAL LAB SCRIBED MCHC 33.6 32 - 36 g/dL EXTERNAL LAB SCRIBED RDW 14 11.5 - 14.5 g/dl EXTERNAL LAB SCRIBED RDW SD N/A N/A fL EXTERNAL LAB SCRIBED RDW CV N/A N/A % EXTERNAL LAB SCRIBED Platelets 242 150 - 375 k/cumm EXTERNAL LAB SCRIBED MPV 10.2 7.4 - 10.4 fL EXTERNAL LAB SCRIBED NRBC 0 0 - 0.2 /100 WBC EXTERNAL LAB SCRIBED Lymphocytes 31.1 18.3 - 44.2 % EXTERNAL LAB SCRIBED Atypical Lymphocytes N/A N/A % EXTERNAL LAB SCRIBED Monocytes 9.0(A) 2.6 - 8.5 % EXTERNAL LAB SCRIBED Neutrophils 55.6 45.5 - 73.1 % EXTERNAL LAB SCRIBED Imm Granulocytes 0.2 0 - 0.5 % EXTERNAL LAB SCRIBED Eosinophils 2.9 0 - 4.4 % EXTERNAL LAB SCRIBED Basophils 1.2 0.2 - 1.2 % EXTERNAL LAB SCRIBED NRBC Abs 0 0 - 0.012 K/cumm EXTERNAL LAB SCRIBED Lymphocytes Abs 2.04 0.9 - 3.2 k/cumm EXTERNAL LAB SCRIBED Monocytes Abs 0.6 0.1 - 0.6 k/cumm EXTERNAL LAB SCRIBED Neutrophils Abs 3.6 1.3 - 6.7 k/cumm EXTERNAL LAB SCRIBED Imm Granulocytes Abs 0.01 0 - 0.031 EXTERNAL LAB SCRIBED Eosinophils Abs 0.2 0 - 0.3 k/cumm EXTERNAL LAB SCRIBED Basophils Abs 0.1 0 - 0.1 k/cumm EXTERNAL LAB SCRIBED Bands N/A N/A % EXTERNAL LAB SCRIBED Segs N/A N/A % EXTERNAL LAB SCRIBED Total Cells Diffed N/A N/A EXTERNAL LAB SCRIBED MCV 86.8 80 - 100 fl EXTERNAL LAB Blood 02/27/2025 us Leena Arana NP LAB BLOOD ORDERABLES Magdalena wallis Result EXTERNAL LAB * M[facility] Mobile Cardiac Telemetry Event Monitor (02/06/2025 9:57 AM CDT) Anatomical Region Laterality Modality Electrocardiogra phy Narrative 02/17/2025 1:47 PM CDT AMBULATORY DIRECTOR SURFACE TRANSPORTATION REPORT Patient Name: Benjamin Zamora Date of : 1955 Requesting Physician: leena Arana Date of interpretation: 02/17/25 Type of monitor : 7 day mobile cardiac outpatient telemetry Date of the study/Enrollment period: February 06 till February 12, 2025 Indication: Weakness, syncope and collapse Quality of the study: Good Interpretation: Average heart rate was 79 beats per minute with a minimum heart rate 49 beats per minute and maximum heart rate 155 beats per minute. Langdon of PVCs less than 1% and burden [...] was used to complete this document, therefore, eyeletter variances may occur. Nidai Sauceda MD, FACC 02/17/25 Leena Arana NP CV CARDIAC SERVICES [facility] Final Result from Last 3 Months Insurance HU[employer]NA MEDICARE HMO HUMANA MEDICARE HMO [facility] MEDICARE HMO Care Teams Mold Setter Relationship Specialty Start Date End Date Juan F Esparza MD [address] [address] PCP - General Family Medicine 02/13/23
--- OUTSIDE RECORDS SUMMARY | 2025-05-03 05:36 | XMS_ITS | Encounter Summary ---
Author Organization [facility] Healthcare Address [address] [place] [address] Care Team Providers Care Group Burner Machine Name Role Phone Juan F Esparza MD Primary Care Provider [phone] Encounter Details Date Type Department Care Team (Late st Contact Info) Description 03/04/2025 Results Follow-Up [facility] Cardiology [address] [place] [phone] Tamera Fang NP [address] [facility] [address] [place] [address] CBC with auto differential Social History Tobacco Use Types Packs/Day Years [...] on file 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
--- OUTSIDE RECORDS SUMMARY | 2025-05-03 05:36 | XMS_ITS | Referral Summary ---
Author Organization [facility] Address [address] [place] [address] Care Team Providers Care Edge Setter Name Role Phone Juan F Esparza MD Primary Care Provider [phone] Encounters Date Type Department Care Team Description 03/18/2025 9:30 AM CDT Office Visit [facility] Cardiology [address] [facility] [address] [place] [phone] Isaias Ashraf MD Atypical chest pain (Primary Dx); Palpitations; PAC (premature atrial contraction); Essential hypertension; MISAH on CPAP; Lipid screening 03/04/2025 Results Follow-Up [facility] Cardiology [address] [place] [address] [place] [phone] Leena Arana NP CBC with auto differential 02/27/2025 8:15 AM CDT Ancillary Procedure [facility] Cardiology [address] [place] [address] [place] [phone] Episodic weakness; Near syncope 02/18/2025 Telephone [facility] Cardiology [address] [place] [address] [place] [phone] Leena Arnaa NP 02/17/2025 Results Follow-Up [facility] Cardiology [address] [place] [address] [place] [phone] Leena Arana NP [facility] Mobile Cardiac Telemetry Event Monitor, Transthoracic Echo (TTE) Complete W Doppler/CF 02/14/2025 Telephone [facility] Cardiology [address] [place] [address] [address] [place] [phone] Isaias Ashraf MD 02/06/2025 10:30 AM CDT Ancillary Procedure [facility] Cardiology [address] [place] [address] [place] [phone] Episodic weakness; Near syncope 02/06/2025 9:00 AM CDT Office Visit [facility] Cardiology [address] [place] [address] [place] [phone] Leena Arana NP Episodic weakness (Primary Dx); Near syncope; MISHA (obstructive sleep apnea) 01/31/2025 Telephone [facility] Cardiology [address] [place] [address] [place] [phone] Isaias Ashraf MD from Last 3 [...] (02/20/2023): Added automatically from request for surgery [id number] Abnormal stress test 02/20/2023 Overview (02/20/2023): Added automatically from request for surgery [id number] Social History Tobacco Use Types Packs/Day Years [...] on file 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 Gender Identity Male 01/24/2023 10:35 AM COMMODITY DIRECTOR Sexual Orientation Not on file Last Filed [...] 03/18/2025 9:05 AM CDT Plan of Treatment Not on file Medical Devices Implanted Type Area Technical Specialist Device Identifier Shelf Expiration Date Model / Serial / Lot [employer] Device Closure Vascade Od5 Fr Femoral Artery [id number] - [id number] Implanted:Qty: 1 on 03/16/2023 by Isaias Ashraf MD at [facility] [employer] 12/19/2024 [id number] / / [id number] Procedures Procedure Name Priority Date/Time Associated [...] AM CDT Narrative 02/27/2025 1:40 PM CDT [facility] Cardiology [address] [facility] [address] [id number] [address] [facility] [address], [place] [address] P:[phone] P:[phone] Echocardiographic Report Patient Name: BENJAMIN ZAMORA M : 1955 Study Date: 02/27/2025 8:17:54 AM Gender: M Tech: [facility] Location: [place] Ref Provider: LEENA ARANA Height(Cm): 180 BSA: [...] Interpretation Site: Exam was interpreted at [facility]. Left Ventricle: Normal left ventricular systolic function. [...] Procedure Note Braulio Tristan MD - 02/27/2025 [facility] Cardiology [address], [place] [address] [address] [facility] [address], [place] [address] P:[phone] P:[phone] Echocardiographic Report Patient Name: BENJAMIN ZAMORA M : 1955 Study Date: 02/27/2025 8:17:54 AM Gender: M Tech: [facility] Location: [facility] Provider: LEENA ARANA Height(Cm): 180 BSA: 2.32 [...] Interpretation Site: Exam was interpreted at [facility]. Left Ventricle: Normal left ventricular systolic function. [...] MD 02/27/2025 1:39:42 PM CDT Leena Arana NP CV ECHO PROCEDURES Final Result * (ABNORMAL) [...] EXTERNAL LAB Blood 02/27/2025 us Leena Arana LONG DISTANCE OPERATOR LAB BLOOD ORDERABLES Magdalena l Result EXTERNAL LAB * [facility] Mobile Cardiac Telemetry Event Monitor (02/06/2025 9:57 AM CDT) Anatomical Region Laterality Modality Electrocardiogra phy Narrative 02/17/2025 1:47 PM CDT AMBULATORY ARMATURE WINDER REPAIR HELPER REPORT Patient Name: Benjamin Zamora Date of [...] maximum heart rate 155 beats per minute. [place] of PVCs less than 1% and burden [...] was used to complete this document, therefore, progressive care nurse variances may occur. Nidia Sauceda MD, [facility] 02/17/25 Leena Arana NP CV CARDIAC SERVICES [facility] Final Result from Last 3 Months Insurance [employer] [address] MEDICARE HMO HUMANA MEDICARE HMO HUMANA MEDICARE HMO Care Teams Edge Setter Relationship Specialty Start Date End Date Juan F Esparza MD [address] [address] PCP - General Family Medicine 02/13/23
[2025-05-03 05:39] VITALS: BP 138/78; PULSE 66; RESP 16; TEMP 36.6; O2SAT 97
[2025-05-03 05:43] VITALS: BP 147/92; PULSE 68; RESP 19; TEMP 36.3; O2SAT 98
[2025-05-03] MEDS: LACTATED RINGERS 1,000 ML 999 ML IV CONT (06:00)
[2025-05-03 06:03] LABS: Basophils Absolute Auto 0.1 K/mm3 (0.0-0.1); Basophils Percent Auto 1.1 % (0.2-1.2); Eosinophils Absolute Auto 0.2 K/mm3 (0-0.3); Hematocrit 42.7 % (42.0-52.0); Hemoglobin 14.4 g/dL (14.0-18.0); Immature Granulocyte Absolute 0.02 K/mm3 (0.00-0.031); Immature Granulocyte Percent A 0.3 % (0-0.5); Lymphocytes Absolute Auto 2.39 K/mm3 (0.9-3.2); Lymphocytes Percent Auto 32.4 % (18.3-44.2); Mean Corpuscular HGB Conc 33.7 g/dl (32-36); Mean Corpuscular Volume 86.1 fl (80-100); Mean Platelet Volume 9.9 fl (7.4-10.4); Monocytes Absolute Auto 0.6 K/mm3 (0.1-0.6); Monocytes Percent Auto 8.4 % (2.6-8.5); Neutrophils Percent Auto 54.8 % (45.5-73.1); Platelet Count Result 260 k/mm3 (150-375); Red Blood Count 4.96 M/mm3 (4.6-6.20); Red Cell Distribution Width 14.2 % (11.5-14.5); White Blood Count 7.4 K/mm3 (4.5-10.0)
--- OUTSIDE RECORDS SUMMARY | 2025-05-03 06:12 | XMS_ITS | Referral Summary ---
Author Organization [facility] Address [address] [place] [id number] Care Team Providers Care Gridcap Machine Operator Name Role Phone Juan F Esparza MD Primary Care Provider [phone] Encounters Date Type Department Care Team Description 03/18/2025 9:30 AM CDT Office Visit [facility] Cardiology [address] [facility] [address] [place] [phone] Isaias Ashraf MD Atypical chest pain (Primary Dx); Palpitations; PAC (premature atrial contraction); Essential hypertension; MISHA on CPAP; Lipid screening 03/04/2025 Results Follow-Up [facility] Cardiology [address] [place] [address] [place] [phone] Leena Arana NP CBC with auto differential 02/27/2025 8:15 AM CDT Ancillary Procedure [facility] Cardiology [address] [place] [address] [place] [phone] Episodic weakness; Near syncope 02/18/2025 Telephone [facility] Cardiology [address] [place] [address] [place] [phone] Leena Arana NP 02/17/2025 Results Follow-Up [facility] Cardiology [address] [place] [address] [place] [phone] Leena Arana NP [facility] Mobile Cardiac Telemetry Event Monitor, Transthoracic Echo (TTE) Complete W Doppler/CF 02/14/2025 Telephone [facility] Cardiology [address] [place] [address] [place] [phone] Isaias Ashraf MD 02/06/2025 10:30 AM CDT Ancillary Procedure [facility] Cardiology [address] [place] [address] [place] [phone] Episodic weakness; Near syncope 02/06/2025 9:00 AM CDT Office Visit [facility] Cardiology [address] [place] [address] [place] [phone] Leena Arana NP Episodic weakness (Primary Dx); Near syncope; MISHA (obstructive sleep apnea) 01/31/2025 Telephone [facility] Cardiology [address] [place] [address] [place] [phone] Isaias Ashraf MD from Last 3 [...] (02/20/2023): Added automatically from request for surgery [id number] Abnormal stress test 02/20/2023 Overview (02/20/2023): Added automatically from request for surgery [id number] Social History Tobacco Use Types Packs/Day Years [...] on file Legal Sex Male 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 [employer] 12/19/2024 700-500DX-0 [id number] / / [id number] Procedures Procedure Name Priority Date/Time Associated [...] [facility] Cardiology [address] [facility] [address] [id number] [address] [facility] [address] [address] P:[phone] P:[phone] Echocardiographic Report Patient Name: BENJAMIN ZAMORA M : 1955 Study Date: 02/27/2025 8:17:54 AM Gender: M Tech: [facility] Location: [place] Ref Provider: LEENA ARANA Height(Cm): 180 BSA: [...] FINDINGS: Interpretation Site: Exam was interpreted at [facility]. Left Ventricle: Normal left ventricular systolic function. [...] [facility] Cardiology [address], [place] [address] [address] [facility] [address], [place] [address] P:[phone] P:[phone] Echocardiographic Report Patient Name: BENJAMIN ZAMORA M : 1955 Study Date: 02/27/2025 8:17:54 AM Gender: M Tech: [facility] Location: [facility] Provider: LEENA ARANA Height(Cm): 180 BSA: 2.32 [...] FINDINGS: Interpretation Site: Exam was interpreted at [facility]. Left Ventricle: Normal left ventricular systolic function. [...] EXTERNAL LAB Blood 02/27/2025 us Leena Arana PATTERN MAKER LAB BLOOD ORDERABLES Magdalena l Result EXTERNAL LAB * [facility] Mobile Cardiac Telemetry Event Monitor (02/06/2025 9:57 AM CDT) Anatomical Region Laterality Modality Electrocardiogra phy Narrative 02/17/2025 1:47 PM CDT AMBULATORY LAMINATE FLOOR INSTALLER REPORT Patient Name: Benjamin Zamora Date of [...] heart rate 155 beats per minute. [place] of PVCs less than 1% and burden [...] was used to complete this document, therefore, social science instructor variances may occur. Nidia Sauceda MD, [facility] 02/17/25 Leena Arana NP [facility] Final Result from Last 3 Months Insurance [employer] [address] MEDICARE HMO HUMANA MEDICARE HMO HUMANA MEDICARE HMO Care Teams Gridcap Machine Operator Relationship Specialty Start Date End Date Juan F Esparza MD [address] [address] PCP - General Family Medicine 02/13/23
--- OUTSIDE RECORDS SUMMARY | 2025-05-03 06:12 | XMS_ITS | Encounter Summary ---
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
--- OUTSIDE RECORDS SUMMARY | 2025-05-03 06:12 | XMS_ITS | Clinical Summary ---
Author Organization [facility] Address [address] [place] [phone] Care Team Providers Care Swimming Pool Salesperson Name Role Phone Juan F Esparza MD Primary Care Provider [phone] Allergies Active Allergy Reactions Criticality Noted Date [...] (02/20/2023): Added automatically from request for surgery [id number] Abnormal stress test 02/20/2023 Overview (02/20/2023): Added automatically from request for surgery [id number] Encounters Date Type Department Care Team Description 03/18/2025 9:30 AM CDT Office Visit [facility] Cardiology [address] [place] [phone] Isaias Ashraf MD Atypical chest pain (Primary Dx); Palpitations; PAC (premature atrial contraction); Essential hypertension; MISHA on CPAP; Lipid screening 03/04/2025 Results Follow-Up [facility] Cardiology [address] [place] [address] [place] [phone] Leena Arana NP CBC with auto differential 02/27/2025 8:15 AM CDT Ancillary Procedure [facility] Cardiology [address] [place] [address] [place] [phone] Episodic weakness; Near syncope 02/18/2025 Telephone [place] [address] [place] [phone] Leena Arana NP 02/17/2025 Results Follow-Up [place] [address] [place] [phone] Leena Arana NP [facility] Mobile Cardiac Telemetry Event Monitor, Transthoracic Echo (TTE) Complete W Doppler/CF 02/14/2025 Telephone [place] [address] [place] [phone] Isaias Ashraf MD 02/06/2025 10:30 AM CDT Ancillary Procedure [place] [address] [place] [phone] Episodic weakness; Near syncope 02/06/2025 9:00 AM CDT Office Visit [place] [address] [place] [phone] Leena Arana NP Episodic weakness (Primary Dx); Near syncope; MISHA (obstructive sleep apnea) 01/31/2025 Telephone [place] [address] [place] [phone] Isaias Ashraf MD from Last 3 Months [...] on file Legal 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 Male 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 Gender Identity Male 01/24/2023 10:35 AM HAND HIDE STRETCHER Sexual Orientation Not on file Obstetrics History [...] 03/16/20 23 Medical Devices Implanted Type Area Pharmacy Customer Care Specialist Device Identifier Shelf Expiration Date Model / Serial / Lot [facility] Device Closure Vascade Od5 Fr Femoral Artery [id number] - [id number] Implanted:Qty: 1 on 03/16/2023 by Isaias Ashraf MD at [facility] 12/19/2024 700-500DX-0 [id number] / / [id number] Procedures Procedure Name Priority Date/Time Associated [...] AM CDT Narrative 02/27/2025 1:40 PM CDT [facility] Cardiology [address] [facility] [address], [place] [address] [address] [facility] [address], [place] [address] P:[phone] P:[phone] Echocardiographic Report Patient Name: BENJAMIN ZAMORA M : 1955 Study Date: 02/27/2025 8:17:54 AM Gender: M Tech: [facility] Location: [place] Ref Provider: LEENA ARANA Height(Cm): 180 BSA: [...] FINDINGS: Interpretation Site: Exam was interpreted at [facility]. Left Ventricle: Normal left ventricular systolic function. [...] Procedure Note Braulio Tristan MD - 02/27/2025 [facility] Cardiology [address] [facility] [address] [address] [address] [facility] [id number] [address] P:[phone] P:[phone] Echocardiographic Report Patient Name: BENJAMIN ZAMORA M : 1955 Study Date: 02/27/2025 8:17:54 AM Gender: M Tech: [facility] Location: [place] Ref Provider: LEENA ARANA Height(Cm): 180 BSA: [...] FINDINGS: Interpretation Site: Exam was interpreted at [facility]. Left Ventricle: Normal left ventricular systolic function. [...] MD 02/27/2025 1:39:42 PM CDT Leena Arana COMPLAINT SUPERVISOR CV ECHO PROCEDURES Final Result * (ABNORMAL) [...] phy Narrative 02/17/2025 1:47 PM CDT AMBULATORY AQUATICS ASSISTANT DEPARTMENT HEAD REPORT Patient Name: Benjamin Zamora Date of [...] maximum heart rate 155 beats per minute. [place] of PVCs less than 1% and burden [...] was used to complete this document, therefore, supervising appraiser variances may occur. Nidia Sauceda MD, FACC 02/17/25 Leena Arana NP [facility] Final Result from Last 3 Months Insurance HU[employer]NA MEDICARE HMO HUMANA MEDICARE HMO [facility] MEDICARE HMO Care Teams Swimming Pool Salesperson Relationship Specialty Start Date End Date Juan F Esparza MD [address] [address] PCP - General Family Medicine 02/13/23
--- OUTSIDE RECORDS SUMMARY | 2025-05-03 06:13 | XMS_ITS | CONTINUITY OF CARE DOCUMENT ---
Author Name duncanlillycelina Address Unknown Organization [facility] Address [address] [facility] [address] [place] [address] Phone [phone] Care Team Providers Care Commercial Singer Name Role Phone Mark Horton MD Unavailable JANIA ALBERTS, MARY Parr Unavailable DENEEN PENA MD Unavailable [phone] INSURANCE PROVIDERS Payer name Policy type / Coverage type [employer] red constitution party ID [employer] Diabetes insurance [employer] [id number]
[2025-05-03 06:37] LABS: Alanine Aminotransferase 20 U/L (6-50); Albumin Level 3.7 g/dL (3.5-5.1); Alkaline Phosphatase 63 U/L (38-126); Anion Gap 7 mmol/L (4-12); Aspartate Amino Transferase 28 U/L (17-59); Bilirubin,Total 0.8 mg/dL (0.2-1.3); Blood Urea Nitrogen 11 mg/dL (9-20); Calcium 8.8 mg/dL (8.4-10.2); Carbon Dioxide 26 mmol/L (22-30); Chloride 105 mmol/L (98-107); Estimated CRCL calculation 80 ml/min; Estimated Glomerular Filt Rate > 60; Glucose 115 mg/dL (65-110); Lipase 29 U/L (23-300); Potassium 3.7 mmol/L (3.4-5.0); Sodium 138 mmol/L (137-145); Total Protein 6.8 g/dL (6.3-8.2)
--- NOTE | 2025-05-03 06:40 | ED_ITS ---
HPI - Nausea/Vomiting/Diarrhea General Chief complaint: Nausea/Vomiting/Diarrhea Stated complaint: abd pain, diarrhea [id number] Time Seen by Provider: 05/03/25 05:51 History of Present Illness HPI Narrative: 69-year-old male with a past history of colitis presenting to the emergency room with 2 weeks of watery diarrhea, upset stomach. Patient denies any fever, chills, nausea, vomiting, chest pain, abdominal pain. No recent travel. He has contacted his PCP and gotten several medications to try without any relief including loperamide and dicyclomine. Patient is concerned that this could be potentially colitis. No recent injuries, hospital visits, antibiotic use or infections. Diarrhea is liquid with no blood or melena. Related Data Home Medications ?Medication ?Instructions ?Recorded ?Confirmed ?Last Taken ?Type rosuvastatin 40 mg tablet 40 mg PO DAILY 02/07/23 03/05/25 Unknown History cyanocobalamin (vitamin B-12) 1,000 mcg PO DAILY 02/14/23 03/05/25 Unknown History 1,000 mcg tablet riboflavin (vitamin B2) 400 mg 400 mg PO DAILY 10/26/23 03/05/25 Unknown History tablet finasteride 5 mg tablet 5 mg PO DAILY 11/30/23 03/05/25 Unknown History lisinopril 40 mg tablet 40 mg PO DAILY 06/11/24 03/05/25 Unknown History Allergies Allergy/AdvReac Type Severity Reaction Status Date / Time cefdinir Allergy Severe Swelling Verified 05/03/25 05:43 latex Allergy Severe Blister Verified 05/03/25 05:43 cyclobenzaprine Allergy Mild Rash Verified 05/03/25 05:43 omnocef Allergy Intermediate Swelling Uncoded 05/03/25 05:43 of Lip/Tongue/Throat Review of Systems 2 Review of Systems: As reviewed above in HPI [facility] Past Medical History Medical History Diarrhea Chest tightness Acute bronchitis BMI 33.0-33.9,adult Plant allergic contact dermatitis Migraine with aura and with status migrainosus, not intractable optic migraine Allergic drug reaction (11/24/23) Omnicef Ocular headache (~09/2023) At low risk for fall Chronic bilateral low back pain without sciatica BMI 32.0-32.9,adult Finger wound, simple, open X-ray of the left little finger 04/14/2023 with no foreign body. UTI (urinary tract infection) Bilateral chronic knee pain Encounter for prostate cancer screening PSA 0.69 on 07/20/2023. PSA 0.8 on 10/01/2024. Encounter for screening for vascular disease (01/04/23) lifeline screening 01/04/2023 with normal abdominal aorta. Normal CY at 1.11 on the left and 1.16 on the right. Bone density normal. Chest pain (~01/04/23) EKG 01/05/2023 with normal sinus rhythm. stress sestamibi 02/13/2023 with no EKG changes. Nuclear scan with ejection fraction of 61% with a small apical/ inferior lateral fixed defect suggestive of prior infarction. cardiac catheterization 02/13/2023 with no coronary artery disease and ejection fraction 60%. Echocardiogram 05/11/2023 with mild diastolic dysfunction. Encounter for HCV screening test for low risk patient (11/10/22) screening for hepatitis C by house call on 11/10/2022 was negative. Hematospermia (~06/2022) Obesity (BMI 30.0-34.9) Acute non-recurrent maxillary sinusitis Adverse drug reaction (~02/09/22) Male erectile dysfunction, unspecified Testosterone 530 with free testosterone 82.9 on 12/21/2024. Fungal nail infection Personal history of colonic polyps Colon cancer screening Dyshidrotic eczema (~06/23/21) Pain of left great toe Aortic atherosclerosis Fatty infiltration of liver AST 15 with ALT 12 on 07/18/2022. AST 12, ALT 10 on 01/24/2023. fatty liver noted on CT of the abdomen and pelvis on 04/03/2023. GGT 13, AST 16, ALT 16 on 07/20/2023. AST 24, ALT 21 on 10/01/2024. Colitis, acute COPD (chronic obstructive pulmonary disease) (03/22/21) mild obstructive airway disease with air trapping on PFT on 03/22/2021 Dyspnea on exertion Echocardiogram 05/11/2023 with normal ejection fraction and mild inferior posterior hypokinesis of the left ventricle. COVID-19 (11/09/20) Loss, sense of, smell Exposure to COVID-19 virus BMI 31.0-31.9,adult Lumbar back pain with radiculopathy affecting left lower extremity Hypertension Left hip pain Adhesive capsulitis of left shoulder BMI 29.0-29.9,adult Psoriasis Plantar fasciitis, bilateral Chronic left shoulder pain Chronic bilateral low back pain with bilateral sciatica Polyp of colon adenomatous polyp 2018. normal colonoscopy 09/23/[address] Bello. Recheck in 5 years. Nocturia PSA normal at 0.9 on 07/18/2022. Vitamin D deficiency, unspecified Level normal at 33 on 07/18/2022. Level normal at 48 on 07/20/2023. Vitamin B12 deficiency anemia Normal at 995 with hemoglobin 15.3 on 07/18/2022. Normal at 1072 with hemoglobin 15.2 on 07/20/2023. Seasonal allergic rhinitis Chronic depression GERD with esophagitis gastritis on EGD on 11/12/2019 Irritable bowel syndrome with diarrhea Depression Abnormal fasting glucose Glucose 112 with hemoglobin A1c 5.7 on 11/22/2022. Fasting glucose 101 on 01/24/2023. Fasting glucose 98 with hemoglobin A1c 5.8 on 07/20/2023. Glucose 107, hemoglobin 5.9, microalbumin ratio less than 5.5 with GFR 60 on 10/01/2024. Surgical History Surgical History History of cholecystectomy (~01/2010) Previous back surgery (~02/2018) Family History Family History Mother Family history of diabetes mellitus in first degree relative Father , rx drug overdose Depression Grandparent Cerebrovascular accident Heart disease Grandparent Leukemia Cancer Grandparent Depression Suicide Sibling Diabetes mellitus Sibling Autoimmune disorder Other Arthritis Hypertension Social History Social History Smoking packs per day: 1 Smoking cigarettes per day: 20.0 Years smoked: 45 Smoking pack-years: 45.00 Smoking status: Former smoker Tobacco type: cigarettes Smoking end date: 11/27/09 Alcohol intake: current Alcohol use details: Rarely Substance use: never Substance use type: does not use Lack of Transportation: No Lack of Food: Never True Current Housing: I Have Housing Concerned About Future Housing: No Difficulty Paying Gas/Electric Bills: No Difficulty Paying for Meds: No Currently Unemployed: No Education: High School Diploma/GED Difficulty w/ Childcare or Family Care: No Living arrangements: with family Gender identity (if verbalized by the patient): Male Exam 2 Narrative: GENERAL: [Well-appearing, well-nourished, and in no acute distress.] HEAD: [Normocephalic, atraumatic.] EYES: [PERRLA and EOMI.] ENT: Nares clear, no rhinorrhea or epistaxis. Mucous membranes moist. NECK: Supple. CHEST: [Clear to auscultation. No respiratory distress.] HEART: [Regular rate and rhythm]. No murmur heard. [Normal peripheral pulses.] ABDOMEN: [Soft, nondistended], [nontender], [No rigidity or guarding] EXTREMITIES: Normal range of motion. [No edema.] SKIN: Warm, dry, no rash. NEURO: [No focal deficits]. Alert and oriented [x3.] PSYCH: [Normal mood and affect.] Course Vital Signs Vital signs: Vital Signs Temperature 36.6 C 05/03/25 05:39 Pulse Rate 66 05/03/25 05:39 Respiratory Rate 16 05/03/25 05:39 Blood Pressure 138/78 05/03/25 05:39 Pulse Oximetry 97 05/03/25 05:39 Oxygen Delivery Room Air 05/03/25 05:39 Temperature 36.3 C L 05/03/25 05:43 Pulse Rate 68 05/03/25 05:43 Respiratory Rate 19 05/03/25 05:43 Blood Pressure 147/92 H 05/03/25 05:43 Pulse Oximetry 98 05/03/25 05:43 Oxygen Delivery Room Air 05/03/25 05:39 MDM - Nausea/Vomiting/Diarrhea MDM Narrative Medical decision making narrative: 69-year-old male with history of hypertension and hyperlipidemia and previous colitis. Patient presents to the emergency room with 2 weeks of soft/watery diarrhea and upset stomach. No abdominal pain, nausea, vomiting, fever, chills, back pain, urinary issues. No trauma or injury. No recent antibiotic use. Has tried some [id number] therapies and prescriptions by his doctor including loperamide dicyclomine but he is still having diarrhea. Patient is well- appearing, not any acute distress with a nontender soft nondistended abdomen with normal vital signs. Suspicion presently is for gastroenteritis, colitis, diverticulitis, less likely appendicitis, cholecystitis or bowel obstruction. Laboratory studies ordered as well as a CT scan of the abdomen and pelvis with IV contrast. Patient given fluids and re-evaluated. Patient's laboratory studies are all unremarkable. No leukocytosis, anemia, electrolyte deficiencies, normal renal function, normal hepatic function. Negative lipase. CT scan shows no acute intra-abdominal or pelvic process. Prostatomegaly but chronic. Small sliding hiatal hernia. Patient has normal vital signs, unremarkable laboratory studies and unremarkable CT scan. He can be discharged home with PCP follow-up in referral to GI if this is a persistent concern. Medical Records Attestation: I reviewed the patient's medical records. Lab Data Attestation: I reviewed the patient's lab results. 05/03/25 05:50 05/03/25 05:50 Labs: Lab Results 05/03/25 Range/Units 05:50 WBC 7.4 (4.5-10.0) K/mm3 RBC 4.96 (4.6-6.20) M/mm3 Hgb 14.4 (14.0-18.0) g/dL Hct 42.7 (42.0-52.0) % MCV 86.1 (80-100) fl MCH 29.0 (26-34) pg MCHC 33.7 (32-36) g/dl RDW 14.2 (11.5-14.5) % Plt Count 260 (150-375) k/mm3 MPV 9.9 (7.4-10.4) fl Immature Gran % (Auto) 0.3 (0-0.5) % Neut % (Auto) 54.8 (45.5-73.1) % Lymph % (Auto) 32.4 (18.3-44.2) % [place] % (Auto) 8.4 (2.6-8.5) % Eos % (Auto) 3.0 (0-4.4) % Baso % (Auto) 1.1 (0.2-1.2) % Lymph # (Auto) 2.39 (0.9-3.2) K/mm3 [place] # (Auto) 0.6 (0.1-0.6) K/mm3 Eos # (Auto) 0.2 (0-0.3) K/mm3 Baso # (Auto) 0.1 (0.0-0.1) K/mm3 Abs Immat Gran (auto) 0.02 (0.00-0.031) K/mm3 Absolute Neuts (auto) 4.0 (1.3-6.7) K/mm3 Absolute Nucleated RBC 0.000 (0.0-0.012) K/mm3 Nucleated RBC % 0.0 (0.0-0.2) % Sodium 138 (137-145) mmol/L Potassium 3.7 (3.4-5.0) mmol/L Chloride 105 (98-107) mmol/L Carbon Dioxide 26 (22-30) mmol/L Anion Gap 7 (4-12) mmol/L BUN 11 (9-20) mg/dL Creatinine 0.94 (0.7-1.3) mg/dL Estim Creat Clear Calc 80 ml/min Estimated GFR > 60 (59 - ) Glucose 115 H (65-110) mg/dL Calcium 8.8 (8.4-10.2) mg/dL Total Bilirubin 0.8 (0.2-1.3) mg/dL AST 28 (17-59) U/L ALT 20 (6-50) U/L Alkaline Phosphatase 63 (38-126) U/L Total Protein 6.8 (6.3-8.2) g/dL Albumin 3.7 (3.5-5.1) g/dL Lipase 29 (23-300) U/L Imaging Data Attestation: I personally reviewed and interpreted this imaging study as follows: My impression: Impressions Abdomen/Pelvis CT 05/03/25 07:02 IMPRESSION: 1. No acute intra-abdominal/pelvic process. 2. Small sliding-type hiatal hernia. 3. Prostatomegaly. Discharge Plan Discharge Clinical Impression: Acute diarrhea Patient Disposition: Home Condition: Stable Instructions: Antibiotic Form, Acute Diarrhea (ED) Additional Instructions: All of your laboratory studies are normal, your CT scan shows no acute process within the abdomen or pelvis, no signs of infection, inflammation or obstruction. Follow-up with regular doctor. We have provided you a GI specialist to follow-up was as well at this is a persisting concern. Return with any worsening symptoms, dehydration, not able tolerate oral intake, fevers or any other concerns. Patient Language: Tajik Prescriptions: New loperamide [Anti-Diarrheal (loperamide)] 2 mg capsule 4 mg PO Q6H PRN (Reason: loose stool) Qty: 14 0RF dicyclomine 20 mg tablet 20 mg PO TID PRN (Reason: abdominal pain) Qty: 14 0RF No Action finasteride 5 mg tablet 5 mg PO DAILY cyanocobalamin (vitamin B-12) 1,000 mcg tablet 1,000 mcg PO DAILY lisinopril 40 mg tablet 40 mg PO DAILY rosuvastatin 40 mg tablet 40 mg PO DAILY tamsulosin 0.4 mg capsule 0.4 mg PO DAILY Qty: 90 3RF riboflavin (vitamin B2) 400 mg tablet 400 mg PO DAILY rizatriptan 5 mg tablet See Rx Instructions PO .COMPLEX Qty: 9 5RF Rx Instructions: take 1 tablet at onset of headache; if no relief, may repeat 1 tablet after at least 2 hrs PO fluticasone propionate 50 mcg/actuation spray,suspension 1 spray intranasal BID Qty: 48 3RF Rx Instructions: administer into each nostril pantoprazole 40 mg tablet,delayed release (DR/EC) 40 mg PO QAM Qty: 90 3RF meloxicam 15 mg tablet 15 mg PO DAILY PRN (Reason: pain) Qty: 90 3RF albuterol sulfate 90 mcg/actuation HFA aerosol inhaler 2 puff inhalation Q6-8H PRN (Reason: shortness of breath or wheezing) Qty: 8.5 11RF tizanidine 2 mg tablet 2 mg PO BID PRN (Reason: muscle spasticity) Qty: 60 2RF azelastine 137 mcg (0.1 %) spray,non-aerosol See Rx Instructions .ROUTE .COMPLEX Qty: 90 1RF Dose Instruction: INSTILL 1 SPRAY INTO EACH NOSTRIL EVERY 12 HOURS Rx Instructions: INSTILL 1 SPRAY INTO EACH NOSTRIL EVERY 12 HOURS diphenoxylate-atropine [Lomotil] 2.5-0.025 mg tablet 1 tablet PO QID PRN (Reason: diarrhea) Qty: 30 0RF Follow-up/Referrals: Juan F Esparza MD [Primary Care Provider] - Amrik Zaman MD [Physician] - 1 Week (persistent diasrrhea) Time of Disposition: :14
== END 2025-05-03 07:46 | disposition home or self-care (01) ==
PROVIDERS: Emergency Provider Student in an Organized Health Care Education/Training Program; PCP Family Medicine
DX: R19.7 Diarrhea, unspecified (principal); I70.0 Atherosclerosis of aorta; I10 Essential (primary) hypertension; E66.9 Obesity, unspecified; Z68.36 Body mass index [BMI] 36.0-36.9, adult; E55.9 Vitamin D deficiency, unspecified; J44.9 Chronic obstructive pulmonary disease, unspecified; L40.9 Psoriasis, unspecified; D51.9 Vitamin B12 deficiency anemia, unspecified; K21.00 Gastro-esophageal reflux disease with esophagitis, without bleeding; K58.0 Irritable bowel syndrome with diarrhea; F32.A Depression, unspecified; Z86.0101 Personal history of adenomatous and serrated colon polyps; Z87.440 Personal history of urinary (tract) infections; Z86.16 Personal history of COVID-19; Z87.891 Personal history of nicotine dependence; Z90.49 Acquired absence of other specified parts of digestive tract; K44.9 Diaphragmatic hernia without obstruction or gangrene; N40.0 Benign prostatic hyperplasia without lower urinary tract symptoms
CPT/HCPCS: 36415; 74177; 80053; 83690; 85025; 96360; 99284; J7120; Q9967

== ENCOUNTER 2025-05-13 10:00 | Outpatient (CLI) | payer MEDICARE, SELFPAY ==
--- OUTSIDE RECORDS SUMMARY | 2025-05-13 11:04 | XMS_ITS | Referral Summary ---
Author Organization [facility] Address [address] [place] [phone] Care Team Providers Care Outsole Scheduler Name Role Phone Juan F Esparza MD Primary Care Provider [phone] Encounters Date Type Department Care Team Description 05/13/2025 11:30 AM CDT Office Visit [facility] [address] [place] [address] [address], [place] [phone] Minor Kay MD MISHA on CPAP 03/18/2025 9:30 AM CDT Office Visit [facility] [address] [place] [address] [place] [phone] Isaias Ashraf MD Atypical chest pain (Primary Dx); Palpitations; PAC (premature atrial contraction); Essential hypertension; MISHA on CPAP; Lipid screening 03/04/2025 Results Follow-Up [facility] [address] [place] [address] [place] [phone] Tamera Arana NP CBC with auto differential 02/27/2025 8:15 AM CDT Ancillary Procedure [facility] [address] [place] [address] [address] [place] [phone] Episodic weakness; Near syncope 02/18/2025 Telephone [facility] [address] [place] [address] [address] [place] [phone] Tamera Arana NP 02/17/2025 Results Follow-Up [facility] [address] [place] [address] Tamera Arana NP [facility] Mobile Cardiac Telemetry Event Monitor, Transthoracic Echo (TTE) Complete W Doppler/CF 02/14/2025 Telephone [facility] [address] [place] [address] Isaias Ashraf MD from Last [...] (02/20/2023): Added automatically from request for surgery [id number] Abnormal stress test 02/20/2023 Overview (02/20/2023): Added automatically from request for surgery [id number] Social History Tobacco Use Types Packs/Day Years [...] on file Legal 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 Gender Identity Male 01/24/2023 10:35 AM HEAD [employer] BUSINESS DEVELOPMENT Sexual Orientation Not on file Last Filed Vital Signs Vital Sign Reading Time Taken Comments Blood Pressure 120/74 05/13/2025 11:01 AM CDT Pulse 52 05/13/2025 11:01 AM CDT Temperature 36.7 C (98 F) 04/13/2023 9:22 AM CDT Respiratory Rate 18 05/13/2025 11:01 AM CDT Oxygen Saturation 92% 05/13/2025 11:01 AM CDT Inhaled Oxygen Concentration - - Weight 106.1 kg (234 lb) 05/13/2025 11:01 AM CDT Height 180.3 cm (5' 10.98) 05/13/2025 11:01 AM CDT Body Mass Index 32.65 05/13/2025 11:01 AM CDT Plan of Treatment Upcoming Encounters Date Type Department Care Team (Late st Contact Info) Description 05/13/2025 11:30 AM CDT Office Visit [facility] [address] [facility] [address] [place] [address] Minor Kay MD [address] [place] [address] [address] [place] [address] MISHA on CPAP Medical Devices Implanted Type Area Patcher Device Identifier Shelf Expiration Date Model / Serial / Lot [facility] Device Closure Vascade Od5 Fr Femoral Artery [id number] - [id number] Implanted:Qty: 1 on 03/16/2023 by Isaias Ashraf MD at [facility] 12/19/2024 [id number] / / [id number] Procedures Procedure Name Priority Date/Time Associated Diagnosis Comments POCT LIPID PANEL Routine 03/18/2025 9:10 AM CDT Lipid screening TRANSTHORACIC ECHO (TTE) COMPLETE W DOPPLER/CF WO CONTRAST Routine 02/27/2025 9:04 AM CDT Episodic weakness Near syncope CBC WITH AUTO DIFFERENTIAL Routine 02/27/2025 Episodic weakness Near syncope from Last 3 [...] AM CDT Narrative 02/27/2025 1:40 PM CDT [facility] [address] [facility] [address], [place] [address] [address] [facility] [address], [place] [address] P:[phone] P:[phone] Echocardiographic Report Patient Name: BENJAMIN ZAMORA M : 1955 Study Date: 02/27/2025 8:17:54 AM Gender: M Tech: [facility] Location: [facility] Provider: TAMERA ARANA Height(Cm): 180 BSA: 2.32 Weight(Kg): 107.5 Heart Rate: 65 BP: 118 / 80 Quality: Good Order Provider: TAMERA ARANA PROCEDURES: Echocardiographic Report: Transthoracic echocardiogram with [...] FINDINGS: Interpretation Site: Exam was interpreted at [facility]. Left Ventricle: Normal left ventricular systolic function. [...] Procedure Note Braulio Tristan MD - 02/27/2025 [facility] [address], [place] [address] [address] [facility] [address], [place] [address] P:[phone] P:[phone] Echocardiographic Report Patient Name: BENJAMIN ZAMORA M : 1955 Study Date: 02/27/2025 8:17:54 AM Gender: M Tech: [facility] Location: [facility] Provider: TAMERA ARANA Height(Cm): 180 BSA: 2.32 Weight(Kg): 107.5 Heart Rate: 65 BP: 118 / 80 Quality: Good Order Provider: TAMERA ARANA PROCEDURES: Echocardiographic Report: Transthoracic echocardiogram with [...] FINDINGS: Interpretation Site: Exam was interpreted at [facility]. Left Ventricle: Normal left ventricular systolic function. [...] Braulio Tristan MD 02/27/2025 1:39:42 PM CDT Tamera Arana NP CV ECHO PROCEDURES Final Result [...] - 100 fl EXTERNAL LAB Blood 02/27/2025 Tamera Arana NP LAB BLOOD ORDERABLES Magdalena l Result EXTERNAL LAB from Last 3 Months Insurance [facility] MEDICARE HMO MEDICARE HMO MEDICARE HMO Care Teams Outsole Scheduler Relationship Specialty Start Date End Date Juan F Esparza MD [address] [place] [id number] PCP - General Family Medicine 02/13/23
--- OUTSIDE RECORDS SUMMARY | 2025-05-13 11:05 | XMS_ITS | Data Portability ---
Author Organization [facility] ([facility] Address [address] [facility] [address] [place] [address] Care Team Providers Care Mainframe Software Developer Name Role Phone [employer] [employer] Referring Provider [...] Time 07/31/2024 Sleep Study completed Keith Chung [facility] 08/01/20 24 11:10:10 Imaging Results None recorded. [...] Updated DateTime 07/31/2024 177.8 cm 33.1 kg/m2 156976.84 g Keith Chung [place] [facility] 08/01/2024 10:59:56 Social History None recorded. Functional Status None recorded. Mental Status None recorded. Family History Nothing Reported. Medical History No medical history recorded. Past Encounters Encounter ID Performer Location Encounter Start Date Encounter Closed Date Diagnosis/Indication Diagnosis SNOMED-CT Code Diagnosis ICD10 Code Diagnosis Note [id number] [place] [facility] [place], [facility] [phone] [place] [address] 07/31/2024 20:48:52 08/01/2024 10:58:29 Obstructive sleep apnea of adult 2472307883 103 G47.33 Health Concerns Section Related Observation LastModified by Organization Detai ls LastModified Time None Recorded Concern Status LastModified by Organization Details LastModified Time None Recorded Advance Directives Directive None Recorded Payers Insurance Date Sequence Insurance Name Policy Number Policy Coyne Covered Member ID Coyne Member ID Guarantor Name 08/01/2024 1 [employer] (MEDICARE REPLACEMENT/A DVANTAGE - HMO) Jax Fajardo [id number] Jax Fajardo
--- OUTSIDE RECORDS SUMMARY | 2025-05-13 11:05 | XMS_ITS | Encounter Summary ---
Author Organization [facility] Address [address] [place] [address] Care Team Providers Care Audio Visual Equipment Rental Clerk Name Role Phone Juan F Esparza MD Primary Care Provider [phone] Reason for Visit * Consultation (Routine) - Closed Specialty Diagnoses / Procedures Referred By Valeria t Referred To Contact Sleep Medicine Diagnoses MISHA on CPAP Isaias Ashraf MD [address] [facility] [place] [address] Phone: tel: fax: Minor Kay MD [address] [place] [address] DR MILO Gomes [address] [address] Phone: tel: fax: Referral ID Status Reason Start Date Expiration Date V isits Requested Visits Authorized [id number] Closed Specialty Services Required 03/18/2025 04/17/2026 1 1 Encounter Details Date Type Department Care Team (Late st Contact Info) Description 05/13/2025 11:30 AM CDT Office Visit [facility] [address] 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 Gender Identity Male 01/24/2023 10:35 AM COMMERCIAL LOAN REVIEWER Sexual Orientation Not on file documented as of this encounter Last Filed Vital Signs Vital Sign Reading Time Taken Comments Blood Pressure 120/74 05/13/2025 11:01 AM CDT Pulse 52 05/13/2025 11:01 AM CDT Temperature - - Respiratory Rate 18 05/13/2025 11:01 AM CDT Oxygen Saturation 92% 05/13/2025 11:01 AM CDT Inhaled Oxygen Concentration - - Weight 106.1 kg (234 lb) 05/13/2025 11:01 AM CDT Height 180.3 cm (5' 10.98) 05/13/2025 11:01 AM CDT Body Mass Index 32.65 05/13/2025 11:01 AM CDT documented in this encounter Plan of Treatment Not on file documented as of this encounter Visit Diagnoses Diagnosis MISHA on CPAP documented in this encounter Orders Outpatient Referral Count Last Ordered Date Fir st Ordered Date AMB REFERRAL TO SLEEP MEDICINE 1 05/13/2025 documented in this encounter Care Teams Audio Visual Equipment Rental Clerk Relationship Specialty Start Date End Date Juan F Esparza MD [address] [address] PCP - General Family Medicine 02/13/23 documented as of this encounter
--- OUTSIDE RECORDS SUMMARY | 2025-05-13 11:05 | XMS_ITS | Clinical Summary ---
Author Organization [facility] Address [address] [place] [address] Care Team Providers Care Rubber Goods Assembler Name Role Phone Juan F Esparza MD Primary Care Provider [phone] Allergies Active Allergy Reactions Criticality Noted Date [...] (02/20/2023): Added automatically from request for surgery [id number] Abnormal stress test 02/20/2023 Overview (02/20/2023): Added automatically from request for surgery [id number] Encounters Date Type Department Care Team Description 05/13/2025 11:30 AM CDT Office Visit [facility] [address] [place] [address] [address] [address] Minor Kay MD MISHA on CPAP 03/18/2025 9:30 AM CDT Office Visit [facility] [address] [facility] [address] [place] [address] Isaias Ashraf MD Atypical chest pain (Primary Dx); Palpitations; PAC (premature atrial contraction); Essential hypertension; MISHA on CPAP; Lipid screening 03/04/2025 Results Follow-Up [facility] [address] [facility] [address] [place] [phone] Tamera Arana NP CBC with auto differential 02/27/2025 8:15 AM CDT Ancillary Procedure [facility] [address] [place] [address] [address] [place] [address] Episodic weakness; Near syncope 02/18/2025 Telephone [facility] [address] [place] [address] [address] [place] [phone] Tamera Arana NP 02/17/2025 Results Follow-Up [place] [address] [place] [phone] Tamera Arana NP [facility] Mobile Cardiac Telemetry Event Monitor, Transthoracic Echo (TTE) Complete W Doppler/CF 02/14/[address] [place] [phone] Isaias Ashraf MD from Last 3 [...] on file 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 Gender Identity Male 01/24/2023 10:35 AM STRATEGIC COMMUNICATIONS SPECIALIST Sexual Orientation Not on file Obstetrics History [...] CDT Office Visit [facility] [address] [facility] [address] [place] [phone] Minor Kay MD [address] [place] [address] [address] [place] [address] MIHSA on CPAP Health Maintenance Due Date Last Done Comments [...] 03/16/20 23 Medical Devices Implanted Type Area Cup Trimming Machine Operator Device Identifier Shelf Expiration Date Model / Serial / Lot [facility] [facility] Device Closure Vascade Od5 Fr Femoral Artery [id number] - [id number] Implanted:Qty: 1 on 03/16/2023 by Isaias Ashraf MD at [facility] 12/19/2024 700-500DX-0 5U / / [id number] Procedures Procedure Name Priority Date/Time Associated [...] Capillary blood 03/18/2025 9 :10 AM CDT Isaias Ashraf MD POINT OF CARE TEST ORDERABLES Fi nal Result * TRANSTHORACIC ECHO (TTE) COMPLETE W DOPPLER/CF WO CONTRAST (02/27/2025 9:04 AM CDT) LV EF 55 % CONS SCIMAGE Anatomical Region Laterality Modality Ultrasound 02/27/2025 8:17 AM CDT Narrative 02/27/2025 1:40 PM CDT [facility] [address], [place] [address] [address] [facility] [address], [place] [address] P:[phone] P:[phone] Echocardiographic Report Patient Name: BENJAMIN ZAMORA M : 1955 Study Date: 02/27/2025 8:17:54 AM Gender: M Tech: [facility] Location: [place] Ref Provider: TAMERA ARANA Height(Cm): 180 BSA: 2.32 [...] FINDINGS: Interpretation Site: Exam was interpreted at [facility]. Left Ventricle: Normal left ventricular systolic [...] [facility] [address] [facility] [address], [place] [address] [address] [facility] [address], [place], [place] [address] P:[phone] P:[phone] Echocardiographic Report Patient Name: BENJAMIN ZAMORA M : 1955 Study Date: 02/27/2025 8:17:54 AM Gender: M Tech: [facility] Location: [facility] Provider: TAMERA ARANA Height(Cm): 180 BSA: [...] FINDINGS: Interpretation Site: Exam was interpreted at [facility]. Left Ventricle: Normal left ventricular systolic [...] 100 fl EXTERNAL LAB Blood 02/27/2025 us Tamera Arana NP LAB BLOOD ORDERABLES Magdalena wallis Result EXTERNAL LAB from Last 3 Months Insurance [employer] [address] MEDICARE HMO [employer] MEDICARE HMO [facility] MEDICARE HMO Care Teams Rubber Goods Assembler Relationship Specialty Start Date End Date Juan F Esparza MD [address] [id number] PCP - General Family Medicine 02/13/23
== END 2025-05-13 10:01 | disposition home or self-care (01) ==
PROVIDERS: PCP Family Medicine; Visit Provider Nurse Practitioner Family
DX: R19.7 Diarrhea, unspecified (principal)
CPT/HCPCS: 87045; 87324; 87427; 87449

== ENCOUNTER 2025-06-24 01:52 | Day surgery (SDC) | payer MEDICARE, SELFPAY ==
[2025-06-13 09:24] VITALS: BMI 33.2
--- OUTSIDE RECORDS SUMMARY | 2025-06-24 01:55 | XMS_ITS | Data Portability ---
Author Organization [facility] SI (77) Address [address] [facility] [address] [place] [address] Care Team Providers Care Machine Scallop Cutter Name Role Phone NGHIASHAWN BRICE Referring Provider [phone] Assessment No assessment recorded. Plan of Treatment [...] Time 07/31/2024 Sleep Study completed Keith Chung [facility] 08/01/20 24 11:10:10 Imaging Results None recorded. [...] Updated DateTime 07/31/2024 177.8 cm 33.1 kg/m2 962128.84 g Keith Sing[place]arygarret [place] - [place]/[facility] 08/01/2024 10:59:56 Social History None recorded. Functional Status None recorded. Mental Status None recorded. Family History Nothing Reported. Medical History No medical history recorded. Past Encounters Encounter ID Performer Location Encounter Start Date Encounter Closed Date Diagnosis/Indication Diagnosis SNOMED-CT Code Diagnosis ICD10 Code Diagnosis Note [id number] [facility] [place], [facility] [phone] [place] [address] 07/31/2024 20:48:52 08/01/2024 10:58:29 Obstructive sleep apnea of adult 4776351518 103 G47.33 Health Concerns Section Related Observation LastModified by Organization Detai ls LastModified Time None Recorded Concern Status LastModified by Organization Details LastModified Time None Recorded Advance Directives Directive None Recorded Payers Insurance Date Sequence Insurance Name Policy Number Policy Coyne Covered Member ID Coyne Member ID Guarantor Name 08/01/2024 1 [employer] (MEDICARE REPLACEMENT/A DVANTAGE - HMO) Jax Fajardo [id number] Jax Fajardo
--- OUTSIDE RECORDS SUMMARY | 2025-06-24 01:55 | XMS_ITS | Referral Summary ---
Author Organization [facility] Address [address] [place] [address] Care Team Providers Care Diesel Maintenance Technician Name Role Phone Juan F Esparza MD Primary Care Provider [phone] Encounters Date Type Department Care Team Description 05/16/2025 Orders Only [facility] [address] [place] [address] [address] [place] [phone] ProviderTrudy MD 05/13/2025 11:30 AM CDT Office Visit [facility] [address] [place] [phone] Minor Kay MD Hypersomnia with sleep apnea (Primary Dx); Obstructive sleep apnea; Obesity (BMI 30.0-34.9) from Last 3 Months Allergies Active Allergy [...] every 6 (six) hours as needed Active finasteride (PROSCAR) 5 mg tablet Take [...] mouth daily 90 tablet 2 4 Active EPINEPHrine 0.3 mg/0.3 mL auto-injection syringe Active dilTIAZem CD/XR/XT (CARDIZEM CD,DILACOR XR) 120 mg 24 hr capsule Take 1 capsule (120 mg total) by mouth daily 30 capsule 11 5 03/18/20 26 Active Active Problems Problem Noted Date Diagnosed Date Angina pectoris 02/20/2023 Overview (02/20/2023): Added automatically from request for surgery [id number] Abnormal stress test 02/20/2023 Overview (02/20/2023): Added automatically from request for surgery [id number] Social History Tobacco Use Types Packs/Day Years [...] on file 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 Gender Identity Male 01/24/2023 10:35 AM MAINTENANCE LEADER Sexual Orientation Not on file Last Filed [...] 05/13/2025 11:01 AM CDT Plan of Treatment Not on file Medical Devices Implanted Type Area Software Administrator Device Identifier Shelf Expiration Date Model / Serial / Lot [employer] Device Closure Vascade Od5 Fr Femoral Artery [id number] - [id number] Implanted:Qty: 1 on 03/16/2023 by Isaias Ashraf MD at [facility] [employer] 12/19/2024 700-500DX-0 [id number] / / [id number] Procedures Procedure Name Priority Date/Time Associated Diagnosis Comments SLEEP STUDY FINAL REPORT Routine 05/16/2025 1:38 PM CDT from Last 3 Months Results * Sleep Study Final Report (05/16/2025 1:38 PM CDT) us Historical Provider SLEEP CENTER ORDERABLES F inal Result from Last 3 Months Insurance [employer] [address] MEDICARE HMO MEDICARE HMO MEDICARE HMO Care Teams Diesel Maintenance Technician Relationship Specialty Start Date End Date Juan F Esparza MD [address] [address] PCP - General Family Medicine 02/13/23
--- OUTSIDE RECORDS SUMMARY | 2025-06-24 01:55 | XMS_ITS | Clinical Summary ---
Author Organization [facility] Address [address] [place] [address] Care Team Providers Care Family Day Carer Name Role Phone Juan F Esparza MD Primary Care Provider [phone] Allergies Active Allergy Reactions Criticality Noted Date [...] (02/20/2023): Added automatically from request for surgery [id number] Abnormal stress test 02/20/2023 Overview (02/20/2023): Added automatically from request for surgery [id number] Encounters Date Type Department Care Team Description 05/16/[address] [facility] [address] [place] [address] [address] [place] [address] ProviderTrudy MD 05/13/2025 11:30 AM CDT Office 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 Gender Identity Male 01/24/2023 10:35 AM LIFE SCIENCE TAXONOMIST Sexual Orientation Not on file Obstetrics History [...] 05/13/2025 11:01 AM CDT Plan of Treatment Health Maintenance [...] Well Visit 65+ 2022 Covid-19 Vaccine (4 2023-2 5 season) 2024 11/21/2021, 03/06/2021, 02/14/2021 Influenza Vaccine (#1) 2025 9, 09/13/2018, 08/29/2017, Additional history exists Fall Risk Assessment 03/18/2026 03/18/2025, 03/16/20 Medical Devices Implanted Type Area Feather Separator Device Identifier Shelf Expiration Date Model / Serial / Lot [employer] Device Closure Vascade Od5 Fr Femoral Artery [id number] - [id number] Implanted:Qty: 1 on 03/16/2023 by Isaias Ashraf MD at [facility] [employer] 12/19/2024 700-500DX-0 5U / / [id number] Procedures Procedure Name Priority Date/Time Associated Diagnosis Comments SLEEP STUDY FINAL REPORT Routine 05/16/2025 1:38 PM CDT from Last 3 Months Results * Sleep Study Final Report (05/16/2025 1:38 PM CDT) Historical Provider SLEEP CENTER ORDERABLES F inal Result from Last 3 Months Insurance [employer]CIAL [employer] MEDICARE HMO HUMANA MEDICARE HMO HUMANA MEDICARE HMO Care Teams Family Day Carer Relationship Specialty Start Date End Date Juan F Esparza MD [address] [address] PCP - General Family Medicine 02/13/23
[2025-06-24 10:42] VITALS: BP 123/85; PULSE 60; RESP 18; TEMP 36.3; O2SAT 97; BMI 31.7
[2025-06-24] MEDS: LACTATED RINGERS 1,000 ML 150 ML IV CONT (10:49)
--- NOTE | 2025-06-24 11:42 | WPDANESEPPF ---
Anes - Initial Pre Proc Eval Procedure: Operation Date: 06/24/25 12:30 Proposed Procedures p Diagnostic Colonoscopy - Amrik Zaman MD Date/Time: 06/24/25 11:42 Surgeon: Amrik Zaman MD Pre Op Diagnosis: Diarrhea, unspecified Patient Data Age: 69 Gender: M Height: 1.8 m Weight: 103.3 kg Last Vital Signs Temp 97.4 F L 06/24/25 10:42 Pulse 60 06/24/25 10:42 Resp 18 06/24/25 10:42 BP 123/85 06/24/25 10:42 Pulse Ox 97 06/24/25 10:42 O2 Del Method Room Air 06/24/25 10:42 Allergies Allergy/AdvReac Type Severity Reaction Status Date / Time latex Allergy Severe Blister Verified 06/24/25 10:40 cyclobenzaprine Allergy Mild Rash Verified 06/24/25 10:40 cefdinir (From Omnicef) Allergy Swelling Verified 06/24/25 10:46 of Lip/Tongue/Throat Home Medications ?Medication ?Instructions ?Recorded ?Confirmed ?Type rosuvastatin 40 mg tablet 40 mg PO DAILY 02/07/23 06/24/25 History cyanocobalamin (vitamin B-12) 1,000 mcg PO DAILY 02/14/23 06/24/25 History 1,000 mcg tablet tamsulosin 0.4 mg capsule 0.4 mg PO DAILY #90 caps 02/27/23 06/24/25 Rx riboflavin (vitamin B2) 400 mg 400 mg PO DAILY 10/26/23 06/24/25 History tablet finasteride 5 mg tablet 5 mg PO DAILY 11/30/23 06/24/25 History rizatriptan 5 mg tablet See Rx Instructions PO .COMPLEX #9 12/22/23 06/13/25 Rx tabs lisinopril 40 mg tablet 40 mg PO DAILY 06/11/24 06/24/25 History fluticasone propionate 50 1 spray intranasal BID #48 grams 11/11/24 06/24/25 Rx mcg/actuation nasal spray,suspension albuterol sulfate 90 mcg/actuation 2 puff inhalation Q6-8H PRN 11/19/24 06/13/25 Rx aerosol inhaler shortness of breath or wheezing #8.5 grams meloxicam 15 mg tablet 15 mg PO DAILY PRN pain #90 tabs 11/19/24 06/13/25 Rx pantoprazole 40 mg tablet,delayed 40 mg PO QAM #90 tabs 11/19/24 06/24/25 Rx release azelastine 137 mcg (0.1 %) nasal See Rx Instructions .Route 04/07/25 06/24/25 Rx spray .COMPLEX #90 mL dicyclomine 20 mg tablet 20 mg PO TID PRN abdominal pain 05/03/25 06/13/25 Rx #14 tabs tizanidine 2 mg tablet 2 mg PO BID PRN muscle spasticity 06/09/25 06/13/25 Rx #60 tabs sodium sul 1.479 gram-potas ch See Rx Instructions PO PER PKG DIR 06/11/25 06/24/25 Rx 0.188 gram-magnes sul 0.225 gram #24 tabs tablet (Sutab) colestipol 1 gram tablet 1 g PO BID PRN diarrhea #60 tabs 06/19/25 06/24/25 Rx Patient hx anesthesia problems: none Family hx anesthesia problems: none Results Review: All pre-operative results and documents have been reviewed as part of the pre-operative evaluation. [facility] Past Medical History Medical History Liver hemangioma Obesity (BMI 30-39.9) Diarrhea Chest tightness Acute bronchitis BMI 33.0-33.9,adult Plant allergic contact dermatitis Migraine with aura and with status migrainosus, not intractable optic migraine Allergic drug reaction (11/24/23) Omnicef Ocular headache (~09/2023) At low risk for fall Chronic bilateral low back pain without sciatica BMI 32.0-32.9,adult Finger wound, simple, open X-ray of the left little finger 04/14/2023 with no foreign body. UTI (urinary tract infection) Bilateral chronic knee pain Encounter for prostate cancer screening PSA 0.69 on 07/20/2023. PSA 0.8 on 10/01/2024. Encounter for screening for vascular disease (01/04/23) lifeline screening 01/04/2023 with normal abdominal aorta. Normal CY at 1.11 on the left and 1.16 on the right. Bone density normal. Chest pain (~01/04/23) EKG 01/05/2023 with normal sinus rhythm. stress sestamibi 02/13/2023 with no EKG changes. Nuclear scan with ejection fraction of 61% with a small apical/ inferior lateral fixed defect suggestive of prior infarction. cardiac catheterization 02/13/2023 with no coronary artery disease and ejection fraction 60%. Echocardiogram 05/11/2023 with mild diastolic dysfunction. Encounter for HCV screening test for low risk patient (11/10/22) screening for hepatitis C by house call on 11/10/2022 was negative. Hematospermia (~06/2022) Obesity (BMI 30.0-34.9) Acute non-recurrent maxillary sinusitis Adverse drug reaction (~02/09/22) Male erectile dysfunction, unspecified Testosterone 530 with free testosterone 82.9 on 12/21/2024. Fungal nail infection Personal history of colonic polyps Colon cancer screening Dyshidrotic eczema (~06/23/21) Pain of left great toe Aortic atherosclerosis Fatty infiltration of liver AST 15 with ALT 12 on 07/18/2022. AST 12, ALT 10 on 01/24/2023. fatty liver noted on CT of the abdomen and pelvis on 04/03/2023. GGT 13, AST 16, ALT 16 on 07/20/2023. AST 24, ALT 21 on 10/01/2024. Colitis, acute COPD (chronic obstructive pulmonary disease) (03/22/21) mild obstructive airway disease with air trapping on PFT on 03/22/2021 Dyspnea on exertion Echocardiogram 05/11/2023 with normal ejection fraction and mild inferior posterior hypokinesis of the left ventricle. COVID-19 (11/09/20) Loss, sense of, smell Exposure to COVID-19 virus BMI 31.0-31.9,adult Lumbar back pain with radiculopathy affecting left lower extremity Hypertension Left hip pain Adhesive capsulitis of left shoulder BMI 29.0-29.9,adult Psoriasis Plantar fasciitis, bilateral Chronic left shoulder pain Chronic bilateral low back pain with bilateral sciatica Polyp of colon adenomatous polyp 2017. normal colonoscopy 09/23/[address] Bello. Recheck in 5 years. Nocturia PSA normal at 0.9 on 07/18/2022. Vitamin D deficiency, unspecified Level normal at 33 on 07/18/2022. Level normal at 48 on 07/20/2023. Vitamin B12 deficiency anemia Normal at 995 with hemoglobin 15.3 on 07/18/2022. Normal at 1072 with hemoglobin 15.2 on 07/20/2023. Seasonal allergic rhinitis Chronic depression GERD with esophagitis gastritis on EGD on 11/12/2019 Irritable bowel syndrome with diarrhea Depression Abnormal fasting glucose Glucose 112 with hemoglobin A1c 5.7 on 11/22/2022. Fasting glucose 101 on 01/24/2023. Fasting glucose 98 with hemoglobin A1c 5.8 on 07/20/2023. Glucose 107, hemoglobin 5.9, microalbumin ratio less than 5.5 with GFR 60 on 10/01/2024. Surgical History Surgical History History of cholecystectomy (~01/2010) Previous back surgery (~02/2018) Family History Family History Mother Family history of diabetes mellitus in first degree relative Father , rx drug overdose Depression Grandparent Cerebrovascular accident Heart disease Grandparent Leukemia Cancer Grandparent Depression Suicide Sibling Diabetes mellitus Sibling Autoimmune disorder Other Arthritis Hypertension Social History Social History Smoking packs per day: 2.5 Smoking cigarettes per day: 50.0 Years smoked: 45 Smoking pack-years: 112.50 Smoking status: Former smoker Tobacco type: cigarettes Smoking end date: 11/27/09 Alcohol intake: current Drinks per week: 2 Alcohol use details: Rarely Substance use: never Substance use type: does not use Lack of Transportation: No Lack of Food: Never True Current Housing: I Have Housing Concerned About Future Housing: No Difficulty Paying Gas/Electric Bills: No Difficulty Paying for Meds: No Currently Unemployed: No Education: High School Diploma/GED Difficulty w/ Childcare or Family Care: No Living arrangements: with family Gender identity (if verbalized by the patient): Male Spiritual care concerns: No Anes - Eval Final PreProcedure Day of Procedure 06/24/25 11:42 Patient weight: overweight Heart: regular rate and rhythm Lungs: decreased breath sounds Neurological: alert and oriented Last oral intake: >/= 8 hours ASA classification: IV Emergent: no Anesthetic plan: proceed Anesthesia type and monitoring: general GIVS and standard monitoring Results Review: All pre-operative results and documents have been reviewed as part of the pre-operative evaluation. Informed Consent: The patient's anesthetic plan and its attendant risks and benefits were discussed with the patient/family/POA. Questions were solicited and answers provided to the satisfaction of the patient/family/POA.
--- NOTE | 2025-06-24 11:53 | WPDHPUPDATE1 ---
History and Physical Update Update Date/Time: 06/24/25 11:53 History and Physical has been reviewed, including an updated exam of the patient. There are NO changes in the patient's condition. Risks, benefits, and alternatives have been discussed and questions answered. Patient agrees to proceed with procedure.
--- NOTE | 2025-06-24 12:07 | S_PTH ---
PATIENT: Jax Fajardo LOC: NIRAJ Hernández#:[id number] AGE/SX: 69/M ROOM: RE06/24/[address]: Amrik Zaman MD : 1955 BED: DIS: 06/24/2025 SPEC #: [id number] RECD: 06/24/25 12:36 STATUS: ANTONY REKashmir #: [id number] VONDA: 06/24/25 12:[address]: Amrik Zaman DEPT: [facility] Surgical RECD BY: Claudia Jimenes ENTERED: 06/24/25 12:36 SP TYPE: Surgical OTHR DR: Juan F Esparza MD Tissues: A - Colon Polypectomy Procedures: Hematoxylin and Eosin Stain Gross and Microscopic Level 4
[2025-06-24 12:10] VITALS: BP 115/74; PULSE 75; RESP 21; O2SAT 92
[2025-06-24 12:20] VITALS: BP 120/78; PULSE 72; RESP 25; O2SAT 97
[2025-06-24 12:30] VITALS: BP 120/77; PULSE 68; RESP 17; O2SAT 97
== END 2025-06-24 12:41 | disposition home or self-care (01) ==
PROVIDERS: PCP Family Medicine; Referring Provider Nurse Practitioner Family; Visit Provider Internal Medicine Gastroenterology
PROC: 0DJD8ZZ Inspection of Lower Intestinal Tract, Via Natural or Artificial Opening Endoscopic (ICD-10-PCS; CPT 45378; principal; 2025-06-24 12:30)
DX: K52.832 Lymphocytic colitis (principal); J44.9 Chronic obstructive pulmonary disease, unspecified; I10 Essential (primary) hypertension; E55.9 Vitamin D deficiency, unspecified; E53.8 Deficiency of other specified B group vitamins; L30.1 Dyshidrosis [pompholyx]; N52.9 Male erectile dysfunction, unspecified; I70.0 Atherosclerosis of aorta; L40.9 Psoriasis, unspecified; F32.A Depression, unspecified; G89.29 Other chronic pain; M54.50 Low back pain, unspecified; M25.562 Pain in left knee; M25.561 Pain in right knee; M25.512 Pain in left shoulder; Z79.51 Long term (current) use of inhaled steroids; Z98.890 Other specified postprocedural states; Z90.49 Acquired absence of other specified parts of digestive tract; Z98.1 Arthrodesis status; Z87.891 Personal history of nicotine dependence; Z86.0100 Personal history of colon polyps, unspecified; Z87.19 Personal history of other diseases of the digestive system; Z80.6 Family history of leukemia; Z82.49 Family history of ischemic heart disease and other diseases of the circulatory system
CPT/HCPCS: 45380; 88305; J2003; J2704; J7120

== ENCOUNTER 2025-10-07 06:55 | Outpatient (CLI) | payer MEDICARE, SELFPAY ==
[2025-10-07 07:28] LABS: Hematocrit 43.8 % (42.0-52.0); Hemoglobin 14.6 g/dL (14.0-18.0); Immature Granulocyte Percent A 0.1 % (0-0.5); Lymphocytes Absolute Auto 1.99 K/mm3 (0.9-3.2); Mean Corpuscular HGB Conc 33.3 g/dl (32-36); Mean Corpuscular Hemoglobin 28.9 pg (26-34); Mean Corpuscular Volume 86.7 fl (80-100); Nucleated Red Blood Cells Absolute Auto 0.000 K/mm3 (0.0-0.012); Nucleated Red Blood Cells Perc 0.0 % (0.0-0.2); Platelet Count Result 247 k/mm3 (150-375); Red Blood Count 5.05 M/mm3 (4.6-6.20); White Blood Count 6.9 K/mm3 (4.5-10.0)
[2025-10-07 07:35] LABS: Hemoglobin A1C 6.1 % (<5.7)
[2025-10-07 07:49] LABS: Alanine Aminotransferase 19 U/L (6-50); Albumin Level 3.7 g/dL (3.5-5.1); Alkaline Phosphatase 61 U/L (38-126); Anion Gap 4 mmol/L (4-12); Aspartate Amino Transferase 23 U/L (17-59); Bilirubin,Total 0.6 mg/dL (0.2-1.3); Blood Urea Nitrogen 12 mg/dL (9-20); Calcium 8.3 mg/dL (8.4-10.2); Carbon Dioxide 27 mmol/L (22-30); Chloride 107 mmol/L (98-107); Cholesterol 124 mg/dL (0-200); Estimated Glomerular Filt Rate > 60; Glucose 105 mg/dL (65-110); HDL Direct 38 mg/dL; Potassium 4.3 mmol/L (3.4-5.0); Sodium 138 mmol/L (137-145); Total Protein 6.8 g/dL (6.3-8.2); Triglycerides 227 mg/dL (<150)
[2025-10-07 07:59] LABS: Add Urine Microscopic? YES; Appearance Urine Clear (Clear); Glucose Urine UA Negative (Negative); Leukocyte Esterase Ur Negative LEU/UL (Negative); Nitrate Urine Negative (Negative); Specific Grav Ur 1.028 (1.001-1.035)
[2025-10-07 09:06] LABS: Prostate Specific Antigen 0.2 ng/mL (< OR = 4.0); Thyroid Stimulating Hormone 0.860 uIU/mL (0.465-4.680)
[2025-10-07 09:42] LABS: Vitamin B12 976.0 pg/mL (239-931)
[2025-10-08 10:09] LABS: GGT 12 IU/L (0-65)
[2025-10-15 23:07] LABS: 1,25-Dihydroxy, Vitamin D-2 <10 pg/mL (.); 1,25-Dihydroxy, Vitamin D-3 56 pg/mL (.); Total 1,25-Dihydroxy,Vitamin D 57 pg/mL (.)
== END 2025-10-07 06:56 | disposition home or self-care (01) ==
PROVIDERS: PCP Family Medicine; Visit Provider Family Medicine
DX: D51.9 Vitamin B12 deficiency anemia, unspecified (principal); E78.2 Mixed hyperlipidemia; R73.01 Impaired fasting glucose; R36.1 Hematospermia; Z12.5 Encounter for screening for malignant neoplasm of prostate; K76.0 Fatty (change of) liver, not elsewhere classified; I10 Essential (primary) hypertension; E55.9 Vitamin D deficiency, unspecified
CPT/HCPCS: 36415; 80048; 80061; 80076; 81001; 82607; 82652; 82977; 83036; 84153; 84443; 85025; G0103

== ENCOUNTER 2025-10-16 15:30 | Emergency (ER) | payer MEDICARE, SELFPAY ==
--- NOTE | ~2025-10-16 | XR_ITS ---
EXAMINATION: XR hip LT 2V w AP pelvis DATE: 10/16/2025 16:59 INDICATION: Left hip pain. No history of trauma. TECHNIQUE: 4 views of pelvis and left hip were obtained. COMPARISON: None. FINDINGS: No acute bony lesions at the left hip. 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 Mild bilateral sacroiliac arthritis. IMPRESSION: 1. No acute findings. 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 Reviewed, dictated and finalized at location T. MAINTENANCE TECHNICIAN
[2025-10-16 16:40] VITALS: BP 132/82; PULSE 109; RESP 20; TEMP 36.6; O2SAT 96
--- OUTSIDE RECORDS SUMMARY | 2025-10-16 18:09 | XMS_ITS | Data Portability ---
Author Organization [facility] Davis SI (34) Address [address] [facility] [address] [place] [address] Care Team Providers Care Curriculum Counselor Name Role Phone NGHIASHAWN BRICE Referring Provider Assessment No assessment recorded. Plan [...] Time 07/31/2024 Sleep Study completed Keith Chung [facility] 08/01/20 24 11:10:10 Imaging Results None recorded. [...] Updated DateTime 07/31/2024 177.8 cm 33.1 kg/m2 724101.84 g Keith Chung [place] [facility] 08/01/2024 10:59:56 Social History None recorded. Functional Status None recorded. Mental Status None recorded. Family History Nothing Reported. Medical History No medical history recorded. Past Encounters Encounter ID Performer Location Encounter Start Date Encounter Closed Date Diagnosis/Indication Diagnosis SNOMED-CT Code Diagnosis ICD10 Code Diagnosis IMO Codes Diagnosis Note [id number] [facility] [place] [phone] [place] [address] 07/31/2024 20:48:52 08/01/2024 10:58:29 Obstructive sleep apnea of adult 9331854692 103 G47.33 Health Concerns Section Related Observation LastModified by Organization Detai ls LastModified Time None Recorded Concern Status LastModified by Organization Details LastModified Time None Recorded Advance Directives Directive None Recorded Payers Insurance Date Sequence Insurance Name Policy Number Policy Coyne Covered Member ID Coyne Member ID Guarantor Name 08/01/2024 1 [employer] (MEDICARE REPLACEMENT/A DVANTAGE - HMO) Jax Fajardo [id number] Jax Fajardo
--- OUTSIDE RECORDS SUMMARY | 2025-10-16 18:09 | XMS_ITS | Clinical Summary ---
Author Organization [facility] [place], [place] Address [address] [place] [address] Care Team Providers Care Hazardous Materials Waste Technician Name Role Phone Juan F Esparza MD Primary Care Provider [phone] [phone] Allergies Active Allergy Reactions Criticality Noted Date [...] total) by mouth once as needed Active EPINEPHrine 0.3 mg/0.3 mL auto-injection syringe Active dilTIAZem CD/XR/XT (CARDIZEM CD,DILACOR XR) 120 mg 24 hr capsule Take 1 capsule (120 mg total) by mouth daily 30 capsule 11 5 03/18/20 26 Active rosuvastatin (CRESTOR) 40 mg tablet TAKE 1 TABLET EVERY DAY 90 tablet 1 5 Active lisinopriL (PRINIVIL,ZESTR IL) 40 mg tablet TAKE 1 TABLET EVERY DAY 90 tablet 1 5 Active Active Problems Problem Noted Date Diagnosed Date Angina pectoris 02/20/2023 Overview (02/20/2023): Added automatically from request for surgery [id number] Abnormal stress test 02/20/2023 Overview (02/20/2023): Added automatically from request for surgery [id number] Encounters Date Type Department Care Team Description 09/29/2025 8:00 AM PHYSICIAN SUPPORT COORDINATOR Office Visit [facility] [place] Neurology [address] [address] Minor Kay MD MISHA (obstructive sleep apnea) (Primary Dx); Hypersomnia with sleep apnea; Obesity (BMI 30.0-34.9) 08/08/2025 Telephone [facility] [place] Neurology [address] [place] [address] Minor Kay MD 08/08/2025 Telephone [facility] [place] Neurology [address] [place] [address] Minor Kay MD from Last 3 Months Surgical History [...] you have a drink containing alc ohol? Monthly or less 09/29/2025 Average Number of Drinks Not on file 025 Frequency of Binge Drinking Less than monthly Personal Safety Answer Date Recorded Have you ever been in or are you currently in a harmful physical or emotional relationship or is someone making you feel afraid or unsafe? Denies 04/13/2023 Sex and Gender Information Value Date Recorded Sex Assigned at Not on file Legal Sex Male 8:01 PM PHYSICIAN SUPPORT COORDINATOR Gender Identity Male 01/24/2023 10:35 AM PHYSICIAN SUPPORT COORDINATOR Sexual Orientation Not on file Last Filed Vital Signs Vital Sign Reading Time Taken Comments Blood Pressure 106/64 09/29/2025 7:55 AM PHYSICIAN SUPPORT COORDINATOR Pulse 79 09/29/2025 7:55 AM PHYSICIAN SUPPORT COORDINATOR Temperature 36.7 C (98 F) 04/13/2023 9:22 AM CDT Respiratory Rate 18 05/13/2025 11:01 AM CDT Oxygen Saturation 91% 09/29/2025 7:55 AM PHYSICIAN SUPPORT COORDINATOR Inhaled Oxygen Concentration - - Weight 108.4 kg (239 lb) 09/29/2025 7:55 AM PHYSICIAN SUPPORT COORDINATOR Height 180.3 cm (5' 10.98) 05/13/2025 11:01 AM CDT Body Mass Index 33.35 05/13/2025 11:01 AM CDT Plan of Treatment Health Maintenance Due Date Last Done Comments Colon Cancer Screening-Colonoscopy 1955 Depression Screening 1957 Hepatitis C Screening 1957 Prostate Cancer Screening-PSA 1957 DTaP/Tdap/Td Vaccine (1 - Tdap) 1968 Hepatitis B Screening 1975 Pneumococcal vaccine 65+ (1 of 2 - PCV) 1976 Zoster Vaccine (2 of 3) 10/24/2017 08/29/2017 Abdominal Aortic Aneurysm (A AA) Screen 2022 Well Visit 65+ 2022 Covid-19 Vaccine (2024-2 6 season) 2025 11/21/2021, 03/06/2021, 02/14/2021 Influenza Vaccine (#1) 2025 9, 09/13/2018, 08/29/2017, Additional history exists Fall Risk Assessment 03/18/2026 03/18/2025, 03/16/20 Medical Devices Implanted Type Area Tow Feeder Device Identifier Shelf Expiration Date Model / Serial / Lot [employer] Device Closure Vascade Od5 Fr Femoral Artery [id number] - [id number] Implanted:Qty: 1 on 03/16/2023 by Isaias Ashraf MD at [facility] [employer] 12/19/2024 [id number] / / [id number] 0A Insurance COMMERCIAL GENERIC [address] MEDICARE HMO HUMANA MEDICARE HMO HUMANA MEDICARE HMO Care Teams Hazardous Materials Waste Technician Relationship Specialty Start Date End Date Juan F Esparza MD [address] [address] PCP - General Family Medicine 02/13/23
[2025-10-16 19:05] VITALS: BP 152/83; PULSE 103; RESP 18; TEMP 37.2; O2SAT 96
[2025-10-16] MEDS: ACETAMINOPHEN 500 MG TABLET 1000 MG PO (21:38)
[2025-10-16] MEDS: oxyCODONE HCL (*CRX) 5 MG TAB IR PO (21:39)
[2025-10-16 22:30] VITALS: BP 144/82; PULSE 94; RESP 17; TEMP 37.5; O2SAT 100
[2025-10-16 22:33] VITALS: BP 144/82; PULSE 94; RESP 17; TEMP 37.5; O2SAT 100
--- NOTE | 2025-10-17 03:07 | ED.GENADULT ---
HPI - General Adult General Chief complaint: Extremity Problem,Nontraumatic Stated complaint: left hip pain Time Seen by Provider: 10/16/25 20:37 History of Present Illness HPI narrative: 70-year-old male presenting with right hip pain. Patient reports 2 days ago he was doing housework going up and down a ladder and reports pain began after this. He states that he is having issues walking due to the pain being so severe. Denies numbness/tingling, fevers/chills, headache, nausea/vomiting, saddle anesthesia, and urinary/bowel incontinence/retention. Related Data Home Medications ?Medication ?Instructions ?Recorded ?Confirmed ?Last Taken ?Type rosuvastatin 40 mg tablet 40 mg PO DAILY 02/07/23 09/18/25 06/23/25 History cyanocobalamin (vitamin B-12) 1,000 mcg PO DAILY 02/14/23 09/18/25 06/23/25 History 1,000 mcg tablet riboflavin (vitamin B2) 400 mg 400 mg PO DAILY 10/26/23 09/18/25 06/23/25 History tablet finasteride 5 mg tablet 5 mg PO DAILY 11/30/23 09/18/25 06/23/25 History lisinopril 40 mg tablet 40 mg PO DAILY 06/11/24 09/18/25 06/23/25 History Allergies Allergy/AdvReac Type Severity Reaction Status Date / Time latex Allergy Severe Blister Verified 10/16/25 22:33 cyclobenzaprine Allergy Mild Rash Verified 10/16/25 22:33 cefdinir (From Omnicef) Allergy Swelling Verified 10/16/25 22:33 of Lip/Tongue/Throat Review of Systems Review of Systems: All systems reviewed & are unremarkable except as noted in HPI and below [facility] Past Medical History Medical History (Updated 10/17/25 @ 00:01 by Background Daemon) Abdominal bloating Lymphocytic colitis Liver hemangioma Obesity (BMI 30-39.9) Diarrhea Chest tightness Acute bronchitis BMI 33.0-33.9,adult Plant allergic contact dermatitis Migraine with aura and with status migrainosus, not intractable optic migraine Allergic drug reaction (11/24/23) Omnicef Ocular headache (~09/2023) At low risk for fall Chronic bilateral low back pain without sciatica BMI 32.0-32.9,adult Finger wound, simple, open X-ray of the left little finger 04/14/2023 with no foreign body. UTI (urinary tract infection) Bilateral chronic knee pain Encounter for prostate cancer screening PSA 0.69 on 07/20/2023. PSA 0.8 on 10/01/2024. Encounter for screening for vascular disease (01/04/23) lifeline screening 01/04/2023 with normal abdominal aorta. Normal CY at 1.11 on the left and 1.16 on the right. Bone density normal. Chest pain (~01/04/23) EKG 01/05/2023 with normal sinus rhythm. stress sestamibi 02/13/2023 with no EKG changes. Nuclear scan with ejection fraction of 61% with a small apical/ inferior lateral fixed defect suggestive of prior infarction. cardiac catheterization 02/13/2023 with no coronary artery disease and ejection fraction 60%. Echocardiogram 05/11/2023 with mild diastolic dysfunction. Encounter for HCV screening test for low risk patient (11/10/22) screening for hepatitis C by house call on 11/10/2022 was negative. Hematospermia (~06/2022) Obesity (BMI 30.0-34.9) Acute non-recurrent maxillary sinusitis Adverse drug reaction (~02/09/22) Male erectile dysfunction, unspecified Testosterone 530 with free testosterone 82.9 on 12/21/2024. Fungal nail infection Personal history of colonic polyps Colon cancer screening Dyshidrotic eczema (~06/23/21) Pain of left great toe Aortic atherosclerosis Fatty infiltration of liver AST 15 with ALT 12 on 07/18/2022. AST 12, ALT 10 on 01/24/2023. fatty liver noted on CT of the abdomen and pelvis on 04/03/2023. GGT 13, AST 16, ALT 16 on 07/20/2023. AST 24, ALT 21 on 10/01/2024. Colitis, acute COPD (chronic obstructive pulmonary disease) (03/22/21) mild obstructive airway disease with air trapping on PFT on 03/22/2021 Dyspnea on exertion Echocardiogram 05/11/2023 with normal ejection fraction and mild inferior posterior hypokinesis of the left ventricle. COVID-19 (11/09/20) Loss, sense of, smell Exposure to COVID-19 virus BMI 31.0-31.9,adult Lumbar back pain with radiculopathy affecting left lower extremity Hypertension Left hip pain Adhesive capsulitis of left shoulder BMI 29.0-29.9,adult Psoriasis Plantar fasciitis, bilateral Chronic left shoulder pain Chronic bilateral low back pain with bilateral sciatica Polyp of colon adenomatous polyp 2017. normal colonoscopy 09/23/[address] Bello. Recheck in 5 years. Nocturia PSA normal at 0.9 on 07/18/2022. Vitamin D deficiency, unspecified Level normal at 33 on 07/18/2022. Level normal at 48 on 07/20/2023. Vitamin B12 deficiency anemia Normal at 995 with hemoglobin 15.3 on 07/18/2022. Normal at 1072 with hemoglobin 15.2 on 07/20/2023. Seasonal allergic rhinitis Chronic depression GERD with esophagitis gastritis on EGD on 11/12/2019 Irritable bowel syndrome with diarrhea Depression Abnormal fasting glucose Glucose 112 with hemoglobin A1c 5.7 on 11/22/2022. Fasting glucose 101 on 01/24/2023. Fasting glucose 98 with hemoglobin A1c 5.8 on 07/20/2023. Glucose 107, hemoglobin 5.9, microalbumin ratio less than 5.5 with GFR 60 on 10/01/2024. Surgical History Surgical History History of cholecystectomy (~01/2010) Previous back surgery (~02/2018) Family History Family History Mother Family history of diabetes mellitus in first degree relative Father , rx drug overdose Depression Grandparent Cerebrovascular accident Heart disease Grandparent Leukemia Cancer Grandparent Depression Suicide Sibling Diabetes mellitus Sibling Autoimmune disorder Other Arthritis Hypertension Social History Social History Smoking packs per day: 2.5 Smoking cigarettes per day: 50.0 Years smoked: 45 Smoking pack-years: 112.50 Smoking status: Former smoker Tobacco type: cigarettes Smoking end date: 11/27/09 Alcohol intake: current Drinks per week: 2 Alcohol use details: Rarely Substance use: never Substance use type: does not use Lack of Transportation: No Lack of Food: Never True Current Housing: I Have Housing Concerned About Future Housing: No Difficulty Paying Gas/Electric Bills: No Difficulty Paying for Meds: No Currently Unemployed: No Education: High School Diploma/GED Difficulty w/ Childcare or Family Care: No Living arrangements: with family Gender identity (if verbalized by the patient): Male Spiritual care concerns: No Exam Narrative: GENERAL: Well-appearing, well-nourished, and in no acute distress. HEAD: Normocephalic, atraumatic. EYES: PERRLA and EOMI. ENT: Nares clear, no rhinorrhea or epistaxis. Mucous membranes moist. Oropharynx without tonsillar hypertrophy exudate or other lesions. Bilateral TMs pearly stewart non-bulging NECK: Supple. No adenopathy or masses. No carotid bruits or JVD CHEST: Clear to auscultation. No respiratory distress. No wheezes rales or rhonchi HEART: Regular rate and rhythm. No murmur heard. Normal peripheral pulses. ABDOMEN: Soft, nontender, nondistended, normal active bowel sounds. HIP: Tenderness over the lateral aspect of the right hip. EXTREMITIES: Normal range of motion. No edema. 5/5 strength in all extremities. SKIN: Warm, dry, no rash. NEURO: No focal deficits. Alert and oriented x3. Sensation intact. PSYCH: Normal mood and affect Course Vital Signs Vital signs: Vital Signs Temperature 97.8 F 10/16/25 16:40 Pulse Rate 109 H 10/16/25 16:40 Respiratory Rate 20 10/16/25 16:40 Blood Pressure 132/82 10/16/25 16:40 Pulse Oximetry 96 10/16/25 16:40 Oxygen Delivery Room Air 10/16/25 16:40 Temperature 99.5 F 10/16/25 22:33 Pulse Rate 94 10/16/25 22:33 Respiratory Rate 17 10/16/25 22:33 Blood Pressure 144/82 H 10/16/25 22:33 Pulse Oximetry 100 10/16/25 22:33 Oxygen Delivery Room Air 10/16/25 16:40 Medical Decision Making MDM Narrative Medical decision making narrative: 70-year-old male presenting with right hip pain. Patient reports 2 days ago he was doing housework going up and down a ladder and reports pain began after this. He states that he is having issues walking due to the pain being so severe. Denies numbness/tingling, fevers/chills, headache, nausea/vomiting, saddle anesthesia, and urinary/bowel incontinence/retention. During my exam patient was able to stand, turn and pivot without problem. He reported no midline lumbar tenderness. Hip x-ray demonstrates no acute findings. Moderate osteoarthritis noted for which patient is aware. Administered muscle relaxer, Tylenol, and oxycodone which improved patient's pain immensely. Normal neurologic exams. No red flag symptoms. Patient agrees with discussion and after shared medical decision making agrees with plan of care. Sent home with pain regimen. All questions were answered to the patient's satisfaction. The patient is appropriate for outpatient treatment and follow-up. Given reasons to return. Medical Records Medical records reviewed: Yes I reviewed the external patient's medical records. Vital Signs Vital Signs: Vital Signs Temperature 97.8 F 10/16/25 16:40 Pulse Rate 109 H 10/16/25 16:40 Respiratory Rate 20 10/16/25 16:40 Blood Pressure 132/82 10/16/25 16:40 Pulse Oximetry 96 10/16/25 16:40 Oxygen Delivery Room Air 10/16/25 16:40 Temperature 99.5 F 10/16/25 22:33 Pulse Rate 94 10/16/25 22:33 Respiratory Rate 17 10/16/25 22:33 Blood Pressure 144/82 H 10/16/25 22:33 Pulse Oximetry 100 10/16/25 22:33 Oxygen Delivery Room Air 10/16/25 16:40 Imaging Data Attestation: I personally reviewed and interpreted this imaging study as follows: Radiologist's impression: ITS Impressions Hip/Pelvis X-Ray 10/16/25 17:01 IMPRESSION: 1. No acute findings. 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 Discharge Plan Discharge Clinical Impression: Acute hip pain Patient Disposition: Home Condition: Stable Instructions: Hip Pain (ED) Additional Instructions: Return to the emergency department if you experience fever, chest pain, shortness of breath, abdominal pain with nausea and vomiting, weakness, numbness/tingling, or any other symptoms that are concerning to you. Follow up with primary care doctor Patient Language: French Prescriptions: New oxycodone 5 mg capsule 5 mg PO Q6H PRN (Reason: pain) Qty: 14 0RF No Action finasteride 5 mg tablet 5 mg PO DAILY cyanocobalamin (vitamin B-12) 1,000 mcg tablet 1,000 mcg PO DAILY lisinopril 40 mg tablet 40 mg PO DAILY colestipol 1 gram tablet 1 g PO BID PRN (Reason: diarrhea) Qty: 60 5RF Rx Instructions: Take 1-2 tablets daily as needed for diarrhea. Xifaxan 550 mg tablet 550 mg PO TID 14 Days Qty: 42 2RF dicyclomine 20 mg tablet 20 mg PO TID PRN (Reason: abdominal pain) Qty: 14 0RF rosuvastatin 40 mg tablet 40 mg PO DAILY tamsulosin 0.4 mg capsule 0.4 mg PO DAILY Qty: 90 3RF riboflavin (vitamin B2) 400 mg tablet 400 mg PO DAILY rizatriptan 5 mg tablet See Rx Instructions PO .COMPLEX Qty: 9 5RF Rx Instructions: take 1 tablet at onset of headache; if no relief, may repeat 1 tablet after at least 2 hrs PO meloxicam 15 mg tablet 15 mg PO DAILY PRN (Reason: pain) Qty: 90 3RF albuterol sulfate 90 mcg/actuation HFA aerosol inhaler 2 puff inhalation Q6-8H PRN (Reason: shortness of breath or wheezing) Qty: 8.5 11RF azelastine 137 mcg (0.1 %) spray,non-aerosol See Rx Instructions .ROUTE .COMPLEX Qty: 90 1RF Dose Instruction: INSTILL 1 SPRAY INTO EACH NOSTRIL EVERY 12 HOURS Rx Instructions: INSTILL 1 SPRAY INTO EACH NOSTRIL EVERY 12 HOURS budesonide 3 mg capsule,delayed,extend.release 3 mg PO QAM Qty: 30 3RF tizanidine 2 mg tablet 2 mg PO BID PRN (Reason: muscle spasticity) Qty: 60 2RF fluticasone propionate 50 mcg/actuation spray,suspension 1 spray intranasal BID Qty: 48 3RF Rx Instructions: administer into each nostril pantoprazole 40 mg tablet,delayed release (DR/EC) 40 mg PO QAM Qty: 90 3RF azithromycin 250 mg tablet See Rx Instructions PO .COMPLEX Qty: 6 0RF Rx Instructions: For 250 mg dose pack: take 500 mg today (day 1), then 250 mg for 4 days (days 2-5) PO prednisone 20 mg tablet 40 mg PO DAILY Qty: 10 0RF Rx Instructions: hold meloxicam while on prednisone Follow-up/Referrals: Juan F Esparza MD [Primary Care Provider, Family Practice]
== END 2025-10-16 22:35 | disposition home or self-care (01) ==
PROVIDERS: PCP Family Medicine
DX: M25.551 Pain in right hip (principal); I70.0 Atherosclerosis of aorta; I10 Essential (primary) hypertension; J44.9 Chronic obstructive pulmonary disease, unspecified; E66.9 Obesity, unspecified; Z68.32 Body mass index [BMI] 32.0-32.9, adult; E55.9 Vitamin D deficiency, unspecified; L40.9 Psoriasis, unspecified; D51.9 Vitamin B12 deficiency anemia, unspecified; K21.9 Gastro-esophageal reflux disease without esophagitis; K58.0 Irritable bowel syndrome with diarrhea; Z86.16 Personal history of COVID-19; Z86.0100 Personal history of colon polyps, unspecified; Z87.440 Personal history of urinary (tract) infections; Z87.891 Personal history of nicotine dependence; Z90.49 Acquired absence of other specified parts of digestive tract; Z79.899 Other long term (current) drug therapy
CPT/HCPCS: 73502; 99283; A9270

== ENCOUNTER 2025-10-17 11:01 | Outpatient (CLI) | payer MEDICARE, SELFPAY ==
--- OUTSIDE RECORDS SUMMARY | 2025-10-17 11:07 | XMS_ITS | Clinical Summary ---
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 Installer Name Role Phone Juan F Esparza MD Primary Care Provider [phone] Allergies Active Allergy Reactions Criticality Noted Date [...] (02/20/2023): Added automatically from request for surgery [id number] Abnormal stress test 02/20/2023 Overview (02/20/2023): Added automatically from request for surgery [id number] Encounters Date Type Department Care Team Description 09/29/2025 8:00 AM EXECUTIVE RELATIONS SPECIALIST [place] [facility] [place] [address], [place] [address] Minor Kay MD MISHA (obstructive sleep apnea) (Primary Dx); Hypersomnia with sleep apnea; Obesity (BMI 30.0-34.9) 08/08/2025 Telephone [facility] [address] [place] [address] Minor Kay MD 08/08/2025 Telephone [facility] [place] [address] [place] [address] Minor Kay MD from Last [...] on file Legal Sex Male 8:01 PM EXECUTIVE RELATIONS SPECIALIST Gender Identity Male 01/24/2023 10:35 AM EXECUTIVE RELATIONS SPECIALIST Sexual Orientation Not on file Last Filed Vital Signs Vital Sign Reading Time Taken Comments Blood Pressure 106/64 09/29/2025 7:55 AM EXECUTIVE RELATIONS SPECIALIST Pulse 79 09/29/2025 7:55 AM EXECUTIVE RELATIONS SPECIALIST Temperature 36.7 C (98 F) 04/13/2023 9:22 AM CDT Respiratory Rate 18 05/13/2025 11:01 AM CDT Oxygen Saturation 91% 09/29/2025 7:55 AM EXECUTIVE RELATIONS SPECIALIST Inhaled Oxygen Concentration - - Weight 108.4 kg (239 lb) 09/29/2025 7:55 AM EXECUTIVE RELATIONS SPECIALIST Height 180.3 cm (5' 10.98) 05/13/2025 11:01 [...] 03/18/2025, 03/16/20 Medical Devices Implanted Type Area Hair Mixer Device Identifier Shelf Expiration Date Model / Serial / Lot [employer] Device Closure Vascade Od5 Fr Femoral Artery [id number] - [id number] Implanted:Qty: 1 on 03/16/2023 by Isaias Ashraf MD at [facility] [employer] 12/19/2024 [id number]-[id number] / / [id number] 0A Insurance COMM[employer]CIAL GENERIC [address] MEDICARE HMO HUMANA MEDICARE HMO HU[employer]NA MEDICARE HMO Care Teams Solar Photovoltaic Installer Relationship Specialty Start Date End Date Juan F Esparza MD [address] [address] PCP - General Family Medicine 02/13/23
[2025-10-17 12:36] LABS: Influenza A QL RT-PCR Negative (Negative); Influenza B QL RT-PCR Negative (Negative); RSV RNA, RT-PCR Negative (Negative); SARS-CoV-2 RNA PCR Negative (Negative)
== END 2025-10-17 11:02 | disposition home or self-care (01) ==
LOC: ANHLAB 11:03
PROVIDERS: PCP Family Medicine; Visit Provider Nurse Practitioner Family
DX: Z20.822 Contact with and (suspected) exposure to COVID-19 (principal); R50.9 Fever, unspecified
CPT/HCPCS: 87637

== ENCOUNTER → 2025-10-20 15:13 | Outpatient (CLI) | payer MEDICARE, SELFPAY ==
--- NOTE | ~2025-10-20 | XR_ITS ---
XR lumbar spine min 4V Indication: y Comparison: None Findings: The vertebral heights are intact. No fracture or subluxation. Moderate loss of disc height throughout Soft tissues unremarkable Impression: No acute abnormality. Reviewed, dictated and finalized at location P. UNICATION ASSISTANT Impression: No acute abnormality.
--- NOTE | ~2025-10-20 | XR_ITS ---
EXAMINATION: XR shoulder LT min 2V, 10/20/2025 15:15 SCHOOL HEALTH AIDE HISTORY: M75.02 - Adhesive capsulitis of left shoulder COMPARISON: No comparisons available. Findings: No acute fracture or malalignment. No significant degenerative changes. Soft tissues unremarkable. Impression: No acute fracture or malalignment. Reviewed, dictated and finalized at location P. OL HEALTH AIDE Impression: No acute fracture or malalignment.
--- OUTSIDE RECORDS SUMMARY | 2025-10-20 17:52 | XMS_ITS | Clinical Summary ---
Author Organization [facility] Address [address] [place] [id number] Care Team Providers Care Aircraft Engine Dismantler Name Role Phone Juan F Esparza MD Primary Care Provider [phone] Allergies Active Allergy Reactions Criticality Noted Date Comments Latex Rash Medium 01/24/[address] (PROTONIX) 40 mg EC tablet Take 1 tablet (40 mg total) by mouth daily 01/21/20 23 Active tamsulosin (FLOMAX) 0.4 mg extended release capsule Administer 1 capsule (0.4 mg total) per feeding tube 01/21/20 23 Active albuterol HFA (PROVENTIL HFA,VENTOLIN HFA,PROAIR HFA) 90 mcg/actuation inhaler Inhale 2 puffs every 4 (four) hours as needed 11/09/20 22 Active meloxicam (MOBIC) 15 mg tablet Take 1 tablet (15 mg total) by mouth daily 01/21/20 23 Active tiZANidine (ZANAFLEX) 2 mg tablet Take 1 tablet (2 mg total) by mouth every 8 (eight) hours as needed 11/04/20 22 Active fluticasone propionate (FLONASE) 50 mcg/actuation nasal spray Administer 1 spray into each nostril daily 01/21/20 23 Active cyanocobalamin (Vitamin B-12) 1,000 mcg tabletIndicati ons:Prevention of Vitamin B12 Deficiency Take 1 tablet (1,000 mcg total) by mouth daily Active HYDROcodone-ac etaminophen (NORCO) 5-325 mg per tabletIndicati ons:Pain Take 1 tablet by mouth every 6 [...] mg total) by mouth daily 30 capsule 03/18/20 25 026 Active rosuvastatin (CRESTOR) 40 mg tablet TAKE 1 TABLET EVERY DAY 90 tablet 1 08/20/20 25 Active lisinopriL (PRINIVIL,ZEST RIL) 40 mg tablet TAKE 1 TABLET EVERY DAY 90 tablet 1 08/20/20 25 Active ciprofloxacin (CIPRO) 500 mg tablet Take 1 tablet (500 mg total) by mouth 2 (two) times a day 14 tablet 10/18/20 25 Active oxyCODONE-acet aminophen (PERCOCET) 5-325 mg per tabletIndicati ons:Pain Take 1 tablet by mouth every 4 (four) hours as needed for pain 20 tablet 10/18/20 25 Active oxyCODONE-acet aminophen (PERCOCET) 5-325 mg per tabletIndicati ons:Pain Take 1 tablet by mouth every 4 (four) hours as needed for pain 20 tablet 10/18/20 25 025 Discontinued ciprofloxacin (CIPRO) 500 mg tablet Take 1 tablet (500 mg total) by mouth 2 (two) times a day 14 tablet 10/18/20 25 025 Discontinued Active Problems Problem Noted Date Diagnosed Date Angina pectoris 02/20/2023 Overview (02/20/2023): Added automatically from request for surgery [id number] Abnormal stress test 02/20/2023 Overview (02/20/2023): Added automatically from request for surgery [id number] Encounters Date Type Department Care Team Description 10/17/2025 11:03 PM GERONTOLOGICAL NURSE PRACTITIONER - 10/18/2025 2:34 AM GERONTOLOGICAL NURSE PRACTITIONER Emergency [facility] Emergency Department [address] [place] [address] Left hip pain (Primary Dx); Other microscopic hematuria Discharge Disposition: Discharge to home or self care 09/29/2025 8:00 AM GERONTOLOGICAL NURSE PRACTITIONER Office Visit [facility] [address] [facility] [facility] [address] [phone] Minor Kay MD MISHA (obstructive sleep apnea) (Primary Dx); Hypersomnia with sleep apnea; Obesity (BMI 30.0-34.9) 08/08/2025 Telephone [facility] [address] [place] [phone] Minor Kay MD 08/08/2025 Telephone [facility] [address] [place] [address] [address], [place] [phone] Minor Kay MD from Last 3 Months [...] making you feel afraid or unsafe? Denies 10/17/2025 Sex and Gender Information Value Date Recorded Sex Assigned at Not on file Legal Sex Male 8:01 PM GERONTOLOGICAL NURSE PRACTITIONER Gender Identity Male 01/24/2023 10:35 AM GERONTOLOGICAL NURSE PRACTITIONER Sexual Orientation Not on file Last Filed Vital Signs Vital Sign Reading Time Taken Comments Blood Pressure 118/76 10/18/2025 2:15 AM GERONTOLOGICAL NURSE PRACTITIONER Pulse 109 10/18/2025 2:15 AM GERONTOLOGICAL NURSE PRACTITIONER Temperature 37.2 C (99 F) 10/18/2025 2:15 AM GERONTOLOGICAL NURSE PRACTITIONER Respiratory Rate 15 10/18/2025 2:15 AM GERONTOLOGICAL NURSE PRACTITIONER Oxygen Saturation 90% 10/18/2025 2:15 AM GERONTOLOGICAL NURSE PRACTITIONER Inhaled Oxygen Concentration - - Weight 104.3 kg (230 lb) 10/17/2025 10:34 PM GERONTOLOGICAL NURSE PRACTITIONER Height 180.3 cm (5' 10.98) 05/13/2025 11:01 AM CDT Body Mass Index 32.09 05/13/2025 11:01 AM CDT Plan of Treatment Health Maintenance Due Date Last Done Comments Colon Cancer Screening-Colonoscopy 1955 Depression Screening 1957 Hepatitis C Screening 1957 Prostate Cancer Screening-PSA 1957 DTaP/Tdap/Td Vaccine (1 - Tdap) 1968 Hepatitis B Screening 1975 Pneumococcal vaccine 65+ (1 of 2 - PCV) 1976 Zoster Vaccine (2 of 3) 10/24/2017 08/29/2017 Well Visit 65+ 2022 Covid-19 Vaccine (4 - 2024-2 6 season) 2025 11/21/2021, 03/06/2021, 02/14/2021 Influenza Vaccine (#1) 2025 9, 09/13/2018, 08/29/2017, Additional history exists Fall Risk Assessment 03/18/2026 03/18/2025, 03/16/20 Abdominal Aortic Aneurysm (A AA) Screen Completed 10/18/2025 Medical Devices Implanted Type Area Food Prep Worker Device Identifier Shelf Expiration Date Model / Serial / Lot [employer] Device Closure Vascade Od5 Fr Femoral Artery [id number] - [id number] Implanted:Qty: 1 on 03/16/2023 by Isaias Ashraf MD at [facility] 12/19/2024 [id number] / / [id number] Procedures Procedure Name Priority Date/Time Associated Diagnosis Comments URINALYSIS, MICROSCOPIC ONLY STAT 10/18/2025 1:10 AM GERONTOLOGICAL NURSE PRACTITIONER INFLUENZA A/B, RSV, AND COVID-19 PCR STAT 10/18/2025 1:10 AM GERONTOLOGICAL NURSE PRACTITIONER URINALYSIS AND REFLEX TO MICROSCOPIC AND CULTURE STAT 10/18/2025 1:[address] NURSE PRACT[address] ABDOMEN PELVIS W CONTRAST ED 10/18/2025 12:19 AM GERONTOLOGICAL NURSE PRACTITIONER XR CHEST 1 VIEW ED 10/17/2025 11:41 PM GERONTOLOGICAL NURSE PRACTITIONER EGFR STAT 10/17/2025 11:15 PM GERONTOLOGICAL NURSE PRACTITIONER DIFFERENTIAL AUTO STAT 10/17/2025 11: 15 PM GERONTOLOGICAL NURSE PRACTITIONER SEPSIS LACTATE WITH REFLEX STAT 10/17/2025 11:15 PM GERONTOLOGICAL NURSE PRACTITIONER COMPREHENSIVE METABOLIC PANEL STAT 10/17/2025 11:15 PM GERONTOLOGICAL NURSE PRACTITIONER CBC WITH AUTO DIFFERENTIAL STAT 10/17/2025 11:15 PM GERONTOLOGICAL NURSE PRACTITIONER from Last 3 Months Results * Influenza A/B, RSV, and COVID-19 PCR Nasopharyngeal (10/18/2025 1:10 AM GERONTOLOGICAL NURSE PRACTITIONER) COVID-19 RNA Negative Negative Influenza A RNA Negative Negative [facility] ([place]) Influenza B RNA Negative Negative [facility] ([place]) RSV RNA Negative Negative [facility] Comment: Interpretive data: Testing performed by [facility]. This test is performed using the [employer] Xpert Xpress CoV-2/Flu/RSV plus assay. This is a multiplex, real- time reverse transcriptase PCR assay intended for the qualitative detection of nucleic acid from SARS-CoV-2, influenza A, influenza B, and respiratory syncytial virus. This assay has been cleared by the [place] Food and Drug administration. The performance characteristics have been verified by the [facility]. Results must be considered in the clinical context, and a negative result does not rule out infection. Interpretive Data last revised 2023 Nasopharyngeal 10/18/2025 1: 10 AM GERONTOLOGICAL NURSE PRACTITIONER 10/18/2025 1:12 AM GERONTOLOGICAL NURSE PRACTITIONER Narrative [facility] ([place]) - 10/18/2025 1:50 AM GERONTOLOGICAL NURSE PRACTITIONER Is the Patient experiencing symptoms consistent with COVID?->Unknown [facility] MICROBIOLOGY - GENERAL ORDE RABSAMIRA Final Result [facility] ([place]) [address] [facility] [place] [address] * (ABNORMAL) Urinalysis reflex to microscopic and culture Urine (10/18/2025 1:10 AM GERONTOLOGICAL NURSE PRACTITIONER) Color, ur Dark-Yellow Clarity, ur Clear Clear [facility] ([place]) Specific gravity, ur 1.010 1.003 - 1.030 [facility] ([place]) pH, urine 6.0 [facility] ([place]) Comment: Interpretive Data U rine pH is affected by diet, medications, systemic acid-base disturbances, and renal tubular function. pH may affect urinary stone formation. For example, urine pH below 6.0 may help reduce the tendency for calcium phosphate stones and pH greater than 6.0 may reduce the tendency for uric acid stone formation. Source: [facility] Current Interpretive Data was last revised on 2017 Protein, ur ql 1+(A) Negative [facility] ([place]) Glucose, ur ql Negative Negative [facility] ([place]) Ketones, ur Trace Negative [facility] ([place]) Bilirubin, ur Negative Negative [facility] ([place]) Blood, ur 2+(A) Negative [facility] ([place]) Urobilinogen, ur <2.0 <2.0 mg/dL [facility] ([place]) Nitrite, ur Negative Negative [facility] ([place]) Leukocyte esterase, ur Negative Negative [facility] ([place]) UA reflex comment Reflex to microscopic UA will be performed. [facility] ([place]) Urine 10/18/2025 1:10 AM GERONTOLOGICAL NURSE PRACTITIONER 10/18/2025 1:12 AM GERONTOLOGICAL NURSE PRACTITIONER [facility]CRO[facility] - GENERAL ORDE RABLES Final Result Performing Organization Address City/[facility]/ZIP Co de Phone Number [facility] ([place]) [address] [facility] [place] [address] * (ABNORMAL) Urinalysis, microscopic only (10/18/2025 1:10 AM GERONTOLOGICAL NURSE PRACTITIONER) WBC, ur 6-10(A) 0 - 5 /HPF RBC, ur 11-20(A) 0 - 2 /HPF [facility] ([place]) Epithelial cells, squamous, ur 1-5 0 - 5 /HPF [facility] ([place]) Bacteria, ur Trace(A) [facility] ([place]) Mucous, ur Present(A) [facility] ([place]) Culture Reflex Comment Reflex conditions for urine culture (WBC >10) not met. [facility] ([place]) Urine 10/18/2025 1:10 AM GERONTOLOGICAL NURSE PRACTITIONER 10/18/2025 1:12 AM GERONTOLOGICAL NURSE PRACTITIONER [facility] URINE ORDERABLES Final Resu lt Performing Organization Address City/[facility]/ZIP Co de Phone Number [facility] ([place]) [address] [facility] [place] [address] * CT Abdomen Pelvis W Contrast (10/18/2025 12:19 AM GERONTOLOGICAL NURSE PRACTITIONER) Anatomical Region Laterality Modality Body N/A Computed Tomogra phy 10/18/2025 12:2 6 AM GERONTOLOGICAL NURSE PRACTITIONER Impressions 10/18/2025 12:26 AM GERONTOLOGICAL NURSE PRACTITIONER 1. No acute intra-abdominal pathology. Electronically signed by: Hari Escamilla M.D., MPH Narrative 10/18/2025 12:26 AM GERONTOLOGICAL NURSE PRACTITIONER EXAMINATION: CT ABDOMEN PELVIS W CONTRAST TECHNIQUE: Computed tomographic examination of the abdomen and pelvis with contrast. HISTORY: Left hip pain fever COMPARISON:I do not have the prior study available for comparison FINDINGS: There is mild emphysema noted at the lung bases. Liver spleen pancreas adrenal glands and kidneys are normal. Perinephric stranding is present. There is no obstruction pneumoperitoneum or free fluid. The appendix is visualized and is normal. There is no retroperitoneal mesenteric or pelvic lymphadenopathy. Atherosclerotic disease of the aorta and branch vessels noted. 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 Bilaterally there is mild hip osteoarthritis. I do not see a displaced left hip fracture. Osseous windows demonstrate multilevel degenerative disc disease. Procedure Note Hari Escamilla MD - 10/18/2025 EXAMINATION: CT ABDOMEN PELVIS W CONTRAST TECHNIQUE: Computed tomographic examination of the abdomen and pelvis with contrast. HISTORY: Left hip pain fever COMPARISON:I do not have the prior study available for comparison FINDINGS: There is mild emphysema noted at the lung bases. Liver spleen pancreas adrenal glands and kidneys are normal. Perinephric stranding is present. There is no obstruction pneumoperitoneum or free fluid. The appendix is visualized and is normal. There is no retroperitoneal mesenteric or pelvic lymphadenopathy. Atherosclerotic disease of the aorta and branch vessels noted. 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 Bilaterally there is mild hip osteoarthritis. I do not see a displaced left hip fracture. Osseous windows demonstrate multilevel degenerative disc disease. IMPRESSION: 1. No acute intra-abdominal pathology. Electronically signed by: Hari Escamilla M.D., MPH [facility] CT PROCEDURES Final Result * XR Chest 1 Vw Portable (10/17/2025 11:41 PM GERONTOLOGICAL NURSE PRACTITIONER) Anatomical Region Laterality Modality Body, Chest N/A Computed Radiogr aphy 10/17/2025 11:4 2 PM GERONTOLOGICAL NURSE PRACTITIONER Impressions 10/17/2025 11:42 PM GERONTOLOGICAL NURSE PRACTITIONER Comparison with 04/13/2023. There is no focal pneumonic consolidation pneumothorax or pleural effusion. The heart and mediastinum are normal. Electronically signed by: Hari Escamilla M.D., MPH Narrative 10/17/2025 11:42 PM GERONTOLOGICAL NURSE PRACTITIONER EXAMINATION: 1 view chest radiograph Procedure Note Hari Escamilla MD - 10/17/2025 EXAMINATION: 1 view chest radiograph IMPRESSION: Comparison with 04/13/2023. There is no focal pneumonic consolidation pneumothorax or pleural effusion. The heart and mediastinum are normal. Electronically signed by: Hari Escamilla M.D., MPH [facility] XR PROCEDURES Final Result * Sepsis Lactate w/ Reflex (10/17/2025 11:15 PM GERONTOLOGICAL NURSE PRACTITIONER) Sepsis Lactate 1.5 0.7 - 2.0 mmol/L Blood 10/17/2025 11:1 5 PM GERONTOLOGICAL NURSE PRACTITIONER 10/17/2025 11:18 PM GERONTOLOGICAL NURSE PRACTITIONER [facility] BLOOD ORDERABLES Final Resu lt [facility] ([place]) [address] [facility] [email or web address] [address] * eGFR (10/17/2025 11:15 PM GERONTOLOGICAL NURSE PRACTITIONER) eGFR 62 >=60 mL/min/1. 73 m2 Comment: Interpretive Data Reference Interval Normal >/= 90 mL/min/1.73m2 Mildly decreased* 60 - 89 mL/min/1.73m2 Mildly to moderately decreased 45 - 59 mL/min/1.73m2 Moderately to severely decreased 30 - 44 mL/min/1.73m2 Severely decreased 15 - 29 mL/min/1.73m2 Kidney Failure < 15 mL/min/1.73m2 *Relative to young adult level Estimated glomerular filtration rate is determined by the 2020 CKD-EPI equation recommended by the National Kidney Foundation (A Unifying Approach to GFR Estimation: Recommendations of the NKF-ASK Task Force on Reassessing the Inclusion of Race in Diagnosing Kidney Disease, JASN 2020). The CKD-EPI equation should not be used for patients with unstable renal function and has not been validated in children and those over 70. Current interpretive data was last reviewed 2021. Blood 10/17/2025 11:1 5 PM GERONTOLOGICAL NURSE PRACTITIONER 10/17/2025 11:19 PM GERONTOLOGICAL NURSE PRACTITIONER [facility] BLOOD ORDERABLES Final Resu lt [facility] ([place]) [address] [facility] [place] [address] * (ABNORMAL) Differential, auto (10/17/2025 11:15 PM GERONTOLOGICAL NURSE PRACTITIONER) Neutrophil abs 9.85(H) 1.50 - 6.50 K/cumm Imm gran abs 0.03 0.00 - 0.10 K/cumm [facility] ([place]) Lymphocyte abs 0.61(L) 0.80 - 3.30 K/cumm [facility] ([place]) Monocyte abs 1.19(H) 0.20 - 0.80 K/cumm [facility] ([place]) Eosinophil abs 0.00 0.00 - 0.50 K/cumm [facility] ([place]) Basophil abs 0.02 0.00 - 0.10 K/cumm [facility] ([place]) Neutrophil pct 84.1 % [facility] ([place]) Comment: Interpretive Data Percent cell count reference ranges are not reported, since discordance with absolute values may lead to misinterpretation of CBC data. Current Interpretive Data was last revised on 2018. Imm gran pct 0.3 % [facility] ([place]) Comment: Interpretive Data Percent cell count reference ranges are not reported, since discordance with absolute values may lead to misinterpretation of CBC data. Current Interpretive Data was last revised on 2018. Lymphocyte pct 5.2 % [facility] ([place]) Comment: Interpretive Data Percent cell count reference ranges are not reported, since discordance with absolute values may lead to misinterpretation of CBC data. Current Interpretive Data was last revised on 2018. Monocyte pct 10.2 % [facility] ([place]) Comment: Interpretive Data Percent cell count reference ranges are not reported, since discordance with absolute values may lead to misinterpretation of CBC data. Current Interpretive Data was last revised on 2018. Eosinophil pct 0.0 % [facility] ([place]) Comment: Interpretive Data Percent cell count reference ranges are not reported, since discordance with absolute values may lead to misinterpretation of CBC data. Current Interpretive Data was last revised on 2018. Basophil pct 0.2 % [facility] ([place]) Comment: Interpretive Data Percent cell count reference ranges are not reported, since discordance with absolute values may lead to misinterpretation of CBC data. Current Interpretive Data was last revised on 2018. Blood 10/17/2025 11:1 5 PM GERONTOLOGICAL NURSE PRACTITIONER 10/17/2025 11:18 PM GERONTOLOGICAL NURSE PRACTITIONER us [facility] BLOOD ORDERABLES Final Resu lt Performing Organization Address City/[facility]/ZIP Co de Phone Number [facility] ([place]) [address] [facility] [email or web address] [place] [address] * (ABNORMAL) CBC with auto differential (10/17/2025 11:15 PM GERONTOLOGICAL NURSE PRACTITIONER) WBC 11.70(H) 3.80 - 9.90 K/cumm Hgb 14.2 13.0 - 17.5 g/dL [facility] ([place]) Hct 41.5 38.9 - 50.3 % [facility] ([place]) Plt 177 150 - 400 K/cumm [facility] ([place]) MPV 10.0 9.1 - 12.3 fL [facility] ([place]) RBC 4.94 4.30 - 5.80 M/cumm [facility] ([place]) MCV 84.0 81.3 - 96.4 fL [facility] ([place]) MCH 28.7 27.1 - 33.3 pg [facility] ([place]) MCHC 34.2 32.3 - 35.7 g/dL [facility] ([place]) RDW CV 14.5 11.1 - 14.9 % [facility] ([place]) RDW SD 44.3 35.7 - 48.1 fL [facility] ([place]) NRBC abs 0.00 0.00 - 0.01 K/cumm [facility] ([place]) Blood 10/17/2025 11:1 5 PM GERONTOLOGICAL NURSE PRACTITIONER 10/17/2025 11:18 PM GERONTOLOGICAL NURSE PRACTITIONER us [facility] BLOOD ORDERABLES Final Resu lt [facility] ([place]) [address] [place] [address] * (ABNORMAL) Comprehensive metabolic panel (10/17/2025 11:15 PM GERONTOLOGICAL NURSE PRACTITIONER) Sodium 133(L) 135 - 145 mmol/L Potassium, pl 4.1 3.3 - 4.9 mmol/L [facility] ([place]) Chloride 97 97 - 110 mmol/L [facility] ([place]) CO2 26 22 - 32 mmol/L [facility] ([place]) Anion gap 10 2 - 15 mmol/L [facility] ([place]) BUN 16 6 - 25 mg/dL [facility] ([place]) Creatinine 1.26 0.80 - 1.30 mg/dL [facility] ([place]) Glucose 100 70 - 199 mg/dL [facility] ([place]) Comment: Interpretive Data Fasting glucose >/= 126 mg/dl is diagnostic for diabetes. Fasting is defined as no caloric intake for at least 8 hours. Fasting glucose between 100 mg/dl to 125 mg/dl is diagnostic of prediabetes. In a patient with classic symptoms of hyperglycemia or hyperglycemic crisis, a random glucose >/= 200 mg/dl is diagnostic for diabetes. In the absence of unequivocal hyperglycemia, results should be confirmed by repeat testing. The classification and Diagnosis of Diabetes Diabetes Care 2021; 46: S19-S40. Current interpretive data was last revised 2022. Calcium 9.0 8.5 - 10.3 mg/dL [facility] ([place]) Bilirubin, total 0.6 0.1 - 1.2 mg/dL [facility] ([place]) Protein, pl 6.7 6.5 - 8.5 g/dL [facility] ([place]) Albumin 3.8 3.5 - 5.0 g/dL [facility] ([place]) Alk phos 54 40 - 130 Units/L [facility] ([place]) ALT 55 7 - 55 Units/L [facility] ([place]) AST 52(H) 10 - 50 Units/L [facility] ([place]) Blood 10/17/2025 11:1 5 PM GERONTOLOGICAL NURSE PRACTITIONER 10/17/2025 11:19 PM GERONTOLOGICAL NURSE PRACTITIONER [facility] BLOOD ORDERABLES Final Resu lt [facility] [place]) [address] [facility] [place] [address] from Last 3 Months Insurance COMMERCIAL GENERIC MEDICARE O MEDICARE HMO [facility] MEDICARE HMO Care Teams Aircraft Engine Dismantler Relationship Specialty Start Date End Date Juan F Esparza MD [address] [address] PCP - General Family Medicine 02/13/23
== END ==
LOC: EXPTRAD 15:15
PROVIDERS: PCP Family Medicine; Visit Provider Family Medicine
DX: M75.02 Adhesive capsulitis of left shoulder (principal); M54.50 Low back pain, unspecified; G89.29 Other chronic pain
CPT/HCPCS: 72110; 73030